=== PATIENT | female | born 1945 | race African-American/Black ===

== ENCOUNTER → 2016-12-25 | Outpatient (CLI) | payer OTHER ==
[2016-11-05 16:34] VITALS: BP 140/68
[~2016-12-25] MED LIST: AMLO10TA2 PO; ATOR40TA PO; CARV25TA PO; CHOL20004 PO; CLON0.1T12 PO; DIPH25CA58 PO; ENOX30DI3 SQ; ESCI5TAB8 PO; FAMO40TA4 PO; FERR-26 PO; FURO-68 PO; GLIP5TAB10 PO; HYDR-2869 PO; HYDR100T24 PO; INSU100I17 SQ; LOSA1TAB17 PO; METO100T11 PO; MONT10TA9 PO; MULT-208 PO; NITR0.4T SL
--- NOTE | 2016-12-25 16:13 | KCIC ---
PROCEDURE Bone density DEXA. HISTORY Postmenopausal female. COMPARISON None. FINDINGS Dual photon densitometry of the lumbar spine and left proximal femur is performed. Bone mineral density values are measured in grams per cm2. Lumbar spine, L1-L4, total bone mineral density 1.238, T-score 1.7, Z-score 3.4. Left total femur bone mineral density 0.853, T-score -0.7, Z-score 0.1. World Health Organization criteria for bone mineral density interpretation classify patient's as normal (T-score at or above -1.0), osteopenic (T-score between -1 and -2.5), or osteoporotic (T-score at or below -2.5). IMPRESSION Normal bone mineral density of the lumbar spine and the left femur. Electronically signed by: Alfredito Boykin MD (Dec 25, 2016 16:12:52)
== END | disposition home or self-care (01) ==
LOC: KCIC MAMMO 15:05
PROVIDERS: ATTEND Internal Medicine
DX: Z12.31 Encounter for screening mammogram for malignant neoplasm of breast (principal); Z78.0 Asymptomatic menopausal state
CPT/HCPCS: 77080; G0202; 77067

== ENCOUNTER → 2018-06-22 | Outpatient (CLI) | payer BC ==
[2016-11-05 16:34] VITALS: BP 140/68
[~2018-06-22] MED LIST changes: -CHOL20004 PO; +CHOL200074 PO; -ESCI5TAB8 PO; -FERR-26 PO; +FERR325T14 PO; +LEXAPRO5 MG PO; -LOSA1TAB17 PO; +LOSA1TAB22 PO; +METO-247 PO; -METO100T11 PO
--- NOTE | 2018-06-23 08:39 | KCIC ---
RENAL COMPLETE BILATERAL History: Acute kidney failure Comparison: October 31, 2016 Findings: Multiple sonographic images of the kidneys and urinary bladder are submitted. Right kidney measured 12.1 x 6.6 x 6.3 cm. Left kidney measured 11.6 x 5.4 x 4.3 cm. There is no hydronephrosis of either kidney. Urinary bladder is not visualized as patient voided prior to the exam. There are hypoechoic foci of the kidneys bilaterally. Largest focus superiorly of the right kidney measures 4.2 x 3.3 x 4.6 cm, some internal echoes present and not associated with internal vascularity on color Doppler imaging. There is also superior hypoechoic lesion of the left kidney about 1.4 x 1 x 1.6 cm, mild internal echoes present without internal vascularity on color Doppler imaging. There is some variable thinning of the renal cortices also relative increased echogenicity of the renal parenchyma. Cysts were not demonstrated on previous exam. Impression: 1. There is no hydronephrosis of either kidney. Relative increased echogenicity of the renal parenchyma could be due to medical renal disease. There are somewhat complex cysts of the bilateral kidneys. Urinary bladder is not seen as patient voided prior to exam. Electronically signed by: Anupam Kapoor MD (06/23/2018 8:36 AM) [id number]
== END | disposition home or self-care (01) ==
LOC: KCIC US 14:55
PROVIDERS: ATTEND Internal Medicine Nephrology
DX: N28.1 Cyst of kidney, acquired (principal); I13.0 Hypertensive heart and chronic kidney disease with heart failure and stage 1 through stage 4 chronic kidney disease, or unspecified chronic kidney disease; E11.22 Type 2 diabetes mellitus with diabetic chronic kidney disease; I50.33 Acute on chronic diastolic (congestive) heart failure; N18.4 Chronic kidney disease, stage 4 (severe); E78.5 Hyperlipidemia, unspecified; K21.9 Gastro-esophageal reflux disease without esophagitis; Z88.8 Allergy status to other drugs, medicaments and biological substances
CPT/HCPCS: 76770

== ENCOUNTER → 2018-06-24 | Outpatient (CLI) | payer BC ==
[2016-11-05 16:34] VITALS: BP 140/68
--- NOTE | 2018-06-24 16:54 | KCIC ---
Bilateral digital screening mammograms: Reason for examination: Routine screening. Comparison is made to previous studies dated 12/25/2016 and 06/09/2014. Interpretation is made with the benefit of CAD. The skin and nipples show no abnormalities. No abnormal lymph nodes are seen. The breast parenchyma is predominantly fatty. (Breast density: Category A.) There are no dominant masses, suspicious calcifications or architectural distortions. Vascular calcifications are again seen. Impression: No evidence of malignancy. Recommend routine screening. BI-RADS Category 1: Negative. "Our facility is accredited by the [employer] Mammography Program." This patient's information has been entered into a reminder system for the patient to be notified with the results of her examination and a target date for the next mammogram. Electronically signed by: Juanita Ott MD (06/24/2018 4:51 PM) [id number]
== END | disposition home or self-care (01) ==
LOC: KCIC MAMMO 15:09
PROVIDERS: ATTEND Internal Medicine
DX: Z12.31 Encounter for screening mammogram for malignant neoplasm of breast (principal); I13.0 Hypertensive heart and chronic kidney disease with heart failure and stage 1 through stage 4 chronic kidney disease, or unspecified chronic kidney disease; E11.22 Type 2 diabetes mellitus with diabetic chronic kidney disease; I50.33 Acute on chronic diastolic (congestive) heart failure; N18.4 Chronic kidney disease, stage 4 (severe); E78.5 Hyperlipidemia, unspecified; E87.6 Hypokalemia; K21.9 Gastro-esophageal reflux disease without esophagitis; E83.42 Hypomagnesemia; Z88.8 Allergy status to other drugs, medicaments and biological substances
CPT/HCPCS: 77067

== ENCOUNTER → 2019-04-04 | Outpatient (CLI) | payer OTHER ==
[2019-03-08 11:15] VITALS: BP 198/84
[~2019-04-04] MED LIST changes: -AMLO10TA2 PO; +AMLO10TA8 PO; +MAG HYDROX/ALUMINUM HYD/SIMETH 30 ML ORAL.SUSP PO ONE; +ZOLPIDEM 5 MG TABLET. PO ONE
--- NOTE | 2019-04-05 13:24 | SLEEP ---
DATE OF STUDY: 04/04/2019 SLEEP STUDY ATTENDING PHYSICIAN: Dre Ferro MD. The patient is a 74-year-old who weighs 175 pounds with a BMI of 30. The patient's Tad score was 16 suggesting moderate to severe subjective hypersomnia. The patient has a history of sleep apnea and has been on BiPAP at 20/12. The patient has lost weight and that was close to 40 pounds and as a result was referred back for another split night study. During the night study, the patient spent 416 minutes in bed and slept for 297 minutes with a low sleep efficiency of 71%. Sleep latency was 38 minutes with a REM latency of 335 minutes. Overall, sleep architecture showed increased stage 1 sleep, normal stage 2 sleep, normal slow wave and normal REM sleep. During the initial diagnostic portion of the study, the patient slept for 96 minutes. During that time, there were 9 obstructive apneas, 5 mixed apneas, no central apneas and 28 hypopneas. The patient's apnea-hypopnea index was 26 per hour with a supine index of 43 per hour. REM sleep was not seen during the diagnostic portion of the study. Nocturnal oximetry study revealed an average oxygen saturation 95% with the lowest of 89%. Only 0.2 minutes were spent in oxygen saturation less than 89%. EKG monitoring revealed no arrhythmias. No clinically significant PLMS seen. The patient met the criteria for CPAP initiation. It was started at 5 cm water and titrated up to 18 cm water. At the final pressure, the patient slept for 53 minutes. The patient had entire time in REM sleep. There was no supine sleep seen. The patient's AHI was reduced to 5 per hour due to few rebound central apneas. Oxygen saturation remained above 94%. The patient used a small size full face mask. IMPRESSION: 1. Moderate sleep apnea-hypopnea syndrome with worsening during supine sleep. Total AHI of 26 per hour and a supine AHI of 43 per hour. REM sleep was not seen during the diagnostic portion of the study. 2. No clinically significant nocturnal hypoxia. 3. No clinically significant periodic limb movements. RECOMMENDATIONS: 1. CPAP at 18 cm water completely eliminated the patient's sleep apnea and should be used on a nightly basis. 2. Follow up in 4-6 weeks to assess compliance with CPAP and to document clinical improvement. 3. Weight loss is advised. 4. Avoid [employer] depressants. 5. Caution regarding driving until symptoms of sleep apnea resolve with the use of CPAP. UNA STEWART MD DR: SACHA/leslie JOB#: [id number] / [id number] DER Ward MD [facility]
== END | disposition home or self-care (01) ==
LOC: SLPLAB 19:02
PROVIDERS: ATTEND Internal Medicine Critical Care Medicine
DX: G47.33 Obstructive sleep apnea (adult) (pediatric) (principal)
CPT/HCPCS: 95810

== ENCOUNTER 2020-07-31 11:27 | Inpatient (IN) | payer OTHER ==
[~2020-07-31] VITALS: Ht 162.6 cm; Wt 71.4 kg
[~2020-07-31 11:27] MED LIST changes: +ASPI-886 PO; +DILT240C33 PO; +EPOE20002 SUBCUT; +FLUT16SP NS; +IBUP-985 PO; +INSU100I13 SQ; +INSU100I27 SQ; +ISOS30TA4 PO; +ISOS60TA2 PO; +LORA10TA3 PO; -MAG HYDROX/ALUMINUM HYD/SIMETH 30 ML ORAL.SUSP PO ONE; +MONT10TA49 PO; -MONT10TA9 PO; -NITR0.4T SL; +NITR0.4T24 SL; +SENN-82 PO; -ZOLPIDEM 5 MG TABLET. PO ONE
[2020-07-31 12:18] LABS: BASO # 0.1 x10^3/uL (0.0-0.2); BASO % 1 % (0-3); EOS # 0.2 x10^3/uL (0.0-0.7); EOS % 3 % (0-3); HEMATOCRIT 31.6 % (36.0-47.0); HEMOGLOBIN 10.8 g/dL (12.0-15.5); LYMPH # 1.5 x10^3/uL (1.0-4.8); LYMPH % 25 % (24-48); MEAN CORPUSCULAR HEMOGLOBIN 31 pg (25-35); MEAN CORPUSCULAR HGB CONC 34 g/dL (31-37); MEAN CORPUSCULAR VOLUME 91 fL (79-100); MONO # 0.6 x10^3/uL (0.0-1.1); MONO % 10 % (0-9); NEUT # 3.7 x10^3/uL (1.8-7.7); NEUT % 61 % (31-73); PLATELET COUNT 185 x10^3/uL (140-400); RED BLOOD COUNT 3.46 x10^6/uL (3.50-5.40); RED CELL DISTRIBUTION WIDTH 14.6 % (11.5-14.5)
[2020-07-31 12:24] LABS: CALCIUM 9.2 mg/dL (8.5-10.1); CREATININE 4.7 mg/dL (0.6-1.0); GFR 10.9; POTASSIUM 3.7 mmol/L (3.5-5.1)
[2020-07-31 12:28] LABS: PROTHROMBIN TIME PATIENT 12.7 SEC (11.7-14.0)
[2020-07-31 12:28] LABS: BILIRUBIN,URINE NEGATIVE (NEG); CLARITY,URINE CLEAR; COLOR,URINE YELLOW; NITRITE,URINE NEGATIVE (NEG); PH,URINE 7.5 (<5.0-8.0); PROTEIN,URINE >=300 mg/dL (NEG-TRACE)
[2020-07-31 12:30] LABS: ALBUMIN 3.5 g/dL (3.4-5.0); ALBUMIN/GLOBULIN RATIO 1.1 (1.0-1.7); TOTAL BILIRUBIN 0.5 mg/dL (0.2-1.0); TOTAL PROTEIN 6.8 g/dL (6.4-8.2)
[2020-07-31] MEDS ORDERED: CONTRAST GIVEN. MC PRN (12:30)
[2020-07-31] MEDS ORDERED: IOHEXOL 350 MG/ML 100 ML VIAL. IV ONE (12:30)
--- NOTE | 2020-07-31 12:42 | PHYS DOC ---
Past Medical History Past Medical History: Hypertension, Renal Failure Past Surgical History: Other Additional Past Surgical Histo: LEFT ARM FISTULA Smoking Status: Never Smoker Alcohol Use: None Drug Use: None General Adult EDM: Chief Complaint: MULTIPLE COMPLAINTS HPI: HPI: Patient is a 75 year old female who presents to the emergency room from Dr. Cee's office with multiple complaints. Dr. Cee called and stated that she has been having neck swelling that has been very significant over the last week. She does have a fistula on the same side and there is some concern for a clot. He did an ultrasound which was normal. He was requesting a CT angios of the ne ck and chest to evaluate for clot. Patient states that she has been having pain and swelling in her neck. She also developed abdominal pain in her lower abdomen with nausea, vomiting, diarrhea overnight. She feels weak and is having a difficult time walking. She denies any URI symptoms. Review of Systems: Review of Systems: General: Denies fever, chills, sweats,. Reports fatigue Eyes: Denies drainage, blurred vision, eye redness HENT: Denies rhinorrhea, sore throat, earache Respiratory: Denies cough, shortness of breath, wheezing Cardiac: Denies edema, palpitations, chest pain GI: Reports abdominal pain, Nausea, vomiting MSK: Denies back pain. Reports neck pain Skin: Denies rash, jaundice Neuro: Denies headache, dizziness Psychiatric: Denies SI/HI Heart Score: Risk Factors: Risk Factors: DM, Current or recent (<one month) smoker, HTN, HLP, family history of CAD, obesity. Risk Scores: Score 0 - 3: 2.5% MACE over next 6 weeks - Discharge Home Score 4 - 6: 20.3% MACE over next 6 weeks - Admit for Clinical Observation Score 7 - 10: 72.7% MACE over next 6 weeks - Early Invasive Strategies Allergies: Allergies: Allergies Coded Allergies Type Severity Reaction Last Updated Verified hydralazine Allergy Intermediate 04/20/19 Yes lisinopril Allergy Intermediate 04/20/19 Yes metformin Allergy Intermediate 04/20/19 Yes sertraline Allergy Intermediate 04/20/19 Yes Physical Exam: PE: General: Awake, alert, NAD. Well Nourished, well hydrated. Cooperative HEENT: Atraumatic, EOMI, PERRL, airway patent Neck: Supple, trachea midline Respiratory: CTA bilaterally, normal effort, no wheezing/crackles CV: RRR, no murmur, cap refill <2, left fistula and upper arm with thrill GI: Soft, nondistended, mild lower abdominal tenderness, no masses MSK: No obvious deformities Skin: Warm, dry, intact Neuro: A&O x3, speech NL, sensory and motor grossly intact, no focal deficits Psych: Normal affect, normal mood, not suicidal or homicidal Current Patient Data: Vital Signs: Vital Signs Date Time Temp Pulse Resp B/P (MAP) Pulse Ox O2 Delivery O2 Flow Rate FiO2 07/31/20 11:54 98.3 64 18 210/85 (126) 96 Room Air 98.3 EKG: EKG: [] Radiology/Procedures: Radiology/Procedures: [] Course & Med Decision Making: Course & Med Decision Making Pertinent Labs and Imaging studies reviewed. (See chart for details) Patient 75-year-old female presents the emergency room multiple complaints. CT angios of the neck and chest were done to evaluate for clot and was negative. CT abdomen pelvis was also added due to new onset abdominal symptoms and was negative. At this time patient is having a difficult time walking and is unable to care for herself at home. She will be admitted to Dr. Cee for further evaluation. Rolo Disclaimer: Rolo Disclaimer: This electronic medical record was generated, in whole or in part, using a voice recognition dictation system. Departure Departure Impression: Primary Impression: ESRD (end stage renal disease) Additional Impressions: Weakness Neck swelling Disposition: ADMITTED INPATIENT Condition: IMPROVED Referrals: DRE CEE MD (PCP) Justicifation of Admission Dx: Justifications for Admission: Justification of Admission Dx: Yes KONG JOÉS MD Jul 31, 2020 12:42
[2020-07-31 12:43] LABS: BACTERIA,URINE FEW /HPF (0-FEW); RBC,URINE RARE /HPF (0-2)
--- NOTE | 2020-07-31 13:42 | RAD ---
EXAM: CT Angiogram of the Neck INDICATION: Right sided neck swelling. TECHNIQUE: CT images were obtained through the neck per standard CTA protocol. Multiplanar and 3D reformatted images were generated from the CT dataset on an independent workstation. All CT scans performed at this facility utilize dose optimization techniques as appropriate to the exam, including the following: Automated exposure control and adjustment of the mA and/or KV according to patient size (this includes techniques or standardized protocols for targeted exams where dose is indication/reason for exam). IV CONTRAST: Administered COMPARISON: None FINDINGS: AORTA: 3 vessel configuration of arch. No dissection or acute aortic injury. No hemodynamically significant great vessel origin stenosis. RIGHT CAROTID: Right common carotid artery is widely patent. There is a retropharyngeal course to the distal common carotid artery with similar course of the proximal right internal cervical carotid artery. Calcified plaque is present at the right carotid bulb. No flow-limiting stenosis is apparent. LEFT CAROTID: Left common carotid artery is tortuous but widely patent. Also takes a slightly retropharyngeal course, continued by the proximal left cervical internal carotid artery. There is dense, near circumferential plaque at the carotid bulb and proximal right internal carotid artery that results in at least 50-69 percent luminal stenosis. VERTEBRAL ARTERIES: Codominant No evidence of dissection or flow limiting stenosis. Subclavian arteries (SCAs) are visualized and patent. SOFT TISSUES: Soft tissues show enlargement of the bilateral thyroid lobes with a dominant inferior pole left thyroid lobe nodule measuring 3 cm, recommended for more detailed evaluation by thyroid ultrasound. Lung apices are clear. Patient has a maxillary dental prosthesis. Where applicable, evaluation of ICA stenosis was performed using NASCET criteria, where the site of greatest stenosis is compared to the diameter of the ICA distal to the carotid bulb. IMPRESSION: 1. Scattered atherosclerotic plaquing and cervical arterial tortuosity, potentially sequelae of long-standing hypertension. There is 50-69 percent stenosis of the left cervical internal carotid artery near its origin. Otherwise no hemodynamically significant. This stenosis is identified in the cervical great vessels. 2. Incidental thyromegaly with the dominant left thyroid lobe nodule. The enlarged thyroid may explain the patient's right-sided neck swelling. Correlate clinically. Recommend correlation with thyroid ultrasound. EXAM: CT Chest angiogram with IV contrast INDICATION: Reason: Neck swelling TECHNIQUE: Multi-detector row CT images were acquired from the thoracic inlet through the upper abdomen with the use of IV contrast. Images were acquired in the arterial phase and reviewed with 3-D VRT reformatted images. Sagittal and coronal images were acquired from the transaxial data. All CT scans performed at this facility utilize dose optimization techniques as appropriate to the exam, including the following: Automated exposure control and adjustment of the mA and/or KV according to patient size (this includes techniques or standardized protocols for targeted exams where dose is indication/reason for exam). IV CONTRAST: Administered COMPARISON: CT angiogram of the neck FINDINGS: CARDIOVASCULAR: Mild cardiomegaly. Coronary calcifications. No pericardial effusion. Normal caliber thoracic aorta with scattered calcifications but no aneurysm and no flow-limiting stenosis or evidence of dissection. Conventional arch anatomy. Visualized pulmonary arteries are unremarkable as well. There is some respiratory motion artifact that degrades detail. MEDIASTINUM & WILL: No adenopathy or masses. LUNGS: Scattered minimal atelectatic changes in the bilateral lower lobes. No pulmonary infiltrate, nodule, or other focal abnormality is appreciated. PLEURAL SPACE: No pleural effusions or pneumothorax. OSSEOUS & SOFT TISSUE: Unremarkable ABDOMEN: The visualized portions of the upper abdomen show a 6 mm round low-density lesion in the right hepatic lobe as well as post cholecystectomy surgical changes. Partially imaged nodule 1.9 cm in the vicinity of the superior pole left kidney is also evident.. IMPRESSION: 1. No evidence of a mediastinal mass causing SVC syndrome. 2. There is a probable multinodular thyroid goiter, recommended for ultrasound evaluation on an elective basis. It probably explains the patient's neck swelling. 3. There is cardiomegaly and atherosclerosis including coronary artery disease. Recommend clinical follow-up. EXAM: CT Abdomen and Pelvis with IV contrast INDICATION: Reason: abd pain omni 350 90ml (from cta neck/chest) / Spl. Instructions: / History: TECHNIQUE: Multi-detector row CT images were acquired from the lung bases through the abdomen and pelvis with the use of IV contrast. Sagittal and coronal images were acquired from the transaxial data. All CT scans performed at this facility utilize dose optimization techniques as appropriate to the exam, including the following: Automated exposure control and adjustment of the mA and/or KV according to patient size (this includes techniques or standardized protocols for targeted exams where dose is indication/reason for exam). IV CONTRAST: Administered ORAL CONTRAST: Not administered COMPARISON: CT angiogram chest of the same day, and abdomen and pelvis CT without IV contrast of 10/31/2016.. FINDINGS: LOWER CHEST: Cardiomegaly. Possible trace right pleural effusion. LIVER: 4 mm low-density lesion in the right hepatic lobe is statistically likely a cyst but not completely characterized on this single phase exam. BILIARY SYSTEM: Gallbladder is surgically absent. There is postcholecystectomy biliary distention with the common bile duct in the pancreatic head measuring 11 mm in diameter. PANCREAS: Unremarkable SPLEEN: Unremarkable ADRENALS: Unremarkable KIDNEYS & URETERS: Left kidney shows a superior pole 2 cm nodule measuring 50 HU that is not clearly cystic. It is enlarged slightly from 2016 where it previously measured 1.3 cm wide (and measured 12.5 HU density) and requires formal renal mass protocol imaging given increase in size and soft tissue density. Otherwise the left kidney and ureter are unremarkable. The right kidney shows interval increase in size of the previously subtle 3 cm slightly hyperdense lesion which now measures 6.7 cm in diameter and has Hounsfield units measuring 33, consistent with a hemorrhagic cyst or solid mass. Due to its increase in size and heterogeneous increased internal density, this requires additional imaging and is recommended for renal mass protocol abdominal MRI or CT. An initial renal ultrasound could be pursued in initial characterization. Additional smaller lesions in the right renal cortex are seen, too small to characterize. The right ureter is unremarkable. BLADDER: Decompressed. Mild diffuse wall thickening is nonspecific and could reflect cystitis in the appropriate clinical context. The bladder neck is funneled in the pelvic floor and this could reflect some amount of pelvic floor relaxation. REPRODUCTIVE ORGANS: Hysterectomy. Ovaries are unremarkable. GASTROINTESTINAL: Scattered colonic diverticuli. No findings suspicious for acute diverticulitis. The appendix is normal. MESENTERY/PERITONEUM/RETROPERITONEUM: Trace ascites. No free air. No discrete fluid collection. VASCULAR: Scattered arterial calcifications. No aneurysm. No findings suspicious for flow-limiting stenosis. No large vessel occlusion. LYMPH NODES: No adenopathy OSSEOUS & SOFT TISSUES: Unremarkable IMPRESSION: Although no specific cause for abdominal pain is identified, patient does have interval change in dominant lesions in both kidneys that are recommended for renal mass protocol imaging follow-up to exclude enlarging hemorrhagic cysts or solid renal neoplasms. No other acute findings in the abdomen or pelvis are identified on contrast enhanced CT. Electronically signed by: Martinez Barahona MD (07/31/2020 1:39 PM) [id number]
[2020-07-31 14:42] LABS: FREE T4 1.1 ng/dL (0.76-1.46); THYROID STIM HORMONE (TSH) 1.092 uIU/mL (0.358-3.74)
[2020-07-31] MEDS ORDERED: IV NORMAL SALINE 500ML BAG 500 ML IV ONE (17:15)
--- NOTE | 2020-07-31 17:30 | NUR ---
Pt here from ER and placed in bed. Rates pain at 0/10.
[2020-07-31] MEDS ORDERED: INSU100V13 SQ (18:01)
[2020-07-31] MEDS ORDERED: HYDR-2868 PO (18:01)
--- NOTE | 2020-07-31 18:02 | NUR ---
Pt's home meds unknown, pharmacy contacted, med list updated with current meds per pt's pharmacy.
[2020-07-31] MEDS ORDERED: ACETAMINOPHEN 325 MG TABLET. PO PRN (18:45)
[2020-07-31] MEDS ORDERED: ONDANSETRON PF 4 MG/2 ML VIAL. IVP PRN (18:45)
[2020-07-31 19:05] VITALS: BP 179/56
[2020-07-31] MEDS ORDERED: INSULIN GLARGINE SYRINGE. SQ SCH (21:00)
--- NOTE | 2020-07-31 21:02 | NUR ---
Pt. states she is not allergic to hydralazine. Medication was taken off allergy list.
[2020-07-31] MEDS: ATORVASTATIN CALCIUM 40 MG TABLET. PO SCH (21:39)
[2020-07-31] MEDS: hydrALAZINE 25 MG TABLET PO SCH (21:39)
[2020-07-31] MEDS: CARVEDILOL 12.5 MG TABLET. PO SCH (21:40)
[2020-07-31 22:45] VITALS: BP 160/43
[2020-07-31] MEDS: fentaNYL PF VIAL 100 MCG/2 ML VIAL IV PRN (23:22)
[2020-08-01 02:45] VITALS: BP 174/54
[2020-08-01 07:00] VITALS: BP 172/57
[2020-08-01 07:25] LABS: BASO % 0 % (0-3); EOS # 0.1 x10^3/uL (0.0-0.7); EOS % 1 % (0-3); HEMATOCRIT 34.9 % (36.0-47.0); HEMOGLOBIN 11.7 g/dL (12.0-15.5); LYMPH # 1.6 x10^3/uL (1.0-4.8); LYMPH % 18 % (24-48); MEAN CORPUSCULAR HEMOGLOBIN 31 pg (25-35); MEAN CORPUSCULAR HGB CONC 34 g/dL (31-37); MEAN CORPUSCULAR VOLUME 92 fL (79-100); MONO # 0.5 x10^3/uL (0.0-1.1); MONO % 6 % (0-9); NEUT # 6.8 x10^3/uL (1.8-7.7); NEUT % 75 % (31-73); PLATELET COUNT 224 x10^3/uL (140-400)
[2020-08-01] MEDS ORDERED: IV DEXTROSE 5% 250 ML IV ONE (07:29)
[2020-08-01] MEDS ORDERED: DEXTROSE 50% 25 GM / 50ML DISP.SYRIN. IV ONE ×2 (07:30→07:45)
[2020-08-01 07:37] LABS: ALBUMIN 3.5 g/dL (3.4-5.0); ALBUMIN/GLOBULIN RATIO 1.1 (1.0-1.7); CALCIUM 9.3 mg/dL (8.5-10.1); CREATININE 5.7 mg/dL (0.6-1.0); GFR 8.7; POTASSIUM 3.4 mmol/L (3.5-5.1); TOTAL BILIRUBIN 0.6 mg/dL (0.2-1.0); TOTAL PROTEIN 6.7 g/dL (6.4-8.2)
--- NOTE | 2020-08-01 09:05 | PDOC2 ---
GI CONSULT Date of Service: DATE: 08/01/20 TIME: 09:05 Reason For Consult: vomiting HPI: HPI: 75 y/o female evaluated in ER for a variety of complaints. Tells me 2 weeks of "neck pooping out like a coke bottle" (on right side), swollen right eye, and bilateral foot pain (says related to neuropathy). Not the best historian. GI-[facility], had some nausea w/o vomiting. Appetite not great. H/o reflux controlled w/ medication. No dysphagia or odynophagia. Stooled Thursday, felt constipated yesterday. Hard to say if deals w/ constipation on a regular basis - might take a stool softener or laxative sometimes? No hematochezia or melena. Not sure about weight loss. Reports EGD and colonoscopy in [place] in 2009 - recalls "diverticulitis." S/p cholecystectomy (doesn't remember if had stones). Denies liver, pancreas, and PUD history. Chronic anemia w/ iron studies c/w ACD in 2019 (and normal B12). Past notes mentions h/o hiatal hernia, gastritis, diverticulosis, hemorrhoids, and IBS-D. Med list includes ASA, epogen, and famotidine. PMH: PMH: HTN, HLD, CAMILLA, ESRD on HD, depression, OA, DM cholecystectomy, tonsillectomy, hysterectomy, LAV fistula Social History: ALCOHOL: none Drugs: None ROS: GEN: Denies fevers, chills, sweats HEENT: Denies blurred vision, sore throat CV: Denies chest pain RESP: Denies shortness of air, cough GI: Per HPI : Denies hematuria, dysuria ENDO: Denies weight changes NEURO: +neuropathy pain MSK: Denies weakness, joint pain/swelling SKIN: Denies jaundice, pruritus Vitals: Vitals: Vital Signs Date Time Temp Pulse Resp B/P (MAP) Pulse Ox O2 Delivery O2 Flow Rate FiO2 08/01/20 07:00 97.8 61 18 172/57 (95) 95 Room Air 97.8 08/01/20 02:45 2.0 Labs: Labs: Laboratory Tests Test 07/31/20 12:10 07/31/20 12:18 07/31/20 21:04 08/01/20 06:37 White Blood Count 6.0 x10^3/uL (4.0-11.0) 9.0 x10^3/uL (4.0-11.0) Red Blood Count 3.46 x10^6/uL (3.50-5.40) 3.80 x10^6/uL (3.50-5.40) Hemoglobin 10.8 g/dL (12.0-15.5) 11.7 g/dL (12.0-15.5) Hematocrit 31.6 % (36.0-47.0) 34.9 % (36.0-47.0) Mean Corpuscular Volume 91 fL (79-100) 92 fL (79-100) Mean Corpuscular Hemoglobin 31 pg (25-35) 31 pg (25-35) Mean Corpuscular Hemoglobin Concent 34 g/dL (31-37) 34 g/dL (31-37) Red Cell Distribution Width 14.6 % (11.5-14.5) 15.0 % (11.5-14.5) Platelet Count 185 x10^3/uL (140-400) 224 x10^3/uL (140-400) Neutrophils (%) (Auto) 61 % (31-73) 75 % (31-73) Lymphocytes (%) (Auto) 25 % (24-48) 18 % (24-48) Monocytes (%) (Auto) 10 % (0-9) 6 % (0-9) Eosinophils (%) (Auto) 3 % (0-3) 1 % (0-3) Basophils (%) (Auto) 1 % (0-3) 0 % (0-3) Neutrophils # (Auto) 3.7 x10^3/uL (1.8-7.7) 6.8 x10^3/uL (1.8-7.7) Lymphocytes # (Auto) 1.5 x10^3/uL (1.0-4.8) 1.6 x10^3/uL (1.0-4.8) Monocytes # (Auto) 0.6 x10^3/uL (0.0-1.1) 0.5 x10^3/uL (0.0-1.1) Eosinophils # (Auto) 0.2 x10^3/uL (0.0-0.7) 0.1 x10^3/uL (0.0-0.7) Basophils # (Auto) 0.1 x10^3/uL (0.0-0.2) 0.0 x10^3/uL (0.0-0.2) Prothrombin Time 12.7 SEC (11.7-14.0) Prothromb Time International Ratio 1.0 (0.8-1.1) Sodium Level 138 mmol/L (136-145) 143 mmol/L (136-145) Potassium Level 3.7 mmol/L (3.5-5.1) 3.4 mmol/L (3.5-5.1) Chloride Level 100 mmol/L (98-107) 102 mmol/L (98-107) Carbon Dioxide Level 34 mmol/L (21-32) 32 mmol/L (21-32) Anion Gap 4 (6-14) 9 (6-14) Blood Urea Nitrogen 33 mg/dL (7-20) 37 mg/dL (7-20) Creatinine 4.7 mg/dL (0.6-1.0) 5.7 mg/dL (0.6-1.0) Estimated GFR (Cockcroft-Gault) 10.9 8.7 BUN/Creatinine Ratio 7 (6-20) 6 (6-20) Glucose Level 187 mg/dL (70-99) 49 mg/dL (70-99) Calcium Level 9.2 mg/dL (8.5-10.1) 9.3 mg/dL (8.5-10.1) Total Bilirubin 0.5 mg/dL (0.2-1.0) 0.6 mg/dL (0.2-1.0) Aspartate Amino Transf (AST/SGOT) 17 U/L (15-37) 17 U/L (15-37) Alanine Aminotransferase (ALT/SGPT) 15 U/L (14-59) 12 U/L (14-59) Alkaline Phosphatase 108 U/L (46-116) 101 U/L (46-116) Total Protein 6.8 g/dL (6.4-8.2) 6.7 g/dL (6.4-8.2) Albumin 3.5 g/dL (3.4-5.0) 3.5 g/dL (3.4-5.0) Albumin/Globulin Ratio 1.1 (1.0-1.7) 1.1 (1.0-1.7) Lipase 64 U/L (73-393) Thyroid Stimulating Hormone (TSH) 1.092 uIU/mL (0.358-3.74) Free Thyroxine 1.10 ng/dL (0.76-1.46) Urine Collection Type Unknown Urine Color Yellow Urine Clarity Clear Urine pH 7.5 (<5.0-8.0) Urine Specific [place] 1.015 (1.000-1.030) Urine Protein >=300 mg/dL (NEG-TRACE) Urine Glucose (UA) Negative mg/dL (NEG) Urine Ketones (Stick) Negative mg/dL (NEG) Urine Blood Negative (NEG) Urine Nitrite Negative (NEG) Urine Bilirubin Negative (NEG) Urine Urobilinogen Dipstick 1.0 mg/dL (0.2 mg/dL) Urine Leukocyte Esterase Negative (NEG) Urine RBC Rare /HPF (0-2) Urine WBC 1-4 /HPF (0-4) Urine Squamous Epithelial Cells Many /LPF Urine Bacteria Few /HPF (0-FEW) Glucose (Fingerstick) 169 mg/dL (70-99) Test 08/01/20 07:14 08/01/20 07:28 08/01/20 08:19 Glucose (Fingerstick) 44 mg/dL (70-99) 58 mg/dL (70-99) 140 mg/dL (70-99) Allergies: Coded Allergies: lisinopril (Verified Allergy, Intermediate, 04/20/19) cough metformin (Verified Allergy, Intermediate, 04/20/19) sertraline (Verified Allergy, Intermediate, 04/20/19) Medications: Current Medications Medications (Trade) Dose Ordered Sig/Elfego Route PRN Reason Start Time Stop Time Status Last Admin Dose Admin Iohexol (Omnipaque 350 Mg/ml) 90 ml 1X ONCE IV 07/31/20 12:30 07/31/20 12:31 DC 07/31/20 12:48 Sodium Chloride 500 ml @ 150 mls/hr 1X ONCE IV 07/31/20 17:15 07/31/20 20:34 DC 07/31/20 18:23 Atorvastatin Calcium (Lipitor) 40 mg QHS PO 07/31/20 21:00 07/31/20 21:39 Hydralazine HCl (Apresoline) 25 mg TID PO 07/31/20 21:00 07/31/20 21:39 Carvedilol (Coreg) 25 mg BIDWMEALS PO 07/31/20 20:00 07/31/20 21:40 Insulin Glargine (Lantus Syringe) 25 unit QHS SQ 07/31/20 21:00 08/01/20 08:03 DC 07/31/20 21:47 Acetaminophen (Tylenol) 650 mg PRN Q6HRS PRN PO PAIN 07/31/20 18:45 07/31/20 21:39 Fentanyl Citrate (Fentanyl 2ml Vial) 25 mcg PRN Q3HRS PRN IV SEVERE PAIN 7-10 07/31/20 22:15 07/31/20 23:22 Dextrose (Dextrose 50%-Water Syringe) 12.5 gm 1X ONCE IV 08/01/20 07:45 08/01/20 07:47 DC 08/01/20 07:40 Imaging: Imaging: Neck CTA IMPRESSION: 1. Scattered atherosclerotic plaquing and cervical arterial tortuosity, potentially sequelae of long-standing hypertension. There is 50-69 percentste nosis of the left cervical internal carotid artery near its origin. Otherwise no hemodynamically significant. This stenosis is identified in the cervical great vessels. 2. Incidental thyromegaly with the dominant left thyroid lobe nodule. The enlarged thyroid may explain the patient's right-sided neck swelling. Correlate clinically. Recommend correlation with thyroid ultrasound. Chest CTA IMPRESSION: 1. No evidence of a mediastinal mass causing SVC syndrome. 2. There is a probable multinodular thyroid goiter, recommended for ultrasound evaluation on an elective basis. It probably explains the patient's neck swelling. 3. There is cardiomegaly and atherosclerosis including coronary artery disease. Recommend clinical follow-up. CT A/P IMPRESSION: Although no specific cause for abdominal pain is identified, patient does have interval change in dominant lesions in both kidneys that are recommended for renal mass protocol imaging follow-up to exclude enlarginghemorrhagic cysts or solid renal neoplasms. No other acute findings in theabdomen or pelvis are identified on contrast enhanced CT. PE: GEN: NAD HEENT: Atraumatic, PERRL, poor dentition LUNGS: CTAB HEART: RRR ABD: NABS, S/ND, mild LLQ discomfort EXTREMITY: No edema SKIN: No rashes, no jaundice NEURO/PSYCH: A & O 3, flat A/P: A/P: Neck and eye swelling, feet pain Nausea, decreased appetite, ?constipation, ?lower abd pain ACD, ESRD, DM Thyromegaly/thyroid nodule, renal mass GERD - on H2 edin (ordered 3x weekly here) CRC screen - last in 2009 in [place] ?IBS Diverticulosis S/p cholecystectomy -- GI issues vague, will return w/ Dr. Ramos. Agree with acid-space and storage clerk - might increase frequency or consider trial of PPI. Miralax, etc. if she wants. NATALIA REYES Aug 01, 2020 09:05
[2020-08-01] MEDS: CARVEDILOL 12.5 MG TABLET. PO SCH ×2 (10:02→17:00)
[2020-08-01] MEDS: ASPIRIN ENTERIC COATED 81 MG TABLET.DR. PO SCH (10:03)
[2020-08-01] MEDS: hydrALAZINE 25 MG TABLET PO SCH ×3 (10:03→20:26)
[2020-08-01] MEDS: CITALOPRAM 10 MG TABLET. PO SCH (10:04)
[2020-08-01] MEDS: ISOSORBIDE MONONITRATE ER 30 MG TAB.ER.24H PO SCH (10:05)
[2020-08-01] MEDS: amLODIPine BESYLATE 10 MG TABLET PO SCH (10:05)
[2020-08-01] MEDS ORDERED: IV NORMAL SALINE 1000ML BAG 1,000 ML IV PRN ×2 (10:26)
[2020-08-01] MEDS ORDERED: ALBUMIN HUMAN 25% 200 ML IV PRN (10:30)
[2020-08-01] MEDS ORDERED: POLYETHYLENE GLYCOL 3350 17 GM PACKET. PO PRN (10:30)
[2020-08-01] MEDS ORDERED: DIALYSIS PATIENT. MC PRN ×2 (10:30)
[2020-08-01] MEDS ORDERED: BISACODYL 5 MG TABLET.DR. PO PRN (10:30)
--- NOTE | 2020-08-01 10:38 | PDOC ---
Provider Note Date of Service: DATE: 08/01/20 TIME: 10:38 Provider Note H&P dictated #[id number] Justifications for Admission Other Justification DRE CEE MD Aug 01, 2020 10:38
[2020-08-01 10:57] VITALS: BP 184/59
--- NOTE | 2020-08-01 11:48 | NUR ---
SW following. Discussed with RN, pt from home alone, currently requiring 2L oxygen (SW to determine if pt uses at home). Pt does dialysis MWF at [facility] (ph: [phone]). Pt on a clear liquid diet, PT/OT ordered. SW will continue to follow.
--- NOTE | 2020-08-01 12:00 | NUR ---
Pt asked if she remembered where scoprs in [facility] were done. Pt states she does not remember but would not ask friends.
--- NOTE | 2020-08-01 12:02 | PDOC2 ---
CONSULT Date of Consult Date of Consult DATE: 08/01/20 TIME: 11:57 History of Present Illness Reason for Visit: The patient is a 75 year old female who was admitted through the ER with several complaints including right neck swelling and abdominal pain/diarrhea. She was admitted to Dr Ferro, and he states that she had a recent outpatient thyroid sonogram due to a right neck mass. The patient is a poor historian but does state that she has noticed a bothersome right neck mass. Past Medical History Cardiovascular: CHF, HTN, Hyperlipidemia Pulmonary: Other GI: GERD, Gastritis, Irritable bowel disease Heme/Onc: Anemia NOS Psych: Depression Rheumatologic: No pertinent hx Infectious disease: No pertinent hx Renal/: Chronic renal insuff Endocrine: Diabetes Past Surgical History Past Surgical History: Cholecystectomy, Tonsillectomy, Hysterectomy Family History Family History: Adopted Social History ALCOHOL: none Drugs: None Lives: with Family Domestic Violence: Neg Current Problem List Problem List Problems Medical Problems: (1) ESRD (end stage renal disease) Status: Acute (2) Neck swelling Status: Acute (3) Weakness Status: Acute Current Medications Current Medications Current Medications Iohexol (Omnipaque 350 Mg/ml) 90 ml 1X ONCE IV Last administered on 07/31/20at 12:48; Start 07/31/20 at 12:30; Stop 07/31/20 at 12:31; Status DC Info (CONTRAST GIVEN -- Rx MONITORING) 1 each PRN DAILY PRN MC SEE COMMENTS; Start 07/31/20 at 12:30; Stop 08/02/20 at 12:29 Sodium Chloride 500 ml @ 150 mls/hr 1X ONCE IV Last administered on 07/31/20at 18:23; Start 07/31/20 at 17:15; Stop 07/31/20 at 20:34; Status DC Amlodipine Besylate (Norvasc) 10 mg DAILY PO Last administered on 08/01/20at 10:05; Start 08/01/20 at 09:00 Aspirin (Ecotrin) 81 mg DAILYWBKFT PO Last administered on 08/01/20at 10:03; Start 08/01/20 at 08:00 Atorvastatin Calcium (Lipitor) 40 mg QHS PO Last administered on 07/31/20at 21:39; Start 07/31/20 at 21:00 Diltiazem HCl (Cardizem 24hr Cd) 240 mg DAILY PO Last administered on 08/01/20at 10:04; Start 08/01/20 at 09:00 Hydralazine HCl (Apresoline) 25 mg TID PO Last administered on 08/01/20at 10:03; Start 07/31/20 at 21:00 Carvedilol (Coreg) 25 mg BIDWMEALS PO Last administered on 08/01/20at 10:02; Start 07/31/20 at 20:00 Darbepoetin Tj (ARANESP for DIALYSIS PTS) 40 mcg WEEKLYHS SQ ; Start 08/06/20 at 21:00 Citalopram Hydrobromide (CeleXA) 10 mg DAILY PO Last administered on 08/01/20at 10:04; Start 08/01/20 at 09:00 Famotidine (Pepcid) 20 mg QMWF PO ; Start 08/01/20 at 16:00; Stop 08/01/20 at 11:13; Status DC Insulin Glargine (Lantus Syringe) 25 unit QHS SQ Last administered on 07/31/20at 21:47; Start 07/31/20 at 21:00; Stop 08/01/20 at 08:03; Status DC Isosorbide Mononitrate (Imdur) 60 mg DAILY PO Last administered on 08/01/20at 10:05; Start 08/01/20 at 09:00 Acetaminophen (Tylenol) 650 mg PRN Q6HRS PRN PO PAIN Last administered on 07/31/20at 21:39; Start 07/31/20 at 18:45 Ondansetron HCl (Zofran) 4 mg PRN Q6HRS PRN IVP NAUSEA/VOMITING; Start 07/31/20 at 18:45 Fentanyl Citrate (Fentanyl 2ml Vial) 25 mcg PRN Q3HRS PRN IV SEVERE PAIN 7-10 Last administered on 07/31/20at 23:22; Start 07/31/20 at 22:15 Dextrose 250 ml @ As Directed STK-MED ONCE IV ; Start 08/01/20 at 07:29; Stop 08/01/20 at 07:29; Status DC Dextrose (Dextrose 50%-Water Syringe) 25 gm STK-MED ONCE IV ; Start 08/01/20 at 07:30; Stop 08/01/20 at 07:30; Status DC Dextrose (Dextrose 50%-Water Syringe) 12.5 gm 1X ONCE IV Last administered on 08/01/20at 07:40; Start 08/01/20 at 07:45; Stop 08/01/20 at 07:47; Status DC Polyethylene Glycol (miraLAX PACKET) 17 gm PRN DAILY PRN PO CONSTIPATION-1ST CHOICE; Start 08/01/20 at 10:30 Bisacodyl (Dulcolax Tab) 5 mg PRN DAILY PRN PO CONSTIPATION-2ND CHOICE; Start 08/01/20 at 10:30 Sodium Chloride 1,000 ml @ 1,000 mls/hr Q1H PRN IV hypotension; Start 08/01/20 at 10:26; Stop 08/01/20 at 16:25 Albumin Human 200 ml @ 200 mls/hr 1X PRN PRN IV Hypotension; Start 08/01/20 at 10:30; Stop 08/01/20 at 16:29 Sodium Chloride 1,000 ml @ 400 mls/hr Q2H30M PRN IV PATENCY; Start 08/01/20 at 10:26; Stop 08/01/20 at 22:25 Info (PHARMACY MONITORING -- do not chart) 1 each PRN DAILY PRN MC SEE COMMENTS; Start 08/01/20 at 10:30 Info (PHARMACY MONITORING -- do not chart) 1 each PRN DAILY PRN MC SEE COMMENTS; Start 08/01/20 at 10:30 Heparin Sodium (Porcine) (Heparin Sodium) 5,000 unit Q12HR SQ ; Start 08/01/20 at 21:00 Pantoprazole Sodium (Protonix) 40 mg DAILYAC PO ; Start 08/01/20 at 12:00 Calcium Polycarbophil (Fibercon) 525 mg QODAY PO ; Start 08/01/20 at 12:00 Active Scripts Active Isosorbide Mononitrate Er (Isosorbide Mononitrate) 60 Mg Tab.er.24h 1 Tab PO D AILY Aspirin Ec (Aspirin) 81 Mg Tablet.dr 81 Mg PO DAILYWBKFT 30 Days Diltiazem 24Hr Cd (Diltiazem HCl) 240 Mg Cap.er.24h 240 Mg PO DAILY 30 Days Coreg (Carvedilol) 25 Mg Tablet 1 Tab PO BID Reported Levemir (Insulin Detemir) 100 Unit/1 Ml Vial 25 Unit SQ DAILY Hydralazine Hcl 25 Mg Tablet 1 Tab PO TID Epogen (Epoetin Tj) 2,000 Unit/1 Ml Vial 12,500 Unit SUBCUT Q2WKS Lexapro (Escitalopram Oxalate) 5 Mg Tablet 1 Tab PO DAILY Amlodipine Besylate 10 Mg Tablet 10 Mg PO DAILY Famotidine 40 Mg Tablet 40 Mg PO HS Lipitor (Atorvastatin Calcium) 40 Mg Tablet 1 Tab PO DAILY Allergies Allergies: Coded Allergies: lisinopril (Verified Allergy, Intermediate, 04/20/19) cough metformin (Verified Allergy, Intermediate, 04/20/19) sertraline (Verified Allergy, Intermediate, 04/20/19) ROS General: YES: Fatigue Eyes: No Blurry vision, No Decreased vision, No Double vision, No Dry eyes, No Excessive tearing, No Eye Pain, No Itchy Eyes, No Loss of vision, No Photophobia, No Scotomata, No Uses contacts, No Uses glasses, No Other HEENT: YES: Other (R neck mass) ALLERGY AND IMMUNOLOGY: No: Hives, Insect Bite Sensitivity, Itchy/Watery Eyes, Nasal Congestion, Post Nasal Drip, Seasonal Allergies, Other Hematological and Lymphatic: No: Bleeding Problems, Blood Clots, Blood Transfusions, Brusing, Night Sweats, Pallor, Swollen Lymph Nodes, Other Cardiovascular: No Chest Pain, No Palpitations, No Orthopnea, No Paroxysmal Noc. Dyspnea, No Edema, No Lt Headedness, No Other Gastrointestinal: Yes Nausea, Yes Abdominal Pain, Yes Diarrhea Genitourinary: No Dysuria, No Frequency, No Incontinence, No Hematuria, No Retention, No Discharge, No Urgency, No Pain, No Flank Pain, No Other, No , No , No , No , No , No , No Neurological: No Behavorial Changes, No Bowel/Bladder ControlChng, No Confusion, No Dizziness, No Gait Disturbance, No Headaches, No Impaired Coord/balance, No Memory Loss, No Numbness/Tingling, No Seizures, No Speech Problems, No Tremors, No Visual Changes, No Weakness, No Other Skin: No Dry Skin, No Eczema, No Hair Changes, No Lumps, No Mole Changes, No Mottling, No Nail Changes, No Pruritus, No Rash, No Skin Lesion Changes, No Other, No Acne Physical Exam General: Alert, Oriented X3 HEENT: Other (R thyroid enlarged, soft, not fixed, no clear adenopathy) Abdomen: Soft Extremities: No clubbing, No cyanosis Skin: No rashes Neuro: Normal speech Vitals VITALS Vital Signs Date Time Temp Pulse Resp B/P (MAP) Pulse Ox O2 Delivery O2 Flow Rate FiO2 08/01/20 10:57 97.7 66 17 184/59 (100) 96 Nasal Cannula 2.0 97.7 Labs Labs Laboratory Tests Test 07/31/20 12:10 07/31/20 12:18 07/31/20 21:04 08/01/20 06:37 White Blood Count 6.0 x10^3/uL (4.0-11.0) 9.0 x10^3/uL (4.0-11.0) Red Blood Count 3.46 x10^6/uL (3.50-5.40) 3.80 x10^6/uL (3.50-5.40) Hemoglobin 10.8 g/dL (12.0-15.5) 11.7 g/dL (12.0-15.5) Hematocrit 31.6 % (36.0-47.0) 34.9 % (36.0-47.0) Mean Corpuscular Volume 91 fL (79-100) 92 fL (79-100) Mean Corpuscular Hemoglobin 31 pg (25-35) 31 pg (25-35) Mean Corpuscular Hemoglobin Concent 34 g/dL (31-37) 34 g/dL (31-37) Red Cell Distribution Width 14.6 % (11.5-14.5) 15.0 % (11.5-14.5) Platelet Count 185 x10^3/uL (140-400) 224 x10^3/uL (140-400) Neutrophils (%) (Auto) 61 % (31-73) 75 % (31-73) Lymphocytes (%) (Auto) 25 % (24-48) 18 % (24-48) Monocytes (%) (Auto) 10 % (0-9) 6 % (0-9) Eosinophils (%) (Auto) 3 % (0-3) 1 % (0-3) Basophils (%) (Auto) 1 % (0-3) 0 % (0-3) Neutrophils # (Auto) 3.7 x10^3/uL (1.8-7.7) 6.8 x10^3/uL (1.8-7.7) Lymphocytes # (Auto) 1.5 x10^3/uL (1.0-4.8) 1.6 x10^3/uL (1.0-4.8) Monocytes # (Auto) 0.6 x10^3/uL (0.0-1.1) 0.5 x10^3/uL (0.0-1.1) Eosinophils # (Auto) 0.2 x10^3/uL (0.0-0.7) 0.1 x10^3/uL (0.0-0.7) Basophils # (Auto) 0.1 x10^3/uL (0.0-0.2) 0.0 x10^3/uL (0.0-0.2) Prothrombin Time 12.7 SEC (11.7-14.0) Prothromb Time International Ratio 1.0 (0.8-1.1) Sodium Level 138 mmol/L (136-145) 143 mmol/L (136-145) Potassium Level 3.7 mmol/L (3.5-5.1) 3.4 mmol/L (3.5-5.1) Chloride Level 100 mmol/L (98-107) 102 mmol/L (98-107) Carbon Dioxide Level 34 mmol/L (21-32) 32 mmol/L (21-32) Anion Gap 4 (6-14) 9 (6-14) Blood Urea Nitrogen 33 mg/dL (7-20) 37 mg/dL (7-20) Creatinine 4.7 mg/dL (0.6-1.0) 5.7 mg/dL (0.6-1.0) Estimated GFR (Cockcroft-Gault) 10.9 8.7 BUN/Creatinine Ratio 7 (6-20) 6 (6-20) Glucose Level 187 mg/dL (70-99) 49 mg/dL (70-99) Calcium Level 9.2 mg/dL (8.5-10.1) 9.3 mg/dL (8.5-10.1) Total Bilirubin 0.5 mg/dL (0.2-1.0) 0.6 mg/dL (0.2-1.0) Aspartate Amino Transf (AST/SGOT) 17 U/L (15-37) 17 U/L (15-37) Alanine Aminotransferase (ALT/SGPT) 15 U/L (14-59) 12 U/L (14-59) Alkaline Phosphatase 108 U/L (46-116) 101 U/L (46-116) Total Protein 6.8 g/dL (6.4-8.2) 6.7 g/dL (6.4-8.2) Albumin 3.5 g/dL (3.4-5.0) 3.5 g/dL (3.4-5.0) Albumin/Globulin Ratio 1.1 (1.0-1.7) 1.1 (1.0-1.7) Lipase 64 U/L (73-393) Thyroid Stimulating Hormone (TSH) 1.092 uIU/mL (0.358-3.74) Free Thyroxine 1.10 ng/dL (0.76-1.46) Urine Collection Type Unknown Urine Color Yellow Urine Clarity Clear Urine pH 7.5 (<5.0-8.0) Urine Specific [place] 1.015 (1.000-1.030) Urine Protein >=300 mg/dL (NEG-TRACE) Urine Glucose (UA) Negative mg/dL (NEG) Urine Ketones (Stick) Negative mg/dL (NEG) Urine Blood Negative (NEG) Urine Nitrite Negative (NEG) Urine Bilirubin Negative (NEG) Urine Urobilinogen Dipstick 1.0 mg/dL (0.2 mg/dL) Urine Leukocyte Esterase Negative (NEG) Urine RBC Rare /HPF (0-2) Urine WBC 1-4 /HPF (0-4) Urine Squamous Epithelial Cells Many /LPF Urine Bacteria Few /HPF (0-FEW) Glucose (Fingerstick) 169 mg/dL (70-99) Test 08/01/20 07:14 08/01/20 07:28 08/01/20 08:19 Glucose (Fingerstick) 44 mg/dL (70-99) 58 mg/dL (70-99) 140 mg/dL (70-99) Laboratory Tests Test 07/31/20 12:10 07/31/20 12:18 07/31/20 21:04 08/01/20 06:37 White Blood Count 6.0 x10^3/uL (4.0-11.0) 9.0 x10^3/uL (4.0-11.0) Red Blood Count 3.46 x10^6/uL (3.50-5.40) 3.80 x10^6/uL (3.50-5.40) Hemoglobin 10.8 g/dL (12.0-15.5) 11.7 g/dL (12.0-15.5) Hematocrit 31.6 % (36.0-47.0) 34.9 % (36.0-47.0) Mean Corpuscular Volume 91 fL (79-100) 92 fL (79-100) Mean Corpuscular Hemoglobin 31 pg (25-35) 31 pg (25-35) Mean Corpuscular Hemoglobin Concent 34 g/dL (31-37) 34 g/dL (31-37) Red Cell Distribution Width 14.6 % (11.5-14.5) 15.0 % (11.5-14.5) Platelet Count 185 x10^3/uL (140-400) 224 x10^3/uL (140-400) Neutrophils (%) (Auto) 61 % (31-73) 75 % (31-73) Lymphocytes (%) (Auto) 25 % (24-48) 18 % (24-48) Monocytes (%) (Auto) 10 % (0-9) 6 % (0-9) Eosinophils (%) (Auto) 3 % (0-3) 1 % (0-3) Basophils (%) (Auto) 1 % (0-3) 0 % (0-3) Neutrophils # (Auto) 3.7 x10^3/uL (1.8-7.7) 6.8 x10^3/uL (1.8-7.7) Lymphocytes # (Auto) 1.5 x10^3/uL (1.0-4.8) 1.6 x10^3/uL (1.0-4.8) Monocytes # (Auto) 0.6 x10^3/uL (0.0-1.1) 0.5 x10^3/uL (0.0-1.1) Eosinophils # (Auto) 0.2 x10^3/uL (0.0-0.7) 0.1 x10^3/uL (0.0-0.7) Basophils # (Auto) 0.1 x10^3/uL (0.0-0.2) 0.0 x10^3/uL (0.0-0.2) Prothrombin Time 12.7 SEC (11.7-14.0) Prothromb Time International Ratio 1.0 (0.8-1.1) Sodium Level 138 mmol/L (136-145) 143 mmol/L (136-145) Potassium Level 3.7 mmol/L (3.5-5.1) 3.4 mmol/L (3.5-5.1) Chloride Level 100 mmol/L (98-107) 102 mmol/L (98-107) Carbon Dioxide Level 34 mmol/L (21-32) 32 mmol/L (21-32) Anion Gap 4 (6-14) 9 (6-14) Blood Urea Nitrogen 33 mg/dL (7-20) 37 mg/dL (7-20) Creatinine 4.7 mg/dL (0.6-1.0) 5.7 mg/dL (0.6-1.0) Estimated GFR (Cockcroft-Gault) 10.9 8.7 BUN/Creatinine Ratio 7 (6-20) 6 (6-20) Glucose Level 187 mg/dL (70-99) 49 mg/dL (70-99) Calcium Level 9.2 mg/dL (8.5-10.1) 9.3 mg/dL (8.5-10.1) Total Bilirubin 0.5 mg/dL (0.2-1.0) 0.6 mg/dL (0.2-1.0) Aspartate Amino Transf (AST/SGOT) 17 U/L (15-37) 17 U/L (15-37) Alanine Aminotransferase (ALT/SGPT) 15 U/L (14-59) 12 U/L (14-59) Alkaline Phosphatase 108 U/L (46-116) 101 U/L (46-116) Total Protein 6.8 g/dL (6.4-8.2) 6.7 g/dL (6.4-8.2) Albumin 3.5 g/dL (3.4-5.0) 3.5 g/dL (3.4-5.0) Albumin/Globulin Ratio 1.1 (1.0-1.7) 1.1 (1.0-1.7) Lipase 64 U/L (73-393) Thyroid Stimulating Hormone (TSH) 1.092 uIU/mL (0.358-3.74) Free Thyroxine 1.10 ng/dL (0.76-1.46) Urine Collection Type Unknown Urine Color Yellow Urine Clarity Clear Urine pH 7.5 (<5.0-8.0) Urine Specific [place] 1.015 (1.000-1.030) Urine Protein >=300 mg/dL (NEG-TRACE) Urine Glucose (UA) Negative mg/dL (NEG) Urine Ketones (Stick) Negative mg/dL (NEG) Urine Blood Negative (NEG) Urine Nitrite Negative (NEG) Urine Bilirubin Negative (NEG) Urine Urobilinogen Dipstick 1.0 mg/dL (0.2 mg/dL) Urine Leukocyte Esterase Negative (NEG) Urine RBC Rare /HPF (0-2) Urine WBC 1-4 /HPF (0-4) Urine Squamous Epithelial Cells Many /LPF Urine Bacteria Few /HPF (0-FEW) Glucose (Fingerstick) 169 mg/dL (70-99) Test 08/01/20 07:14 08/01/20 07:28 08/01/20 08:19 Glucose (Fingerstick) 44 mg/dL (70-99) 58 mg/dL (70-99) 140 mg/dL (70-99) Images Images CT chest IMPRESSION: 1. Scattered atherosclerotic plaquing and cervical arterial tortuosity, potentially sequelae of long-standing hypertension. There is 50-69 percent stenosis of the left cervical internal carotid artery near its origin. Otherwise no hemodynamically significant. This stenosis is identified in the cervical great vessels. 2. Incidental thyromegaly with the dominant left thyroid lobe nodule. The enlarged thyroid may explain the patient's right-sided neck swelling. Correlate clinically. Recommend correlation with thyroid ultrasound. Assessment/Plan Assessment/Plan 75 year old female with renal failure, abdominal pain, diarrhea, R thyroid mass. We will try to obtain her outpatient sonogram, if a nodule is present typical evaluation includes a needle biopsy to characterize. If the patient is discharged she may FU with me as outpatient for further thyroid evaluation. Thanks for the consult!! JASON FRENCH MD Aug 01, 2020 12:02
[2020-08-01] MEDS: CALCIUM POLYCARBOPHIL 625 MG TABLET PO SCH (13:01)
[2020-08-01] MEDS: PANTOPRAZOLE 40 MG TABLET.DR. PO SCH (13:02)
--- NOTE | 2020-08-01 13:18 | PDOC2 ---
CONSULT Date of Consult Date of Consult DATE: 08/01/20 TIME: 13:04 Reason for Consult Reason for Consult: ESRD Source Source: Chart review, Patient History of Present Illness Reason for Visit: Pt is a 75 year old AA female who was admitted through the ER with several complaints including right neck swelling and abdominal pain/diarrhea. Per her PCP Dr. Ferro she had a recent outpatient thyroid sonogram due to a right neck mass. The patient is a poor historian but does state that she has noticed a right neck mass. Denies any N/V. No F/C or SOB. States she has some urine output, denies any symptoms of UTI Past Medical History Cardiovascular: CHF, HTN, Hyperlipidemia Pulmonary: Other GI: GERD, Gastritis, Irritable bowel disease Heme/Onc: Anemia NOS Psych: Depression Rheumatologic: No pertinent hx Infectious disease: No pertinent hx Renal/: Chronic renal insuff Endocrine: Diabetes Past Surgical History Past Surgical History: Cholecystectomy, Tonsillectomy, Hysterectomy Family History Family History: Adopted Social History ALCOHOL: none Drugs: None Lives: with Family Domestic Violence: Neg Current Problem List Problem List Problems Medical Problems: (1) ESRD (end stage renal disease) Status: Acute (2) Neck swelling Status: Acute (3) Weakness Status: Acute Current Medications Current Medications Current Medications Iohexol (Omnipaque 350 Mg/ml) 90 ml 1X ONCE IV Last administered on 07/31/20at 12:48; Start 07/31/20 at 12:30; Stop 07/31/20 at 12:31; Status DC Info (CONTRAST GIVEN -- Rx MONITORING) 1 each PRN DAILY PRN MC SEE COMMENTS; Start 07/31/20 at 12:30; Stop 08/02/20 at 12:29 Sodium Chloride 500 ml @ 150 mls/hr 1X ONCE IV Last administered on 07/31/20at 18:23; Start 07/31/20 at 17:15; Stop 07/31/20 at 20:34; Status DC Amlodipine Besylate (Norvasc) 10 mg DAILY PO Last administered on 08/01/20at 10:05; Start 08/01/20 at 09:00 Aspirin (Ecotrin) 81 mg DAILYWBKFT PO Last administered on 08/01/20at 10:03; Start 08/01/20 at 08:00 Atorvastatin Calcium (Lipitor) 40 mg QHS PO Last administered on 07/31/20at 21 :39; Start 07/31/20 at 21:00 Diltiazem HCl (Cardizem 24hr Cd) 240 mg DAILY PO Last administered on 08/01/20at 10:04; Start 08/01/20 at 09:00 Hydralazine HCl (Apresoline) 25 mg TID PO Last administered on 08/01/20at 10:03; Start 07/31/20 at 21:00 Carvedilol (Coreg) 25 mg BIDWMEALS PO Last administered on 08/01/20at 10:02; Start 07/31/20 at 20:00 Darbepoetin Tj (ARANESP for DIALYSIS PTS) 40 mcg WEEKLYHS SQ ; Start 08/06/20 at 21:00 Citalopram Hydrobromide (CeleXA) 10 mg DAILY PO Last administered on 08/01/20at 10:04; Start 08/01/20 at 09:00 Famotidine (Pepcid) 20 mg QMWF PO ; Start 08/01/20 at 16:00; Stop 08/01/20 at 11:13; Status DC Insulin Glargine (Lantus Syringe) 25 unit QHS SQ Last administered on 07/31/20at 21:47; Start 07/31/20 at 21:00; Stop 08/01/20 at 08:03; Status DC Isosorbide Mononitrate (Imdur) 60 mg DAILY PO Last administered on 08/01/20at 10:05; Start 08/01/20 at 09:00 Acetaminophen (Tylenol) 650 mg PRN Q6HRS PRN PO PAIN Last administered on 07/31/20at 21:39; Start 07/31/20 at 18:45 Ondansetron HCl (Zofran) 4 mg PRN Q6HRS PRN IVP NAUSEA/VOMITING; Start 07/31/20 at 18:45 Fentanyl Citrate (Fentanyl 2ml Vial) 25 mcg PRN Q3HRS PRN IV SEVERE PAIN 7-10 Last administered on 07/31/20at 23:22; Start 07/31/20 at 22:15 Dextrose 250 ml @ As Directed STK-MED ONCE IV ; Start 08/01/20 at 07:29; Stop 08/01/20 at 07:29; Status DC Dextrose (Dextrose 50%-Water Syringe) 25 gm STK-MED ONCE IV ; Start 08/01/20 at 07:30; Stop 08/01/20 at 07:30; Status DC Dextrose (Dextrose 50%-Water Syringe) 12.5 gm 1X ONCE IV Last administered on 08/01/20at 07:40; Start 08/01/20 at 07:45; Stop 08/01/20 at 07:47; Status DC Polyethylene Glycol (miraLAX PACKET) 17 gm PRN DAILY PRN PO CONSTIPATION-1ST CHOICE; Start 08/01/20 at 10:30 Bisacodyl (Dulcolax Tab) 5 mg PRN DAILY PRN PO CONSTIPATION-2ND CHOICE; Start 08/01/20 at 10:30 Sodium Chloride 1,000 ml @ 1,000 mls/hr Q1H PRN IV hypotension; Start 08/01/20 at 10:26; Stop 08/01/20 at 16:25 Albumin Human 200 ml @ 200 mls/hr 1X PRN PRN IV Hypotension; Start 08/01/20 at 10:30; Stop 08/01/20 at 16:29 Sodium Chloride 1,000 ml @ 400 mls/hr Q2H30M PRN IV PATENCY; Start 08/01/20 at 10:26; Stop 08/01/20 at 22:25 Info (PHARMACY MONITORING -- do not chart) 1 each PRN DAILY PRN MC SEE COMMENTS; Start 08/01/20 at 10:30 Info (PHARMACY MONITORING -- do not chart) 1 each PRN DAILY PRN MC SEE COMMENTS; Start 08/01/20 at 10:30 Heparin Sodium (Porcine) (Heparin Sodium) 5,000 unit Q12HR SQ ; Start 08/01/20 at 21:00 Pantoprazole Sodium (Protonix) 40 mg DAILYAC PO ; Start 08/01/20 at 12:00 Calcium Polycarbophil (Fibercon) 525 mg QODAY PO ; Start 08/01/20 at 12:00 Active Scripts Active Isosorbide Mononitrate Er (Isosorbide Mononitrate) 60 Mg Tab.er.24h 1 Tab PO DAILY Aspirin Ec (Aspirin) 81 Mg Tablet.dr 81 Mg PO DAILYWBKFT 30 Days Diltiazem 24Hr Cd (Diltiazem HCl) 240 Mg Cap.er.24h 240 Mg PO DAILY 30 Days Coreg (Carvedilol) 25 Mg Tablet 1 Tab PO BID Reported Levemir (Insulin Detemir) 100 Unit/1 Ml Vial 25 Unit SQ DAILY Hydralazine Hcl 25 Mg Tablet 1 Tab PO TID Epogen (Epoetin Tj) 2,000 Unit/1 Ml Vial 12,500 Unit SUBCUT Q2WKS Lexapro (Escitalopram Oxalate) 5 Mg Tablet 1 Tab PO DAILY Amlodipine Besylate 10 Mg Tablet 10 Mg PO DAILY Famotidine 40 Mg Tablet 40 Mg PO HS Lipitor (Atorvastatin Calcium) 40 Mg Tablet 1 Tab PO DAILY Allergies Allergies: Coded Allergies: lisinopril (Verified Allergy, Intermediate, 04/20/19) cough metformin (Verified Allergy, Intermediate, 04/20/19) sertraline (Verified Allergy, Intermediate, 04/20/19) ROS Review of System As per HPI, rest of the ROS is negative Physical Exam Physical Exam GEN: NAD HEEN: OM moist ,R thyroid enlarged, soft, not fixed, NECK: Supple CVS: RRR RESP: CTA, Non labored GI: Soft, NT : No [place] NEUR0- AxO, Grossly normal SKIN- No Rash Vital Signs Vital Signs Date Time Temp Pulse Resp B/P (MAP) Pulse Ox O2 Delivery O2 Flow Rate FiO2 08/01/20 10:57 97.7 66 17 184/59 (100) 96 Nasal Cannula 2.0 97.7 Assessment & Plan ESRD - On HD MWF under Dr. Land's care Dialysis today , discussed treatment plan with [facility]ger s/p Renal Bx in the past - Global Glomerulosclerosis Rt neck mass - GS consulted Abdominal pain/Diarrhea - per primary HTN - Renal doppler in 2016 .No evidence of a hemodynamically significant stenosis. Elevated resistive indices are nonspecific, can be a finding of medical renal disease. Cardiology managing, Anemia- no indication for ANA MARIA DM- per primary Labs Labs Laboratory Tests Test 07/31/20 12:10 07/31/20 12:18 07/31/20 21:04 08/01/20 06:37 White Blood Count 6.0 x10^3/uL (4.0-11.0) 9.0 x10^3/uL (4.0-11.0) Red Blood Count 3.46 x10^6/uL (3.50-5.40) 3.80 x10^6/uL (3.50-5.40) Hemoglobin 10.8 g/dL (12.0-15.5) 11.7 g/dL (12.0-15.5) Hematocrit 31.6 % (36.0-47.0) 34.9 % (36.0-47.0) Mean Corpuscular Volume 91 fL (79-100) 92 fL (79-100) Mean Corpuscular Hemoglobin 31 pg (25-35) 31 pg (25-35) Mean Corpuscular Hemoglobin Concent 34 g/dL (31-37) 34 g/dL (31-37) Red Cell Distribution Width 14.6 % (11.5-14.5) 15.0 % (11.5-14.5) Platelet Count 185 x10^3/uL (140-400) 224 x10^3/uL (140-400) Neutrophils (%) (Auto) 61 % (31-73) 75 % (31-73) Lymphocytes (%) (Auto) 25 % (24-48) 18 % (24-48) Monocytes (%) (Auto) 10 % (0-9) 6 % (0-9) Eosinophils (%) (Auto) 3 % (0-3) 1 % (0-3) Basophils (%) (Auto) 1 % (0-3) 0 % (0-3) Neutrophils # (Auto) 3.7 x10^3/uL (1.8-7.7) 6.8 x10^3/uL (1.8-7.7) Lymphocytes # (Auto) 1.5 x10^3/uL (1.0-4.8) 1.6 x10^3/uL (1.0-4.8) Monocytes # (Auto) 0.6 x10^3/uL (0.0-1.1) 0.5 x10^3/uL (0.0-1.1) Eosinophils # (Auto) 0.2 x10^3/uL (0.0-0.7) 0.1 x10^3/uL (0.0-0.7) Basophils # (Auto) 0.1 x10^3/uL (0.0-0.2) 0.0 x10^3/uL (0.0-0.2) Prothrombin Time 12.7 SEC (11.7-14.0) Prothromb Time International Ratio 1.0 (0.8-1.1) Sodium Level 138 mmol/L (136-145) 143 mmol/L (136-145) Potassium Level 3.7 mmol/L (3.5-5.1) 3.4 mmol/L (3.5-5.1) Chloride Level 100 mmol/L (98-107) 102 mmol/L (98-107) Carbon Dioxide Level 34 mmol/L (21-32) 32 mmol/L (21-32) Anion Gap 4 (6-14) 9 (6-14) Blood Urea Nitrogen 33 mg/dL (7-20) 37 mg/dL (7-20) Creatinine 4.7 mg/dL (0.6-1.0) 5.7 mg/dL (0.6-1.0) Estimated GFR (Cockcroft-Gault) 10.9 8.7 BUN/Creatinine Ratio 7 (6-20) 6 (6-20) Glucose Level 187 mg/dL (70-99) 49 mg/dL (70-99) Calcium Level 9.2 mg/dL (8.5-10.1) 9.3 mg/dL (8.5-10.1) Total Bilirubin 0.5 mg/dL (0.2-1.0) 0.6 mg/dL (0.2-1.0) Aspartate Amino Transf (AST/SGOT) 17 U/L (15-37) 17 U/L (15-37) Alanine Aminotransferase (ALT/SGPT) 15 U/L (14-59) 12 U/L (14-59) Alkaline Phosphatase 108 U/L (46-116) 101 U/L (46-116) Total Protein 6.8 g/dL (6.4-8.2) 6.7 g/dL (6.4-8.2) Albumin 3.5 g/dL (3.4-5.0) 3.5 g/dL (3.4-5.0) Albumin/Globulin Ratio 1.1 (1.0-1.7) 1.1 (1.0-1.7) Lipase 64 U/L (73-393) Thyroid Stimulating Hormone (TSH) 1.092 uIU/mL (0.358-3.74) Free Thyroxine 1.10 ng/dL (0.76-1.46) Urine Collection Type Unknown Urine Color Yellow Urine Clarity Clear Urine pH 7.5 (<5.0-8.0) Urine Specific Mcgregor 1.015 (1.000-1.030) Urine Protein >=300 mg/dL (NEG-TRACE) Urine Glucose (UA) Negative mg/dL (NEG) Urine Ketones (Stick) Negative mg/dL (NEG) Urine Blood Negative (NEG) Urine Nitrite Negative (NEG) Urine Bilirubin Negative (NEG) Urine Urobilinogen Dipstick 1.0 mg/dL (0.2 mg/dL) Urine Leukocyte Esterase Negative (NEG) Urine RBC Rare /HPF (0-2) Urine WBC 1-4 /HPF (0-4) Urine Squamous Epithelial Cells Many /LPF Urine Bacteria Few /HPF (0-FEW) Glucose (Fingerstick) 169 mg/dL (70-99) Test 08/01/20 07:14 08/01/20 07:28 08/01/20 08:19 Glucose (Fingerstick) 44 mg/dL (70-99) 58 mg/dL (70-99) 140 mg/dL (70-99) Laboratory Tests Test 07/31/20 21:04 08/01/20 06:37 08/01/20 07:14 08/01/20 07:28 Glucose (Fingerstick) 169 mg/dL (70-99) 44 mg/dL (70-99) 58 mg/dL (70-99) White Blood Count 9.0 x10^3/uL (4.0-11.0) Red Blood Count 3.80 x10^6/uL (3.50-5.40) Hemoglobin 11.7 g/dL (12.0-15.5) Hematocrit 34.9 % (36.0-47.0) Mean Corpuscular Volume 92 fL (79-100) Mean Corpuscular Hemoglobin 31 pg (25-35) Mean Corpuscular Hemoglobin Concent 34 g/dL (31-37) Red Cell Distribution Width 15.0 % (11.5-14.5) Platelet Count 224 x10^3/uL (140-400) Neutrophils (%) (Auto) 75 % (31-73) Lymphocytes (%) (Auto) 18 % (24-48) Monocytes (%) (Auto) 6 % (0-9) Eosinophils (%) (Auto) 1 % (0-3) Basophils (%) (Auto) 0 % (0-3) Neutrophils # (Auto) 6.8 x10^3/uL (1.8-7.7) Lymphocytes # (Auto) 1.6 x10^3/uL (1.0-4.8) Monocytes # (Auto) 0.5 x10^3/uL (0.0-1.1) Eosinophils # (Auto) 0.1 x10^3/uL (0.0-0.7) Basophils # (Auto) 0.0 x10^3/uL (0.0-0.2) Sodium Level 143 mmol/L (136-145) Potassium Level 3.4 mmol/L (3.5-5.1) Chloride Level 102 mmol/L (98-107) Carbon Dioxide Level 32 mmol/L (21-32) Anion Gap 9 (6-14) Blood Urea Nitrogen 37 mg/dL (7-20) Creatinine 5.7 mg/dL (0.6-1.0) Estimated GFR (Cockcroft-Gault) 8.7 BUN/Creatinine Ratio 6 (6-20) Glucose Level 49 mg/dL (70-99) Calcium Level 9.3 mg/dL (8.5-10.1) Total Bilirubin 0.6 mg/dL (0.2-1.0) Aspartate Amino Transf (AST/SGOT) 17 U/L (15-37) Alanine Aminotransferase (ALT/SGPT) 12 U/L (14-59) Alkaline Phosphatase 101 U/L (46-116) Total Protein 6.7 g/dL (6.4-8.2) Albumin 3.5 g/dL (3.4-5.0) Albumin/Globulin Ratio 1.1 (1.0-1.7) Test 08/01/20 08:19 Glucose (Fingerstick) 140 mg/dL (70-99) Review All relevant outside records, renal labs, imaging studies, telemetry/EKG's were reviewed. Images Images CT Angiogram of the Neck INDICATION: Right sided neck swelling. IV CONTRAST: Administered COMPARISON: None FINDINGS: AORTA: 3 vessel configuration of arch. No dissection or acute aortic injury. No hemodynamically significant great vessel origin stenosis. RIGHT CAROTID: Right common carotid artery is widely patent. There is a retropharyngeal course to the distal common carotid artery with similar course of the proximal right internal cervical carotid artery. Calcified plaque is present at the right carotid bulb. No flow-limiting stenosis is apparent. LEFT CAROTID: Left common carotid artery is tortuous but widely patent. Also takes a slightly retropharyngeal course, continued by the proximal left cervical internal carotid artery. There is dense, near circumferential plaque at the carotid bulb and proximal right internal carotid artery that results in at least 50-69 percent luminal stenosis. VERTEBRAL ARTERIES: Codominant No evidence of dissection or flow limiting stenosis. Subclavian arteries (SCAs) are visualized and patent. SOFT TISSUES: Soft tissues show enlargement of the bilateral thyroid lobes with a dominant inferior pole left thyroid lobe nodule measuring 3 cm, recommended for more detailed evaluation by thyroid ultrasound. Lung apices are clear. Patient has a maxillary dental prosthesis. Where applicable, evaluation of ICA stenosis was performed using NASCET criteria, where the site of greatest stenosis is compared to the diameter of the ICA distal to the carotid bulb. IMPRESSION: 1. Scattered atherosclerotic plaquing and cervical arterial tortuosity, potentially sequelae of long-standing hypertension. There is 50-69 percent stenosis of the left cervical internal carotid artery near its origin. Otherwise no hemodynamically significant. This stenosis is identified in the cervical great vessels. 2. Incidental thyromegaly with the dominant left thyroid lobe nodule. The enlarged thyroid may explain the patient's right-sided neck swelling. Correlate clinically. Recommend correlation with thyroid ultrasound. EXAM: CT Chest angiogram with IV contrast INDICATION: Reason: Neck swelling IV CONTRAST: Administered FINDINGS: CARDIOVASCULAR: Mild cardiomegaly. Coronary calcifications. No pericardial effusion. Normal caliber thoracic aorta with scattered calcifications but no aneurysm and no flow-limiting stenosis or evidence of dissection. Conventional arch anatomy. Visualized pulmonary arteries are unremarkable as well. There is some respiratory motion artifact that degrades detail. MEDIASTINUM & WILL: No adenopathy or masses. LUNGS: Scattered minimal atelectatic changes in the bilateral lower lobes. No pulmonary infiltrate, nodule, or other focal abnormality is appreciated. PLEURAL SPACE: No pleural effusions or pneumothorax. OSSEOUS & SOFT TISSUE: Unremarkable ABDOMEN: The visualized portions of the upper abdomen show a 6 mm round low-density lesion in the right hepatic lobe as well as post cholecystectomy surgical changes. Partially imaged nodule 1.9 cm in the vicinity of the superior pole left kidney is also evident.. IMPRESSION: 1. No evidence of a mediastinal mass causing SVC syndrome. 2. There is a probable multinodular thyroid goiter, recommended for ultrasound evaluation on an elective basis. It probably explains the patient's neck swelling. 3. There is cardiomegaly and atherosclerosis including coronary artery disease. Recommend clinical follow-up. EXAM: CT Abdomen and Pelvis with IV contrast INDICATION: Reason: abd pain IV CONTRAST: Administered ORAL CONTRAST: Not administered COMPARISON: CT angiogram chest of the same day, and abdomen and pelvis CT without IV contrast of 10/31/2016.. F LOWER CHEST: Cardiomegaly. Possible trace right pleural effusion. LIVER: 4 mm low-density lesion in the right hepatic lobe is statistically likely a cyst but not completely characterized on this single phase exam. BILIARY SYSTEM: Gallbladder is surgically absent. There is postcholecystectomy biliary distention with the common bile duct in the pancreatic head measuring 11 mm in diameter. PANCREAS: Unremarkable SPLEEN: Unremarkable ADRENALS: Unremarkable KIDNEYS & URETERS: Left kidney shows a superior pole 2 cm nodule measuring 50 HU that is not clearly cystic. It is enlarged slightly from 2016 where it previously measured 1.3 cm wide (and measured 12.5 HU density) and requires formal renal mass protocol imaging given increase in size and soft tissue density. Otherwise the left kidney and ureter are unremarkable. The right kidney shows interval increase in size of the previously subtle 3 cm slightly hyperdense lesion which now measures 6.7 cm in diameter and has Hounsfield units measuring 33, consistent with a hemorrhagic cyst or solid mass. Due to its increase in size and heterogeneous increased internal density, this requires additional imaging and is recommended for renal mass protocol abdominal MRI or CT. An initial renal ultrasound could be pursued in initial characterization. Additional smaller lesions in the right renal cortex are seen, too small to characterize. The right ureter is unremarkable. BLADDER: Decompressed. Mild diffuse wall thickening is nonspecific and could reflect cystitis in the appropriate clinical context. The bladder neck is funneled in the pelvic floor and this could reflect some amount of pelvic floor relaxation. REPRODUCTIVE ORGANS: Hysterectomy. Ovaries are unremarkable. GASTROINTESTINAL: Scattered colonic diverticuli. No findings suspicious for acute diverticulitis. The appendix is normal. MESENTERY/PERITONEUM/RETROPERITONEUM: Trace ascites. No free air. No discrete fluid collection. VASCULAR: Scattered arterial calcifications. No aneurysm. No findings suspicious for flow-limiting stenosis. No large vessel occlusion. LYMPH NODES: No adenopathy OSSEOUS & SOFT TISSUES: Unremarkable IMPRESSION: Although no specific cause for abdominal pain is identified, patient does have interval change in dominant lesions in both kidneys that are recommended for renal mass protocol imaging follow-up to exclude enlarging hemorrhagic cysts or solid renal neoplasms. No other acute findings in the abdomen or pelvis are identified on contrast enhanced CT. OBEY FISH MD Aug 01, 2020 13:18
--- NOTE | 2020-08-01 13:20 | HP ---
ADMIT DATE: HISTORY OF PRESENT ILLNESS: This is a 75-year-old female who has end-stage renal disease, on hemodialysis with multiple medical problems including diastolic heart failure, diverticulosis, hyperlipidemia, hypertension, gastroesophageal reflux disease, who was recently noted to have swelling of the right side of the neck and had a thyroid sonogram that showed bilateral thyroid nodules, some very large. Because of her being on dialysis, consent was about some vascular issues on the right side of the neck, so workup was in progress; however, her dialysis access was on the left side. Decision was made to order CT of the neck and chest with contrast after discussion with Dr. Land; however, while this workup was going on yesterday, the patient started having significant abdominal pain and nausea all day and was not able to eat. She has had some nausea the day before and yesterday she also had constipation. The patient states that she has been having more nausea recently and because of the abdominal pain and nausea, she came to the Emergency Room. In the Emergency Room, the patient was evaluated. IV fluids were given, but could not be given a lot because she was on dialysis. The patient was started on clear liquids. WBC count was 6, hemoglobin 10.8. Sodium 138, potassium 3.7, BUN 33, creatinine 4.7, lipase 64. TSH 1.092, free T4 1.10. Urinalysis was negative. WBC count was [address] scan of abdomen and pelvis and CT angiogram of the neck showed scattered atherosclerotic plaquing and cervical arterial tortuosity, 50-69% stenosis on the left cervical internal carotid artery, thyromegaly with a dominant left thyroid nodule; however, on the sonogram, she also had a large right side nodule, no masses noted in the mediastinum, has a multinodular thyroid goiter, cardiomegaly, atherosclerotic coronary artery disease. Abdominal CT did not show any acute findings. Because of the persistent abdominal pain, nausea and inability to eat and increased weakness, the patient was admitted for further evaluation and management. REVIEW OF SYSTEMS: On systems review at present time, the patient continues to have abdominal pain. Last night I had to give her IV fentanyl. She is less nauseous this morning. Denies any fever, chills, dysuria. Denies any dyspnea or neck pain, or dysphagia. Denies any heartburn. Other systems reviewed and are negative. PAST MEDICAL HISTORY: The patient has end-stage renal disease, on hemodialysis Thursday, Thursday and Thursday, has history of hypertension, hyperlipidemia, anemia, depression, diastolic congestive heart failure, complex renal cysts, CKD 5, diabetes mellitus type 2, hyperlipidemia, allergic rhinitis, IBS with diarrhea, depression, gastritis, diverticulosis, hiatal hernia, hemorrhoids, severe obstructive sleep apnea with CPAP and mild pulmonary hypertension. PAST SURGICAL HISTORY: Includes cholecystectomy, tonsillectomy and hysterectomy. FAMILY HISTORY: Reviewed and noncontributory. SOCIAL HISTORY: No history of smoking, alcoholism or drug abuse. ALLERGIES: THE PATIENT IS ALLERGIC TO LISINOPRIL, METFORMIN AND SERTRALINE. MEDICATIONS: Reviewed and reconciled. PHYSICAL EXAMINATION: VITAL SIGNS: Temperature 97.7, pulse 63 per minute, respirations 18 per minute, blood pressure 174/54 mmHg. GENERAL: The patient is an elderly -[place] female who is alert, oriented x 3 and weak and chronically ill and not in acute distress. EYES: Pupils reacting to light. Conjunctivae pale. Sclerae muddy. HENT: Unremarkable except for thyromegaly and right-sided soft tissue neck swelling, no tenderness, redness or drainage noted. LUNGS: Decreased breath sounds at bases. CARDIOVASCULAR: S1, S2 regular. ABDOMEN: Soft, nontender, no guarding, no rigidity. Bowel sounds present. EXTREMITIES: No edema. CENTRAL NERVOUS SYSTEM: Alert and oriented, moves all extremities, some generalized weakness. The patient is getting weaker. LABORATORY FINDINGS: As noted earlier. IMPRESSION: 1. Acute abdominal pain. 2. Persistent nausea. 3. End-stage renal disease, on hemodialysis. 4. Neck swelling, likely due to thyromegaly and thyroid nodules. 5. Hypertension with chronic kidney disease 3. 6. Diabetes mellitus type 2, on Levemir. 7. Hyperlipidemia. 8. Diastolic congestive heart failure. 9. Arthritis. 10. Complex renal cyst. 11. Depression. 12. Diverticulosis. 13. Hiatal hernia. 14. Hemorrhoids. 15. Severe obstructive sleep apnea with CPAP and mild pulmonary hypertension. PLAN: Restart CPAP. Start PT, OT. Consult Dr. Land for hemodialysis and end-stage renal disease, consult Dr. Ramos for GI evaluation and management. Consult Dr. Richardson for a thyroid mass and thyroid nodules. Keep her on clear liquid diet, hemodialysis this morning. Continue IV fentanyl and Zofran as needed. Start PT, OT. Prognosis of this patient is very poor due to her multiple medical problems. For details, please refer to the orders. Unable to give more IV fluids because of the end-stage renal disease. For details, please refer to the orders. DRE ECE MD DR: ADRIENNE/leslie JOB#: [id number] / [id number] LILIBETH
[2020-08-01] MEDS ORDERED: FAMOTIDINE 20 MG TABLET. PO SCH (16:00)
[2020-08-01 19:00] VITALS: BP 204/62
[2020-08-01 19:30] VITALS: BP 176/71
[2020-08-01] MEDS: ATORVASTATIN CALCIUM 40 MG TABLET. PO SCH (20:25)
[2020-08-01] MEDS: HEPARIN for SUB-Q USE 5,000 UNIT/ML VIAL. SQ SCH (20:31)
[2020-08-01] MEDS: fentaNYL PF VIAL 100 MCG/2 ML VIAL IV PRN (22:17)
[2020-08-01 23:00] VITALS: BP 188/57
[2020-08-02 03:00] VITALS: BP 183/51
[2020-08-02] MEDS ORDERED: LABETALOL 20 MG/4 ML DISP.SYRIN. IVP ONE (05:15)
[2020-08-02] MEDS: PANTOPRAZOLE 40 MG TABLET.DR. PO SCH (05:18)
[2020-08-02 07:00] VITALS: BP 158/47
[2020-08-02 07:06] LABS: BASO % 1 % (0-3); EOS # 0.2 x10^3/uL (0.0-0.7); EOS % 3 % (0-3); HEMATOCRIT 31.3 % (36.0-47.0); HEMOGLOBIN 10.5 g/dL (12.0-15.5); LYMPH # 1.4 x10^3/uL (1.0-4.8); LYMPH % 25 % (24-48); MEAN CORPUSCULAR HEMOGLOBIN 31 pg (25-35); MEAN CORPUSCULAR HGB CONC 34 g/dL (31-37); MEAN CORPUSCULAR VOLUME 91 fL (79-100); MONO # 0.5 x10^3/uL (0.0-1.1); MONO % 9 % (0-9); NEUT # 3.6 x10^3/uL (1.8-7.7); NEUT % 63 % (31-73); PLATELET COUNT 178 x10^3/uL (140-400); RED BLOOD COUNT 3.44 x10^6/uL (3.50-5.40); RED CELL DISTRIBUTION WIDTH 15.1 % (11.5-14.5); WHITE BLOOD COUNT 5.8 x10^3/uL (4.0-11.0)
[2020-08-02 07:36] LABS: CALCIUM 9.1 mg/dL (8.5-10.1); CREATININE 3.7 mg/dL (0.6-1.0); GFR 14.4; POTASSIUM 3.7 mmol/L (3.5-5.1)
[2020-08-02] MEDS: ASPIRIN ENTERIC COATED 81 MG TABLET.DR. PO SCH (08:30)
[2020-08-02] MEDS: amLODIPine BESYLATE 10 MG TABLET PO SCH (08:30)
[2020-08-02] MEDS: CARVEDILOL 12.5 MG TABLET. PO SCH ×2 (08:31→17:12)
[2020-08-02] MEDS: ISOSORBIDE MONONITRATE ER 30 MG TAB.ER.24H PO SCH (08:32)
[2020-08-02] MEDS: CITALOPRAM 10 MG TABLET. PO SCH (08:32)
[2020-08-02] MEDS: hydrALAZINE 25 MG TABLET PO SCH ×3 (08:32→21:12)
[2020-08-02] MEDS: HEPARIN for SUB-Q USE 5,000 UNIT/ML VIAL. SQ SCH ×2 (08:40→21:16)
--- NOTE | 2020-08-02 09:02 | PDOC ---
SURGICAL PROGRESS NOTE DATE: 08/02/20 TIME: 09:00 Subjective some improvement in pain taking clears Vital Signs Vital Signs Date Time Temp Pulse Resp B/P (MAP) Pulse Ox O2 Delivery O2 Flow Rate FiO2 08/02/20 08:32 66 158/47 08/02/20 07:00 98.4 18 95 Room Air 98.4 08/01/20 10:57 2.0 I&O Intake and Output 08/02/20 07:00 Intake Total 480 ml Balance 480 ml Intake Oral 480 ml # Voids 4 # Bowel Movements 1 General: Alert, Cooperative HEENT: Other (neck mass ) Abdomen: Soft Labs Laboratory Tests Test 07/31/20 12:10 07/31/20 12:18 07/31/20 21:04 08/01/20 06:37 White Blood Count 6.0 x10^3/uL (4.0-11.0) 9.0 x10^3/uL (4.0-11.0) Red Blood Count 3.46 x10^6/uL (3.50-5.40) 3.80 x10^6/uL (3.50-5.40) Hemoglobin 10.8 g/dL (12.0-15.5) 11.7 g/dL (12.0-15.5) Hematocrit 31.6 % (36.0-47.0) 34.9 % (36.0-47.0) Mean Corpuscular Volume 91 fL (79-100) 92 fL (79-100) Mean Corpuscular Hemoglobin 31 pg (25-35) 31 pg (25-35) Mean Corpuscular Hemoglobin Concent 34 g/dL (31-37) 34 g/dL (31-37) Red Cell Distribution Width 14.6 % (11.5-14.5) 15.0 % (11.5-14.5) Platelet Count 185 x10^3/uL (140-400) 224 x10^3/uL (140-400) Neutrophils (%) (Auto) 61 % (31-73) 75 % (31-73) Lymphocytes (%) (Auto) 25 % (24-48) 18 % (24-48) Monocytes (%) (Auto) 10 % (0-9) 6 % (0-9) Eosinophils (%) (Auto) 3 % (0-3) 1 % (0-3) Basophils (%) (Auto) 1 % (0-3) 0 % (0-3) Neutrophils # (Auto) 3.7 x10^3/uL (1.8-7.7) 6.8 x10^3/uL (1.8-7.7) Lymphocytes # (Auto) 1.5 x10^3/uL (1.0-4.8) 1.6 x10^3/uL (1.0-4.8) Monocytes # (Auto) 0.6 x10^3/uL (0.0-1.1) 0.5 x10^3/uL (0.0-1.1) Eosinophils # (Auto) 0.2 x10^3/uL (0.0-0.7) 0.1 x10^3/uL (0.0-0.7) Basophils # (Auto) 0.1 x10^3/uL (0.0-0.2) 0.0 x10^3/uL (0.0-0.2) Prothrombin Time 12.7 SEC (11.7-14.0) Prothromb Time International Ratio 1.0 (0.8-1.1) Sodium Level 138 mmol/L (136-145) 143 mmol/L (136-145) Potassium Level 3.7 mmol/L (3.5-5.1) 3.4 mmol/L (3.5-5.1) Chloride Level 100 mmol/L (98-107) 102 mmol/L (98-107) Carbon Dioxide Level 34 mmol/L (21-32) 32 mmol/L (21-32) Anion Gap 4 (6-14) 9 (6-14) Blood Urea Nitrogen 33 mg/dL (7-20) 37 mg/dL (7-20) Creatinine 4.7 mg/dL (0.6-1.0) 5.7 mg/dL (0.6-1.0) Estimated GFR (Cockcroft-Gault) 10.9 8.7 BUN/Creatinine Ratio 7 (6-20) 6 (6-20) Glucose Level 187 mg/dL (70-99) 49 mg/dL (70-99) Calcium Level 9.2 mg/dL (8.5-10.1) 9.3 mg/dL (8.5-10.1) Total Bilirubin 0.5 mg/dL (0.2-1.0) 0.6 mg/dL (0.2-1.0) Aspartate Amino Transf (AST/SGOT) 17 U/L (15-37) 17 U/L (15-37) Alanine Aminotransferase (ALT/SGPT) 15 U/L (14-59) 12 U/L (14-59) Alkaline Phosphatase 108 U/L (46-116) 101 U/L (46-116) Total Protein 6.8 g/dL (6.4-8.2) 6.7 g/dL (6.4-8.2) Albumin 3.5 g/dL (3.4-5.0) 3.5 g/dL (3.4-5.0) Albumin/Globulin Ratio 1.1 (1.0-1.7) 1.1 (1.0-1.7) Lipase 64 U/L (73-393) Thyroid Stimulating Hormone (TSH) 1.092 uIU/mL (0.358-3.74) Free Thyroxine 1.10 ng/dL (0.76-1.46) Urine Collection Type Unknown Urine Color Yellow Urine Clarity Clear Urine pH 7.5 (<5.0-8.0) Urine Specific [place] 1.015 (1.000-1.030) Urine Protein >=300 mg/dL (NEG-TRACE) Urine Glucose (UA) Negative mg/dL (NEG) Urine Ketones (Stick) Negative mg/dL (NEG) Urine Blood Negative (NEG) Urine Nitrite Negative (NEG) Urine Bilirubin Negative (NEG) Urine Urobilinogen Dipstick 1.0 mg/dL (0.2 mg/dL) Urine Leukocyte Esterase Negative (NEG) Urine RBC Rare /HPF (0-2) Urine WBC 1-4 /HPF (0-4) Urine Squamous Epithelial Cells Many /LPF Urine Bacteria Few /HPF (0-FEW) Glucose (Fingerstick) 169 mg/dL (70-99) Test 08/01/20 07:14 08/01/20 07:28 08/01/20 08:19 08/02/20 06:19 Glucose (Fingerstick) 44 mg/dL (70-99) 58 mg/dL (70-99) 140 mg/dL (70-99) White Blood Count 5.8 x10^3/uL (4.0-11.0) Red Blood Count 3.44 x10^6/uL (3.50-5.40) Hemoglobin 10.5 g/dL (12.0-15.5) Hematocrit 31.3 % (36.0-47.0) Mean Corpuscular Volume 91 fL (79-100) Mean Corpuscular Hemoglobin 31 pg (25-35) Mean Corpuscular Hemoglobin Concent 34 g/dL (31-37) Red Cell Distribution Width 15.1 % (11.5-14.5) Platelet Count 178 x10^3/uL (140-400) Neutrophils (%) (Auto) 63 % (31-73) Lymphocytes (%) (Auto) 25 % (24-48) Monocytes (%) (Auto) 9 % (0-9) Eosinophils (%) (Auto) 3 % (0-3) Basophils (%) (Auto) 1 % (0-3) Neutrophils # (Auto) 3.6 x10^3/uL (1.8-7.7) Lymphocytes # (Auto) 1.4 x10^3/uL (1.0-4.8) Monocytes # (Auto) 0.5 x10^3/uL (0.0-1.1) Eosinophils # (Auto) 0.2 x10^3/uL (0.0-0.7) Basophils # (Auto) 0.0 x10^3/uL (0.0-0.2) Sodium Level 139 mmol/L (136-145) Potassium Level 3.7 mmol/L (3.5-5.1) Chloride Level 101 mmol/L (98-107) Carbon Dioxide Level 31 mmol/L (21-32) Anion Gap 7 (6-14) Blood Urea Nitrogen 13 mg/dL (7-20) Creatinine 3.7 mg/dL (0.6-1.0) Estimated GFR (Cockcroft-Gault) 14.4 Glucose Level 98 mg/dL (70-99) Calcium Level 9.1 mg/dL (8.5-10.1) Laboratory Tests Test 08/02/20 06:19 White Blood Count 5.8 x10^3/uL (4.0-11.0) Red Blood Count 3.44 x10^6/uL (3.50-5.40) Hemoglobin 10.5 g/dL (12.0-15.5) Hematocrit 31.3 % (36.0-47.0) Mean Corpuscular Volume 91 fL (79-100) Mean Corpuscular Hemoglobin 31 pg (25-35) Mean Corpuscular Hemoglobin Concent 34 g/dL (31-37) Red Cell Distribution Width 15.1 % (11.5-14.5) Platelet Count 178 x10^3/uL (140-400) Neutrophils (%) (Auto) 63 % (31-73) Lymphocytes (%) (Auto) 25 % (24-48) Monocytes (%) (Auto) 9 % (0-9) Eosinophils (%) (Auto) 3 % (0-3) Basophils (%) (Auto) 1 % (0-3) Neutrophils # (Auto) 3.6 x10^3/uL (1.8-7.7) Lymphocytes # (Auto) 1.4 x10^3/uL (1.0-4.8) Monocytes # (Auto) 0.5 x10^3/uL (0.0-1.1) Eosinophils # (Auto) 0.2 x10^3/uL (0.0-0.7) Basophils # (Auto) 0.0 x10^3/uL (0.0-0.2) Sodium Level 139 mmol/L (136-145) Potassium Level 3.7 mmol/L (3.5-5.1) Chloride Level 101 mmol/L (98-107) Carbon Dioxide Level 31 mmol/L (21-32) Anion Gap 7 (6-14) Blood Urea Nitrogen 13 mg/dL (7-20) Creatinine 3.7 mg/dL (0.6-1.0) Estimated GFR (Cockcroft-Gault) 14.4 Glucose Level 98 mg/dL (70-99) Calcium Level 9.1 mg/dL (8.5-10.1) Problem List Problems Medical Problems: (1) ESRD (end stage renal disease) Status: Acute (2) Neck swelling Status: Acute (3) Weakness Status: Acute Assessment/Plan d/w nursing--attempt to obtain US report--if not, may need repeat sono--can FU as outpt if discharges Justicifation of Admission Dx: Justifications for Admission: Justification of Admission Dx: Yes EVA [employer] Aug 02, 2020 09:02
[2020-08-02] MEDS ORDERED: PANT40TA77 PO (09:56)
[2020-08-02] MEDS ORDERED: ONDA-84 PO (09:56)
--- NOTE | 2020-08-02 10:17 | PDOC ---
IM PROGRESS NOTES- Subjective Subjective No complaints of pain or dyspnea. Abdominal pain and nausea are improving. Patient had an episode of hypoglycemia this morning Objective Vitals/I&O Vital Signs Date Time Temp Pulse Resp B/P (MAP) Pulse Ox O2 Delivery O2 Flow Rate FiO2 08/02/20 08:32 66 158/47 08/02/20 07:00 98.4 18 95 Room Air 98.4 08/01/20 10:57 2.0 I & O 08/01/20 08/01/20 08/02/20 15:00 23:00 07:00 Intake Total 480 ml Balance 480 ml Physical Exam Physical Exam General appearance - alert, weak, and in no distress and oriented to person, place, and time Mental Status - alert, oriented to person, place, and time, affect appropriate to mood Head - normal Swelling right side of the neck Chest -decreased breath sounds at base Heart - S1 and S2 normal Abdomen - soft, nontender, obese, bowel sounds present Neurological - alert and oriented Extremities - no pedal edema Skin - warm and dry Labs Laboratory Tests Test 08/02/20 06:19 White Blood Count 5.8 x10^3/uL (4.0-11.0) Red Blood Count 3.44 x10^6/uL (3.50-5.40) L Hemoglobin 10.5 g/dL (12.0-15.5) L Hematocrit 31.3 % (36.0-47.0) L Mean Corpuscular Volume 91 fL (79-100) Mean Corpuscular Hemoglobin 31 pg (25-35) Mean Corpuscular Hemoglobin Concent 34 g/dL (31-37) Red Cell Distribution Width 15.1 % (11.5-14.5) H Platelet Count 178 x10^3/uL (140-400) Neutrophils (%) (Auto) 63 % (31-73) Lymphocytes (%) (Auto) 25 % (24-48) Monocytes (%) (Auto) 9 % (0-9) Eosinophils (%) (Auto) 3 % (0-3) Basophils (%) (Auto) 1 % (0-3) Neutrophils # (Auto) 3.6 x10^3/uL (1.8-7.7) Lymphocytes # (Auto) 1.4 x10^3/uL (1.0-4.8) Monocytes # (Auto) 0.5 x10^3/uL (0.0-1.1) Eosinophils # (Auto) 0.2 x10^3/uL (0.0-0.7) Basophils # (Auto) 0.0 x10^3/uL (0.0-0.2) Sodium Level 139 mmol/L (136-145) Potassium Level 3.7 mmol/L (3.5-5.1) Chloride Level 101 mmol/L (98-107) Carbon Dioxide Level 31 mmol/L (21-32) Anion Gap 7 (6-14) Blood Urea Nitrogen 13 mg/dL (7-20) # Creatinine 3.7 mg/dL (0.6-1.0) H Estimated GFR (Cockcroft-Gault) 14.4 Glucose Level 98 mg/dL (70-99) Calcium Level 9.1 mg/dL (8.5-10.1) Laboratory Tests 08/02/20 06:19 Laboratory Tests 08/02/20 06:19 Meds Current Medications Medications (Trade) Dose Ordered Sig/Elfego Route PRN Reason Start Time Stop Time Status Last Admin Dose Admin Heparin Sodium (Porcine) (Heparin Sodium) 5,000 unit Q12HR SQ 08/01/20 21:00 08/02/20 08:40 Pantoprazole Sodium (Protonix) 40 mg DAILYAC PO 08/01/20 12:00 08/02/20 05:18 Calcium Polycarbophil (Fibercon) 525 mg QODAY PO 08/01/20 12:00 08/01/20 13:01 Labetalol HCl (Normodyne Iv Push) 10 mg 1X ONCE IVP 08/02/20 05:15 08/02/20 05:16 DC 08/02/20 05:23 Assessment Assessment 1. Acute abdominal pain. 2. Persistent nausea. 3. End-stage renal disease, on hemodialysis. 4. Neck swelling, likely due to thyromegaly and thyroid nodules. 5. Hypertension with chronic kidney disease 3. 6. Diabetes mellitus type 2 7. Hyperlipidemia. 8. Diastolic congestive heart failure. 9. Arthritis. 10. Complex renal cyst. 11. Depression. 12. Diverticulosis. 13. Hiatal hernia. 14. Hemorrhoids. 15. Severe obstructive sleep apnea with CPAP and mild pulmonary hypertension. PLAN: Restart CPAP. Start PT, OT. Consult Dr. Land for hemodialysis and end-stage renal disease, consult Dr. Ramos for GI evaluation and management. Consult Dr. Richardson for a thyroid mass and thyroid nodules. Keep her on clear liquid diet, hemodialysis this morning. Continue IV fentanyl and Zofran as needed. Start PT, OT. Prognosis of this patient is very poor due to her multiple medical problems. For details, please refer to the orders. Unable to give more IV fluids because of the end-stage renal disease. For details, please refer to the orders. Acute abdominal pain-improving. Famotidine was stopped and patient was started on Protonix. Advance diet slowly Right-sided neck swelling-this is due to enlarged thyroid. Will need thyroid biopsy. Diabetes mellitus with hypoglycemia blood sugar was 44 and 58 this morning and then it went up to 140. Patient did not receive any insulin yesterday. She states that she takes Levemir 20 units subcu daily at home. End-stage renal disease-hemodialysis Thursday Physical deconditioning and osteoarthritis-PT/OT Plan Plan For more details regarding further plans, please refer to the orders. Justifications for Admission Other Justification DRE CEE MD Aug 02, 2020 10:17
[2020-08-02 11:00] VITALS: BP 143/50
--- NOTE | 2020-08-02 11:02 | PDOC ---
DATE OF SERVICE DATE: 08/02/20 TIME: 10:59 SUBJECTIVE ROS stable, No complaints OBJECTIVE Vital Signs Vital Signs Date Time Temp Pulse Resp B/P (MAP) Pulse Ox O2 Delivery O2 Flow Rate FiO2 08/02/20 08:32 66 158/47 08/02/20 07:00 98.4 18 95 Room Air 98.4 08/01/20 10:57 2.0 I & 0 Intake and Output 08/02/20 07:00 Intake Total 480 ml Balance 480 ml Intake Oral 480 ml # Voids 4 # Bowel Movements 1 PHYSICAL EXAM Physical Exam GEN: NAD HEEN: OM moist ,R thyroid enlarged, soft, not fixed, NECK: Supple CVS: RRR RESP: CTA, Non labored GI: Soft, NT : No [place] NEUR0- AxO, Grossly normal SKIN- No Rash DIAGNOSIS/ASSESSMENT Assessment & Plan ESRD - On HD MWF under Dr. Land's care No indication for HD today , if Dced- HD at her OP unit s/p Renal Bx in the past - Global Glomerulosclerosis Rt neck mass - GS consulted Abdominal pain/Diarrhea - per primary HTN - Renal doppler in 2015 .No evidence of a hemodynamically significant stenosis. Elevated resistive indices are nonspecific, can be a finding of medical renal disease. Cardiology managing, Anemia- no indication for ANA AMRIA DM- per primary DC per Primary COMMENT/RELEVANT DATA Meds Current Medications Medications (Trade) Dose Ordered Sig/Elfego Start Time Stop Time Status Last Admin Dose Admin Acetaminophen (Tylenol) 650 mg PRN Q6HRS PRN 07/31/20 18:45 07/31/20 21:39 650 MG Albumin Human 200 ml @ 200 mls/hr 1X PRN PRN 08/01/20 10:30 08/01/20 16:29 DC Amlodipine Besylate (Norvasc) 10 mg DAILY 08/01/20 09:00 08/02/20 08:30 10 MG Aspirin (Ecotrin) 81 mg [id number] 08/01/20 08:00 08/02/20 08:30 81 MG Atorvastatin Calcium (Lipitor) 40 mg QHS 07/31/20 21:00 08/01/20 20:25 40 MG Bisacodyl (Dulcolax Tab) 5 mg PRN DAILY PRN 08/01/20 10:30 Calcium Polycarbophil (Fibercon) 525 mg QODAY 08/01/20 12:00 08/01/20 13:01 525 MG Carvedilol (Coreg) 25 mg BIDWMEALS 07/31/20 20:00 08/02/20 08:31 25 MG Citalopram Hydrobromide (CeleXA) 10 mg DAILY 08/01/20 09:00 08/02/20 08:32 10 MG Darbepoetin Tj (ARANESP for DIALYSIS PTS) 40 mcg WEEKLYHS 08/06/20 21:00 Dextrose (Dextrose 50%-Water Syringe) 12.5 gm 1X ONCE 08/01/20 07:45 08/01/20 07:47 DC 08/01/20 07:40 12.5 GM Diltiazem HCl (Cardizem 24hr Cd) 240 mg DAILY 08/01/20 09:00 08/02/20 08:31 240 MG Famotidine (Pepcid) 20 mg QMWF 08/01/20 16:00 08/01/20 11:13 DC Fentanyl Citrate (Fentanyl 2ml Vial) 25 mcg PRN Q3HRS PRN 07/31/20 22:15 08/01/20 22:17 25 MCG Heparin Sodium (Porcine) (Heparin Sodium) 5,000 unit Q12HR 08/01/20 21:00 08/02/20 08:40 5,000 UNIT Hydralazine HCl (Apresoline) 25 mg TID 07/31/20 21:00 08/02/20 08:32 25 MG Info (CONTRAST GIVEN -- Rx MONITORING) 1 each PRN DAILY PRN 07/31/20 12:30 08/02/20 12:29 Info (PHARMACY MONITORING -- do not chart) 1 each PRN DAILY PRN 08/01/20 10:30 Insulin Glargine (Lantus Syringe) 25 unit QHS 07/31/20 21:00 08/01/20 08:03 DC 07/31/20 21:47 25 UNIT Iohexol (Omnipaque 350 Mg/ml) 90 ml 1X ONCE 07/31/20 12:30 07/31/20 12:31 DC 07/31/20 12:48 90 ML Isosorbide Mononitrate (Imdur) 60 mg DAILY 08/01/20 09:00 08/02/20 08:32 60 MG Labetalol HCl (Normodyne Iv Push) 10 mg 1X ONCE 08/02/20 05:15 08/02/20 05:16 DC 08/02/20 05:23 10 MG Ondansetron HCl (Zofran) 4 mg PRN Q6HRS PRN 07/31/20 18:45 Pantoprazole Sodium (Protonix) 40 mg DAILYAC 08/01/20 12:00 08/02/20 05:18 40 MG Polyethylene Glycol (miraLAX PACKET) 17 gm PRN DAILY PRN 08/01/20 10:30 Sodium Chloride 1,000 ml @ 400 mls/hr Q2H30M PRN 08/01/20 10:26 08/01/20 22:25 DC Lab Laboratory Tests Test 08/02/20 06:19 White Blood Count 5.8 x10^3/uL (4.0-11.0) Red Blood Count 3.44 x10^6/uL (3.50-5.40) Hemoglobin 10.5 g/dL (12.0-15.5) Hematocrit 31.3 % (36.0-47.0) Mean Corpuscular Volume 91 fL (79-100) Mean Corpuscular Hemoglobin 31 pg (25-35) Mean Corpuscular Hemoglobin Concent 34 g/dL (31-37) Red Cell Distribution Width 15.1 % (11.5-14.5) Platelet Count 178 x10^3/uL (140-400) Neutrophils (%) (Auto) 63 % (31-73) Lymphocytes (%) (Auto) 25 % (24-48) Monocytes (%) (Auto) 9 % (0-9) Eosinophils (%) (Auto) 3 % (0-3) Basophils (%) (Auto) 1 % (0-3) Neutrophils # (Auto) 3.6 x10^3/uL (1.8-7.7) Lymphocytes # (Auto) 1.4 x10^3/uL (1.0-4.8) Monocytes # (Auto) 0.5 x10^3/uL (0.0-1.1) Eosinophils # (Auto) 0.2 x10^3/uL (0.0-0.7) Basophils # (Auto) 0.0 x10^3/uL (0.0-0.2) Sodium Level 139 mmol/L (136-145) Potassium Level 3.7 mmol/L (3.5-5.1) Chloride Level 101 mmol/L (98-107) Carbon Dioxide Level 31 mmol/L (21-32) Anion Gap 7 (6-14) Blood Urea Nitrogen 13 mg/dL (7-20) Creatinine 3.7 mg/dL (0.6-1.0) Estimated GFR (Cockcroft-Gault) 14.4 Glucose Level 98 mg/dL (70-99) Calcium Level 9.1 mg/dL (8.5-10.1) Results All relevant outside records, renal labs, imaging studies, telemetry/EKG's were reviewed. Justicifation of Admission Dx: Justifications for Admission: Justification of Admission Dx: Yes OBEY FISH MD Aug 02, 2020 11:02
--- NOTE | 2020-08-02 11:11 | EKG ---
[facility] [address] [place] [address] Test Date: 2020-07-31 Test Time: 16:55:58 Pat Name: MIKE SALEH Department: Room: Gender: F Rn Outpatient Surgery: MIKE : 1945 Requested By: KONG JOSÉ Order Number: [id number] Reading MD: Measurements Intervals [place] Rate: 59 P: 36 DE: 210 QRS: 2 QRSD: 90 T: 0 QT: 462 QTc: 462 Interpretive Statements SINUS RHYTHM NORMAL ECG RI6.02 Compared to ECG 04/29/2019 14:24:23 Sinus arrhythmia no longer present First degree AV block no longer present T-wave abnormality no longer present
--- NOTE | 2020-08-02 11:20 | PDOC ---
Date of Service: DATE: 08/02/20 TIME: 11:16 Objective: Objective: D/w nurse - awaiting previous thyroid imaging, possible DC later - going to try GI soft diet, has tolerated, no stool. Vital Signs: Vital Signs Date Time Temp Pulse Resp B/P (MAP) Pulse Ox O2 Delivery O2 Flow Rate FiO2 08/02/20 08:32 66 158/47 08/02/20 07:00 98.4 18 95 Room Air 98.4 08/01/20 10:57 2.0 Labs: Laboratory Tests Test 08/02/20 06:19 White Blood Count 5.8 x10^3/uL Red Blood Count 3.44 x10^6/uL Hemoglobin 10.5 g/dL Hematocrit 31.3 % Mean Corpuscular Volume 91 fL Mean Corpuscular Hemoglobin 31 pg Mean Corpuscular Hemoglobin Concent 34 g/dL Red Cell Distribution Width 15.1 % Platelet Count 178 x10^3/uL Neutrophils (%) (Auto) 63 % Lymphocytes (%) (Auto) 25 % Monocytes (%) (Auto) 9 % Eosinophils (%) (Auto) 3 % Basophils (%) (Auto) 1 % Neutrophils # (Auto) 3.6 x10^3/uL Lymphocytes # (Auto) 1.4 x10^3/uL Monocytes # (Auto) 0.5 x10^3/uL Eosinophils # (Auto) 0.2 x10^3/uL Basophils # (Auto) 0.0 x10^3/uL Sodium Level 139 mmol/L Potassium Level 3.7 mmol/L Chloride Level 101 mmol/L Carbon Dioxide Level 31 mmol/L Anion Gap 7 Blood Urea Nitrogen 13 mg/dL Creatinine 3.7 mg/dL Estimated GFR (Cockcroft-Gault) 14.4 Glucose Level 98 mg/dL Calcium Level 9.1 mg/dL PE: GEN: sounds like in the shower - nurse says might be working w/ PT A/P: Abnormal thyroid imaging ACD GERD, ?constipation -- Plans as above. Would continue trial of PPI and fiber. Justicifation of Admission Dx: Justifications for Admission: Justification of Admission Dx: Yes NATALIA REYES Aug 02, 2020 11:20
[2020-08-02 15:00] VITALS: BP 147/39
[2020-08-02 19:20] VITALS: BP 169/62
[2020-08-02] MEDS: ATORVASTATIN CALCIUM 40 MG TABLET. PO SCH (21:11)
[2020-08-02 23:13] VITALS: BP 154/56
[2020-08-03 03:12] VITALS: BP 163/56
[2020-08-03] MEDS: PANTOPRAZOLE 40 MG TABLET.DR. PO SCH (06:21)
[2020-08-03] MEDS ORDERED: IV NORMAL SALINE 1000ML BAG 1,000 ML IV PRN ×2 (08:08)
[2020-08-03] MEDS ORDERED: DIALYSIS PATIENT. MC PRN (08:15)
[2020-08-03] MEDS: HEPARIN for SUB-Q USE 5,000 UNIT/ML VIAL. SQ SCH (09:00)
--- NOTE | 2020-08-03 09:33 | PDOC3 ---
IM DISCHARGE SUMMARY Date of Admission Date of Admission Date of Admission: Jul 31, 2020 at 16:00 Date of Discharge Date of Discharge August 03, 2020 Primary Diagnosis Primary Diagnosis 1. Acute abdominal pain. 2. Persistent nausea. 3. End-stage renal disease, on hemodialysis. 4. Neck swelling, likely due to thyromegaly and thyroid nodules. 5. Hypertension with chronic kidney disease 3. 6. Diabetes mellitus type 2 7. Hyperlipidemia. 8. Diastolic congestive heart failure. 9. Arthritis. 10. Complex renal cyst. 11. Depression. 12. Diverticulosis. 13. Hiatal hernia. 14. Hemorrhoids. 15. Severe obstructive sleep apnea with CPAP and mild pulmonary hypertension. Consults Consults Bernard Francis MD; Cedric Land MD; Bernard Fermin MD Brief hospital course Brief hospital course HISTORY OF PRESENT ILLNESS: This is a 75-year-old female who has end-stage renal disease, on hemodialysis with multiple medical problems including diastolic heart failure, diverticulosis, hyperlipidemia, hypertension, gastroesophageal reflux disease, who was recently noted to have swelling of the right side of the neck and had a thyroid sonogram that showed bilateral thyroid nodules, some very large. Because of her being on dialysis, consent was about some vascular issues on the right side of the neck, so workup was in progress; however, her dialysis access was on the left side. Decision was made to order CT of the neck and chest with contrast after discussion with Dr. Land; however, while this workup was going on yesterday, the patient started having significant abdominal pain and nausea all day and was not able to eat. She has had some nausea the day before and yesterday she also had constipation. The patient states that she has been having more nausea recently and because of the abdominal pain and nausea, she came to the Emergency Room. In the Emergency Room, the patient was evaluated. IV fluids were given, but could not be given a lot because she was on dialysis. The patient was started on clear liquids. WBC count was 6, hemoglobin 10.8. Sodium 138, potassium 3.7, BUN 33, creatinine 4.7, lipase 64. TSH 1.092, free T4 1.10. Urinalysis was negative. WBC count was [address] scan of abdomen and pelvis and CT angiogram of the neck showed scattered atherosclerotic plaquing and cervical arterial tortuosity, 50-69% stenosis on the left cervical internal carotid artery, thyromegaly with a dominant left thyroid nodule; however, on the sonogram, she also had a large right side nodule, no masses noted in the mediastinum, has a multinodular thyroid goiter, cardiomegaly, atherosclerotic coronary artery disease. Abdominal CT did not show any acute findings. Because of the persistent abdominal pain, nausea and inability to eat and increased weakness, the patient was admitted for further evaluation and management. For more details regarding the past history, family history, social history, surgical history and other details, please refer to History and Physical. Restart CPAP. Start PT, OT. Consult Dr. Land for hemodialysis and end-stage renal disease, consult Dr. Ramos for GI evaluation and management. Consult Dr. Richardson for a thyroid mass and thyroid nodules. Keep her on clear liquid diet, hemodialysis this morning. Continue IV fentanyl and Zofran as needed. Start PT, OT. Prognosis of this patient is very poor due to her multiple medical problems. For details, please refer to the orders. Unable to give more IV fluids because of the end-stage renal disease. For details, please refer to the orders. Acute abdominal pain-improving. Famotidine was stopped and patient was started on Protonix. Advance diet slowly Right-sided neck swelling-this is due to enlarged thyroid. Will need thyroid biopsy as outpatient in follow-up of the enlarged thyroid with the surgeon as outpatient.. Diabetes mellitus with hypoglycemia blood sugar was 44 and 58 this morning and then it went up to 140. Patient did not receive any insulin yesterday. She states that she takes Levemir 20 units subcu daily at home. Overall improving. Tolerating diet.. Discussed with the staff to check blood sugar as she is in dialysis unit. If she remains stable today discharge her later to home with home health services. See me in the office next . End-stage renal disease-hemodialysis Thursday Physical deconditioning and osteoarthritis-PT/OT Medications Medications reviewed and reconciled for discharge. Allergy Allergies Coded Allergies Type Severity Reaction Last Updated Verified lisinopril Allergy Intermediate 04/20/19 Yes metformin Allergy Intermediate 04/20/19 Yes sertraline Allergy Intermediate 04/20/19 Yes Follow up in 5 days. DISPOSITION: Home health services Comments Discharge Management - 35 minutes. For other details please refer to discharge instructions Justicifation of Admission Dx: Justifications for Admission: Justification of Admission Dx: Yes DRE CEE MD Aug 03, 2020 09:33
--- NOTE | 2020-08-03 09:37 | SNU/HH DC ---
DISCHARGE WITH HOME HEALTH DISCHARGE INFORMATION: Final Diagnosis: Problems Medical Problems: (1) ESRD (end stage renal disease) Status: Acute (2) Neck swelling Status: Acute (3) Weakness Status: Acute Condition on Discharge: Stable HOME HEALTH: Face to Face: I certify this patient is under my care and that I, or a nurse practitioner or physician's or assistant working with me, had a face to face encounter that meets the physician face to face encounter requirements with this patient on August 03, 2020. Medical Complications: HTN, Other (ESRD,Weakness) RN For Eval/Treatment: Yes Physical Therapy For: Evalulation/Treatment Occupational Therapy For: Evaluation/Treatment Pt Meets Homebound Status: Poor coordination w/ amb. POST DISCHARGE ORDERS: Activity Instructions for Disc: Activity as tolerated (Use walker as needed) Weight Bearing Status after Di: Full weight bearing DIET AFTER DISCHARGE: Renal (Cardiac and ADA) CHECKS AFTER DISCHARGE: Checks after discharge: Check blood press - daily, Check blood sugar, ac/hs, Check your Temp as needed, Weigh Yourself Daily FOLLOW-UP: PCP to follow Home Health: Yes Follow up with: Dr. Neo Ferro in 6 days on next Follow Up With: Dr. Francis and Dr. Land TREATMENT/EQUIPMENT ORDERS: Discharge Respiratory Equipmen: CPAP CERTIFICATION STATEMENT: Certification Statement: Certification Statement: Based on the above finding, I certify that this patient is confined to the home and needs intermittent custodial care, physical therapy and/or speech therapy, or continues to need occupational therapy.~ This patient is under my care, and I have initiated the establishment of the plan of care.~ This patient will be followed by myself or a community physician who will periodically review the plan of care. Home Meds Active Scripts Ondansetron Hcl (ONDANSETRON HCL) 4 Mg Tablet, 4 MG PO BID PRN for NAUSEA/VOMITING, #30 TAB Prov:DRE FERRO MD 08/02/20 Pantoprazole Sodium (PANTOPRAZOLE SODIUM ) 40 Mg Tablet.dr 40 MG PO DAILYAC for GERD for 30 Days, #30 TAB.SR Prov:DRE FERRO MD 08/02/20 Isosorbide Mononitrate (ISOSORBIDE MONONITRATE ER) 60 Mg Tab.er.24h, 1 TAB PO DAILY for htn, #30 TAB 5 Refills Prov:LENY RANGEL MD 05/06/19 Aspirin (ASPIRIN EC) 81 Mg Tablet.dr, 81 MG PO DAILYWBKFT for cad for 30 Days, #30 TAB.SR Prov:LENY RANGEL MD 05/03/19 Diltiazem HCl (Diltiazem 24Hr Cd) 240 Mg Cap.er.24h, 240 MG PO DAILY for htn for 30 Days, #30 CAP.SR Prov:LENY RANGEL MD 05/03/19 Carvedilol (COREG) 25 Mg Tablet, 1 TAB PO BID, #60 TAB 5 Refills Prov:ELFEGO SARABIA GRISTMILLER 10/31/16 Reported Medications Hydralazine Hcl (HYDRALAZINE HCL) 25 Mg Tablet, 1 TAB PO TID for bp, #90 TAB 5 Refills 07/31/20 Escitalopram Oxalate (LEXAPRO) 5 Mg Tablet, 1 TAB PO DAILY, #30 TAB 2 Refills 10/29/16 Amlodipine Besylate (AMLODIPINE BESYLATE) 10 Mg Tablet, 10 MG PO DAILY, TAB 10/29/16 Atorvastatin Calcium (LIPITOR) 40 Mg Tablet, 1 TAB PO DAILY, #30 TAB 5 Refills 10/29/16 Discontinued Reported Medications Insulin Detemir (LEVEMIR) 100 Unit/1 Ml Vial, 25 UNIT SQ DAILY for dm, VIAL 07/31/20 Epoetin Tj (EPOGEN) 2,000 Unit/1 Ml Vial, 80819 UNIT SUBCUT Q2WKS for anemia, EACH 04/28/19 Famotidine (FAMOTIDINE) 40 Mg Tablet, 40 MG PO HS, TAB 10/29/16 DRE FERRO MD Aug 03, 2020 09:37
--- NOTE | 2020-08-03 09:38 | PDOC ---
DATE OF SERVICE DATE: 08/03/20 TIME: 09:35 SUBJECTIVE ROS stable, No complaints OBJECTIVE Vital Signs Vital Signs Date Time Temp Pulse Resp B/P (MAP) Pulse Ox O2 Delivery O2 Flow Rate FiO2 08/03/20 03:12 98.6 73 18 163/56 (91) 92 Room Air 98.6 I & 0 Intake and Output 08/03/20 07:00 Intake Total 680 ml Balance 680 ml Intake Oral 680 ml # Voids 4 PHYSICAL EXAM Physical Exam GEN: NAD HEEN: OM moist ,R thyroid enlarged, soft, not fixed, NECK: Supple CVS: RRR RESP: CTA, Non labored GI: Soft, NT : No [place] NEUR0- AxO, Grossly normal SKIN- No Rash DIAGNOSIS/ASSESSMENT Assessment & Plan ESRD - On HD MWF under Dr. Land's care Seen on Dialysis, No complaints, tolerating well, discussed treatment plan with Denny s/p Renal Bx in the past - Global Glomerulosclerosis Rt neck mass - enlarged thyroid. Will need thyroid biopsy as outpatient in follow-up with the surgeon Abdominal pain/Diarrhea - resolved HTN - Renal doppler in 2015 .No evidence of a hemodynamically significant stenosis. Elevated resistive indices are nonspecific, can be a finding of medical renal disease. Cardiology managing, Anemia- no indication for ANA MARIA DM- per primary DC per Primary COMMENT/RELEVANT DATA Meds Current Medications Medications (Trade) Dose Ordered Sig/Elfego Start Time Stop Time Status Last Admin Dose Admin Acetaminophen (Tylenol) 650 mg PRN Q6HRS PRN 07/31/20 18:45 07/31/20 21:39 650 MG Albumin Human 200 ml @ 200 mls/hr 1X PRN PRN 08/01/20 10:30 08/01/20 16:29 DC Amlodipine Besylate (Norvasc) 10 mg DAILY 08/01/20 09:00 08/02/20 08:30 10 MG Aspirin (Ecotrin) 81 mg DAILYWBKFT 08/01/20 08:00 08/02/20 08:30 81 MG Atorvastatin Calcium (Lipitor) 40 mg QHS 07/31/20 21:00 08/02/20 21:11 40 MG Bisacodyl (Dulcolax Tab) 5 mg PRN DAILY PRN 08/01/20 10:30 Calcium Polycarbophil (Fibercon) 525 mg QODAY 08/01/20 12:00 08/01/20 13:01 525 MG Carvedilol (Coreg) 25 mg BIDWMEALS 07/31/20 20:00 08/02/20 17:12 25 MG Citalopram Hydrobromide (CeleXA) 10 mg DAILY 08/01/20 09:00 08/02/20 08:32 10 MG Darbepoetin Tj (ARANESP for DIALYSIS PTS) 40 mcg WEEKLYHS 08/06/20 21:00 Dextrose (Dextrose 50%-Water Syringe) 12.5 gm 1X ONCE 08/01/20 07:45 08/01/20 07:47 DC 08/01/20 07:40 12.5 GM Diltiazem HCl (Cardizem 24hr Cd) 240 mg DAILY 08/01/20 09:00 08/02/20 08:31 240 MG Famotidine (Pepcid) 20 mg QMWF 08/01/20 16:00 08/01/20 11:13 DC Fentanyl Citrate (Fentanyl 2ml Vial) 25 mcg PRN Q3HRS PRN 07/31/20 22:15 08/01/20 22:17 25 MCG Heparin Sodium (Porcine) (Heparin Sodium) 5,000 unit Q12HR 08/01/20 21:00 08/02/20 21:16 5,000 UNIT Hydralazine HCl (Apresoline) 25 mg TID 07/31/20 21:00 08/02/20 21:12 25 MG Info (CONTRAST GIVEN -- Rx MONITORING) 1 each PRN DAILY PRN 07/31/20 12:30 08/02/20 12:29 DC Info (PHARMACY MONITORING -- do not chart) 1 each PRN DAILY PRN 08/03/20 08:15 Insulin Glargine (Lantus Syringe) 25 unit QHS 07/31/20 21:00 08/01/20 08:03 DC 07/31/20 21:47 25 UNIT Iohexol (Omnipaque 350 Mg/ml) 90 ml 1X ONCE 07/31/20 12:30 07/31/20 12:31 DC 07/31/20 12:48 90 ML Isosorbide Mononitrate (Imdur) 60 mg DAILY 08/01/20 09:00 08/02/20 08:32 60 MG Labetalol HCl (Normodyne Iv Push) 10 mg 1X ONCE 08/02/20 05:15 08/02/20 05:16 DC 08/02/20 05:23 10 MG Ondansetron HCl (Zofran) 4 mg PRN Q6HRS PRN 07/31/20 18:45 Pantoprazole Sodium (Protonix) 40 mg DAILYAC 08/01/20 12:00 08/03/20 06:21 40 MG Polyethylene Glycol (miraLAX PACKET) 17 gm PRN DAILY PRN 08/01/20 10:30 Sodium Chloride 1,000 ml @ 400 mls/hr Q2H30M PRN 08/03/20 08:08 08/03/20 20:07 Results All relevant outside records, renal labs, imaging studies, telemetry/EKG's were reviewed. Justicifation of Admission Dx: Justifications for Admission: Justification of Admission Dx: Yes OBEY FISH MD Aug 03, 2020 09:38
--- NOTE | 2020-08-03 10:04 | PDOC ---
Date of Service: DATE: 08/03/20 TIME: 09:59 Subjective: Subjective: Feels okay except hasn't stooled yet. Objective: Objective: D/w nurse - no GI concerns, possible DC today. Vital Signs: Vital Signs Date Time Temp Pulse Resp B/P (MAP) Pulse Ox O2 Delivery O2 Flow Rate FiO2 08/03/20 03:12 98.6 73 18 163/56 (91) 92 Room Air 98.6 PE: GEN: dialyzing LUNGS: CTAB HEART: RRR ABD: S/ND/NT NEURO/PSYCH: A & O 3 A/P: Abnormal thyroid imaging ACD GERD, constipation -- Note DC orders. Try Dulcolax. Justicifation of Admission Dx: Justifications for Admission: Justification of Admission Dx: Yes NATALIA REYES Aug 03, 2020 10:04
[2020-08-03] MEDS ORDERED: BISACODYL 5 MG TABLET.DR. PO ONE (10:15)
[2020-08-03 11:27] VITALS: BP 168/53
[2020-08-03] MEDS: ISOSORBIDE MONONITRATE ER 30 MG TAB.ER.24H PO SCH (11:56)
[2020-08-03] MEDS: ASPIRIN ENTERIC COATED 81 MG TABLET.DR. PO SCH (11:57)
[2020-08-03] MEDS: CITALOPRAM 10 MG TABLET. PO SCH (11:57)
[2020-08-03] MEDS: hydrALAZINE 25 MG TABLET PO SCH ×2 (11:58→12:01)
[2020-08-03] MEDS: amLODIPine BESYLATE 10 MG TABLET PO SCH (11:58)
[2020-08-03] MEDS: CALCIUM POLYCARBOPHIL 625 MG TABLET PO SCH (11:58)
[2020-08-03] MEDS: CARVEDILOL 12.5 MG TABLET. PO SCH ×2 (11:58→17:00)
--- NOTE | 2020-08-03 13:17 | PDOC ---
SURGICAL PROGRESS NOTE DATE: 08/03/20 TIME: 13:17 Subjective off unit when rounded--Sono reviewed --will need outpt needle bx--can fu in office Vital Signs Vital Signs Date Time Temp Pulse Resp B/P (MAP) Pulse Ox O2 Delivery O2 Flow Rate FiO2 08/03/20 11:58 70 168/53 08/03/20 11:27 98.6 18 95 Room Air 98.6 I&O Intake and Output 08/03/20 06:59 Intake Total 680 ml Balance 680 ml Intake Oral 680 ml # Voids 4 Labs Laboratory Tests Test 08/02/20 06:19 White Blood Count 5.8 x10^3/uL (4.0-11.0) Red Blood Count 3.44 x10^6/uL (3.50-5.40) Hemoglobin 10.5 g/dL (12.0-15.5) Hematocrit 31.3 % (36.0-47.0) Mean Corpuscular Volume 91 fL (79-100) Mean Corpuscular Hemoglobin 31 pg (25-35) Mean Corpuscular Hemoglobin Concent 34 g/dL (31-37) Red Cell Distribution Width 15.1 % (11.5-14.5) Platelet Count 178 x10^3/uL (140-400) Neutrophils (%) (Auto) 63 % (31-73) Lymphocytes (%) (Auto) 25 % (24-48) Monocytes (%) (Auto) 9 % (0-9) Eosinophils (%) (Auto) 3 % (0-3) Basophils (%) (Auto) 1 % (0-3) Neutrophils # (Auto) 3.6 x10^3/uL (1.8-7.7) Lymphocytes # (Auto) 1.4 x10^3/uL (1.0-4.8) Monocytes # (Auto) 0.5 x10^3/uL (0.0-1.1) Eosinophils # (Auto) 0.2 x10^3/uL (0.0-0.7) Basophils # (Auto) 0.0 x10^3/uL (0.0-0.2) Sodium Level 139 mmol/L (136-145) Potassium Level 3.7 mmol/L (3.5-5.1) Chloride Level 101 mmol/L (98-107) Carbon Dioxide Level 31 mmol/L (21-32) Anion Gap 7 (6-14) Blood Urea Nitrogen 13 mg/dL (7-20) Creatinine 3.7 mg/dL (0.6-1.0) Estimated GFR (Cockcroft-Gault) 14.4 Glucose Level 98 mg/dL (70-99) Calcium Level 9.1 mg/dL (8.5-10.1) Problem List Problems Medical Problems: (1) ESRD (end stage renal disease) Status: Acute (2) Neck swelling Status: Acute (3) Weakness Status: Acute Justicifation of Admission Dx: Justifications for Admission: Justification of Admission Dx: Yes EVA GAN MOTOR VEHICLES SUPERVISOR Aug 03, 2020 13:17
[2020-08-03 13:28] LABS: CALCIUM 9.5 mg/dL (8.5-10.1); CREATININE 3.2 mg/dL (0.6-1.0); POTASSIUM 3.9 mmol/L (3.5-5.1)
[2020-08-03 15:09] VITALS: BP 151/70
[2020-08-06] MEDS ORDERED: DARBEPOETIN ALFA 40 MCG/0.4 ML DISP.SYRIN. SQ SCH (21:00)
== END 2020-08-03 17:02 | disposition home health service (06) | DRG 391 ==
LOC: ER 11:27 → 4 NORTH 16:00
PROVIDERS: ADMIT Internal Medicine; ATTEND Internal Medicine
PROC: 5A1D70Z Performance of Urinary Filtration, Intermittent, Less than 6 Hours Per Day (ICD-10-PCS; 2020-08-01)
PROC: 5A1D70Z Performance of Urinary Filtration, Intermittent, Less than 6 Hours Per Day (ICD-10-PCS; principal; 2020-08-03)
DX: K21.9 Gastro-esophageal reflux disease without esophagitis (principal); N18.6 End stage renal disease; I13.2 Hypertensive heart and chronic kidney disease with heart failure and with stage 5 chronic kidney disease, or end stage renal disease; I50.32 Chronic diastolic (congestive) heart failure; E04.2 Nontoxic multinodular goiter; E11.22 Type 2 diabetes mellitus with diabetic chronic kidney disease; E78.5 Hyperlipidemia, unspecified; F32.9 Major depressive disorder, single episode, unspecified; G47.33 Obstructive sleep apnea (adult) (pediatric); G62.9 Polyneuropathy, unspecified; I25.10 Atherosclerotic heart disease of native coronary artery without angina pectoris; I27.20 Pulmonary hypertension, unspecified; K44.9 Diaphragmatic hernia without obstruction or gangrene; K57.90 Diverticulosis of intestine, part unspecified, without perforation or abscess without bleeding; K58.9 Irritable bowel syndrome, unspecified; K64.9 Unspecified hemorrhoids; M19.90 Unspecified osteoarthritis, unspecified site; N28.1 Cyst of kidney, acquired; Z90.49 Acquired absence of other specified parts of digestive tract; Z90.710 Acquired absence of both cervix and uterus; Z99.2 Dependence on renal dialysis; K29.70 Gastritis, unspecified, without bleeding; Z88.8 Allergy status to other drugs, medicaments and biological substances; E11.649 Type 2 diabetes mellitus with hypoglycemia without coma; Z79.4 Long term (current) use of insulin
CPT/HCPCS: 36415; 71275; 74177; 80048; 80053; 81001; 82962; 83690; 84439; 84443; 85025; 85610; 93005; 96374; 99285; J1644; J1815; J3010; J3490; J7040; Q9967; 97110-GP; 97116-GP; 97535-GO; G0378

== ENCOUNTER → 2020-08-23 | Outpatient (CLI) | payer OTHER ==
[2020-08-03 15:09] VITALS: BP 151/70
[~2020-08-23] MED LIST changes: +AMLO-187 PO; -AMLO10TA8 PO; +HYDR-2868 PO; +INSU100V13 SQ; +ONDA-84 PO; +PANT40TA77 PO
--- NOTE | 2020-08-23 16:13 | RAD ---
EXAMINATION: Ultrasound-guided fine-needle aspiration thyroid nodules, 08/23/2020 12:40 PM CLINICAL INDICATION: Suspicious thyroid nodules COMPARISON: Thyroid ultrasound 07/24/2020 FINDINGS/TECHNIQUE: The purpose of the procedure, and risks and benefits were explained to the patient. Informed consent was obtained. A timeout was performed. Initial ultrasound images identified the suspicious mid right thyroid nodule and the suspicious mid and inferior left thyroid nodule. The skin overlying the patient's thyroid gland was marked, prepped, and draped in standard sterile fashion. Skin and subcutaneous soft tissue were anesthetized with 1% lidocaine. Next, using continuous ultrasound guidance, three 25-gauge fine-needle aspiration samples were obtained of each of the thyroid nodules, beginning first with the right thyroid nodule, next the mid left thyroid nodule, and last the inferior left thyroid nodule. These were given to the pathologist for analysis. The skin was cleansed and covered with a dressing. The patient tolerated the procedure well and left in stable condition. IMPRESSION: Technically successful, ultrasound-guided fine needle aspiration of bilateral suspicious thyroid nodules. Electronically signed by: Onelia Ashraf MD (08/23/2020 4:10 PM) [id number]
--- NOTE | 2020-08-28 13:09 | PATHOLOGY ---
Note [facility] Accession Number: [id number] TESTS RESULT FLAG UNITS REF RANGE LAB Clinician Provided Cytology Information No. of containers..01 Other (Miscellaneous) Source: RIGHT THYROID DIAGNOSIS: 02 RIGHT THYROID NEGATIVE FOR MALIGNANT CELLS. BETHESDA CATEGORY II. SPECIMEN CONSISTS OF BENIGN FOLLICULAR CELLS, HEMOSIDERIN-LADEN MACROPHAGES, COLLOID, AND BLOOD. THIS PATTERN IS CONSISTENT WITH A BENIGN FOLLICULAR NODULE. COLLOID IS PRESENT. SPECIMEN CONSISTS OF HEMOSIDERIN-LADEN MACROPHAGES AND BLOOD. THIS INTERPRETATION INCLUDES EVALUATION OF A CELL BLOCK. THYROID FOLLICULAR CELLS WITH FOCAL HURTHLE CELL CHANGES ADMIXED WITH NUMEROUS MACROPHAGES, COLLOID AND BLOOD. OF NOTE, THIS IS A SMALL PORTION OF A LARGER LESION AND MAY NOT BE BISQUE TILE BURNER. THE CASE IS CO-REVIEWED WITH DR. GLORIA ROMERO. PLEASE SEE ALSO THE ADDITIONAL THRYOID CYTOLOGY SPECIMENS FROM THE LEFT MID THYROID NODULE ([id number]) AND FROM THE LEFT INFERIOR THYROID NODULE ([id number]). CLINICAL AND RADIOGRAPHIC CORRELATION IS REQUIRED. Pathologist ICD10: 02 E04.1 Signed out by: 02 Kelsi Cueto MD, Pathologist NPI- [id number] Performed by: Gisel Schmitt, Psychology Tech ([facility]) Gross description: 01 30ML, RED, 1TP, 1CB /LCS 08/24/2020 1738 Local FLAG LEGEND: L-Low Normal,H-High Normal,LL-Alert Low,HH-Alert High <-Panic Low,>-Panic High,A-Abnormal,AA-Critical Abnormal Performed at: 01 [place] [facility] [address] [place] [address] Duy Barber MD, 02 [place] [facility] [address] [address] Kenton Bush MD, Specimen Comment: A courtesy copy of this report has been sent to [phone] Specimen Comment: [id number] Specimen Comment: Report sent to / DR CEE Performed at: 01 [facility] [address], [place], [place] [id number] MD Duy Barber MD Phone: [phone]
--- NOTE | 2020-08-28 13:09 | PATHOLOGY ---
Note [facility] Accession Number: [id number] TESTS RESULT FLAG UNITS REF RANGE LAB Clinician Provided Cytology Information No. of containers..01 Other (Miscellaneous) Source: LEFT INF THYROID DIAGNOSIS: LEFT INF THYROID INCONCLUSIVE. BETHESDA CATEGORY III. ATYPIA OF UNDETERMINED SIGNIFICANCE. BETHESDA CATEGORY III. FOLLICULAR LESION OF UNDETERMINED SIGNIFICANCE. SPECIMEN CONSISTS OF ABUNDANT FOLLICULAR CELLS WITH SCANT COLLOID. THE DIFFERENTIAL DIAGNOSIS INCLUDES CELLULAR ADENOMATOID NODULE AND FOLLICULAR NEOPLASM. THRYOID FOLLICULAR CELLS WITH HURTHLE CELL CHANGES ARE PRESENT AMONGST NUMEROUS MACROPHAGES, COLLOID AND BLOOD. THE FINDINGS REPRESENT A FOLLICULAR LESION OF UNDETERMINED SIGNIFICANCE. OF NOTE, THIS IS A SMALL PORTION OF A LARGER LESION AND MAY NOT BE BILLET GRINDER. THE CASE IS CO-REVIEWED WITH DR. GLORIA ROMERO. PLEASE SEE ALSO THE ADDITIONAL CYTOLOGY SPECIMENS FROM THE RIGHT MID THYROID NODULE ([id number]) AND LEFT MID THYROID NODULE ([id number]). CLINICAL AND RADIOGRAPHIC CORRELATION IS REQUIRED. Pathologist ICD10: 02 R89.6, R89.6 Signed out by: Kelsi Cueto MD, Pathologist NPI- [id number] Performed by: Gisel Schmitt, Bar Machine Operator ([facility]) Gross description: X, X, X /LCS 08/24/2020 1823 Local FLAG LEGEND: L-Low Normal,H-High Normal,LL-Alert Low,HH-Alert High <-Panic Low,>-Panic High,A-Abnormal,AA-Critical Abnormal Performed at: [place] [address] [place] [address] Duy Barber MD, [address] [place] [id number] [address] Kenton Bush MD, Specimen Comment: A courtesy copy of this report has been sent to [phone] Specimen Comment: [id number] Specimen Comment: Report sent to / DR CEE Performed at: 01 [facility] [address] [place] [address] [address], [place], [place] [id number] MD Duy Barber MD Phone: [phone]
--- NOTE | 2020-08-28 13:09 | PATHOLOGY ---
Note [facility] Accession Number: [id number] TESTS RESULT FLAG UNITS REF RANGE LAB Clinician Provided Cytology Information No. of containers..01 Other (Miscellaneous) Source: LEFT MID THYROID DIAGNOSIS: LEFT MID THYROID INCONCLUSIVE. BETHESDA CATEGORY III. ATYPIA OF UNDETERMINED SIGNIFICANCE. BETHESDA CATEGORY III. FOLLICULAR LESION OF UNDETERMINED SIGNIFICANCE. SPECIMEN CONSISTS OF ABUNDANT FOLLICULAR CELLS WITH SCANT COLLOID. THE DIFFERENTIAL DIAGNOSIS INCLUDES CELLULAR ADENOMATOID NODULE AND FOLLICULAR NEOPLASM. THIS INTERPRETATION INCLUDES EVALUATION OF A CELL BLOCK. THYROID FOLLICULAR CELLS WITH HURTHLE CELL CHANGES ARE PRESENT AMONGST NUMEROUS MACROPHAGES, COLLOID AND BLOOD. THE FINDINGS REPRESENT A FOLLICULAR LESION OF UNDETERMINED SIGNIFICANCE. OF NOTE, THIS IS A SMALL PORTION OF A LARGER LESION AND MAY NOT BE ENTIRELY DEPUTY SHERIFF GENERALIST. MOLECULAR TESTING IS BEING PERFORMED. THE CASE IS CO-REVIEWED WITH DR. GLORIA ROMERO. PLEASE SEE ALSO THE ADDITIONAL CYTOLOGY SPECIMENS FROM THE RIGHT MID THYROID NODULE ([id number]) AND LEFT INFERIOR THYROID NODULE ([id number]). CLINICAL AND RADIOGRAPHIC CORRELATION IS REQUIRED. Pathologist ICD10: 02 R89.6, R89.6 Signed out by: 02 Kelsi Cueto MD, Pathologist NPI- [id number] Performed by: Gisel Schmitt, Senior Boiler Operator ([facility]) Gross description: 30ML, RED, 1TP, 1CB /LCS 08/24/2020 1740 Local FLAG LEGEND: L-Low Normal,H-High Normal,LL-Alert Low,HH-Alert High <-Panic Low,>-Panic High,A-Abnormal,AA-Critical Abnormal Performed at: [address] [place] [address] [place] [address] Duy Barber MD, [address] [place] [place] [id number] [address] Kenton Bush MD, Specimen Comment: A courtesy copy of this report has been sent to [phone] Specimen Comment: [id number] Specimen Comment: Report sent to / DR CEE Performed at: [address], [place], [place] [id number] MD Duy Barber MD Phone: [phone]
== END ==
LOC: US 12:06
PROVIDERS: ATTEND Internal Medicine
DX: E04.2 Nontoxic multinodular goiter (principal); R89.6 Abnormal cytological findings in specimens from other organs, systems and tissues; Z88.8 Allergy status to other drugs, medicaments and biological substances; Z79.899 Other long term (current) drug therapy
CPT/HCPCS: 10005; 10006; 60300; 76942

== ENCOUNTER 2020-09-10 04:30 | Inpatient (IN) | payer OTHER ==
[~2020-09-10] VITALS: Ht 162.6 cm; Wt 75.8 kg
[2020-09-10] VITALS (16 sets, daily range): BP systolic 57–201; BP diastolic 42–96
--- NOTE | 2020-09-10 04:53 | PHYS DOC ---
Past Medical History Past Medical History: Hypertension, Renal Failure Past Surgical History: Other Additional Past Surgical Histo: LEFT ARM FISTULA Smoking Status: Never Smoker Alcohol Use: None Drug Use: None General Adult EDM: Chief Complaint: CPR/FULL ARREST HPI: HPI: Patient is a 75 year old female who arrives with EMS status post cardiac arrest. Patient called 911 for difficulty breathing by the time paramedics got there she was unresponsive on the floor. Patient was in asystole. Patient received 20 minutes of CPR and was intubated. Patient received 5 mg of epi in total. Patient then regained her pulse. History physical review of systems are limited due to altered mental status Review of Systems: Review of Systems: Review of systems is unobtainable due to altered mental status. Patient did have shortness of breath prior to ambulance call Heart Score: Risk Factors: Risk Factors: DM, Current or recent (<one month) smoker, HTN, HLP, family history of CAD, obesity. Risk Scores: Score 0 - 3: 2.5% MACE over next 6 weeks - Discharge Home Score 4 - 6: 20.3% MACE over next 6 weeks - Admit for Clinical Observation Score 7 - 10: 72.7% MACE over next 6 weeks - Early Invasive Strategies Current Medications: Current Medications Medications (Trade) Dose Ordered Sig/Elfego Start Time Stop Time Status Last Admin Dose Admin Calcium Gluconate (Calcium Gluconate) 1,000 mg 1X ONCE 09/10/20 04:45 09/10/20 04:46 UNV Allergies: Allergies: Allergies Coded Allergies Type Severity Reaction Last Updated Verified lisinopril Allergy Intermediate 04/20/19 Yes metformin Allergy Intermediate 04/20/19 Yes sertraline Allergy Intermediate 04/20/19 Yes Physical Exam: PE: Constitutional: Well developed, well nourished, unresponsive HENT: Normocephalic, atraumatic, endotracheal tube through the mouth Eyes: Pupils 6 mm and reactive Neck: Prominent goiter Cardiovascular: Occasionally irregular, peripheral pulses are slightly diminished. Lungs & Thorax: Decreased breath sounds bilaterally Abdomen: Nondistended soft Skin: Warm, dry, no erythema, no rash. [] Back: Unable to assess Extremities: Mild bilateral extremity edema Neurologic: Unresponsive, no spontaneous movement Psychologic: Unable to assess Current Patient Data: Labs: Laboratory Tests Test 09/10/20 04:36 09/10/20 04:56 White Blood Count 7.8 x10^3/uL Red Blood Count 3.07 x10^6/uL Hemoglobin 9.4 g/dL Hematocrit 29.4 % Mean Corpuscular Volume 96 fL Mean Corpuscular Hemoglobin 31 pg Mean Corpuscular Hemoglobin Concent 32 g/dL Red Cell Distribution Width 15.4 % Platelet Count 156 x10^3/uL Neutrophils (%) (Auto) 62 % Lymphocytes (%) (Auto) 33 % Monocytes (%) (Auto) 4 % Eosinophils (%) (Auto) 1 % Basophils (%) (Auto) 1 % Neutrophils # (Auto) 4.8 x10^3/uL Lymphocytes # (Auto) 2.6 x10^3/uL Monocytes # (Auto) 0.3 x10^3/uL Eosinophils # (Auto) 0.0 x10^3/uL Basophils # (Auto) 0.1 x10^3/uL Platelet Estimate Pending Sodium Level 141 mmol/L Potassium Level 5.1 mmol/L Chloride Level 102 mmol/L Carbon Dioxide Level 20 mmol/L Anion Gap 19 21 mmol/L Blood Urea Nitrogen 58 mg/dL Creatinine 6.8 mg/dL Estimated GFR (Cockcroft-Gault) 7.1 BUN/Creatinine Ratio 9 Glucose Level 374 mg/dL 366 mg/dL Calcium Level 7.9 mg/dL Magnesium Level Pending Total Bilirubin Pending Aspartate Amino Transf (AST/SGOT) Pending Alanine Aminotransferase (ALT/SGPT) Pending Alkaline Phosphatase Pending Total Protein Pending Albumin Pending Albumin/Globulin Ratio Pending Bedside Hemoglobin 10.2 g/dL Bedside Hematocrit 30 % Bedside Sodium 137 mmol/L Bedside Potassium 4.8 mmol/L Bedside Chloride 102 mmol/L Bedside Total CO2 21 mmol/L Bedside Blood Urea Nitrogen 59 mg/dL Bedside Creatinine 6.4 mg/dL Bedside Ionized Calcium (Xavier) 1.05 mmol/L Current Medications Medications (Trade) Dose Ordered Sig/Elfego Route PRN Reason Start Time Stop Time Status Last Admin Dose Admin Calcium Gluconate (Calcium Gluconate) 1,000 mg 1X ONCE IVP 09/10/20 05:00 09/10/20 05:01 DC Ceftriaxone Sodium (Rocephin) 1 gm 1X ONCE IVP 09/10/20 05:30 09/10/20 05:31 Azithromycin 250 ml @ 250 mls/hr 1X ONCE IV 09/10/20 05:30 09/10/20 06:29 Vital Signs: Vital Signs Date Time Temp Pulse Resp B/P (MAP) Pulse Ox O2 Delivery O2 Flow Rate FiO2 09/10/20 04:48 65 20 97/46 (63) 91 Ventilator 09/10/20 04:44 59 20 83/43 (56) 83 Ventilator 09/10/20 04:40 69 20 76/45 (55) 95 Ventilator 09/10/20 04:31 99.1 69 14 95 Bag Valve Mask 15.0 99.1 EKG: EKG: EKG interpreted by me junctional bradycardia with a rate of 58 normal axis, nonspecific ST changes [] Radiology/Procedures: Radiology/Procedures: CXR READ BY ME: VOLUME OVERLOAD. ETT AND NG IN GOOD PLACEMENT[] Course & Med Decision Making: Course & Med Decision Making Pertinent Labs and Imaging studies reviewed. (See chart for details) [] 75-year-old female with cardiac arrest prior to arrival. Patient had appr oximately 20 minutes of CPR before return of spontaneous circulation. Patient is a dialysis patient and I think that volume overload is a primary contributing factor to her situation. I discussed the case with from nephrology who will consult and I discussed with Dr. Cee who will be the admitting physician. Patient will be covered with broad-spectrum antibiotics in case this is infectious etiology. Patient will also be swab for COVID-19. The [facility] cooling protocol has been ordered. At the time of disposition we are waiting on a negative head CT before will be implemented. Consult has been placed with pulmonary as well. Initial blood gas showed a pH of 7.264 with a PCO2 of 36 with a PO2 of 171 this was with a tidal volume of 450 and a rate of 24 with FiO2 of 100%. Respiratory therapy was informed to back the FiO2 down to 60%. Critical care time was [35] minutes exclusive of procedures. Critical care time was [35] minutes which includes time at bedside, spent in di scussion of patient's care with specialist and/or family members, with interpretation of laboratory and/or radiological studies and is exclusive of procedures. Critical conditioN: Status post CPR, respiratory failure, respiratory arrest, end-stage renal disease, volume overload Critical intervention: Vent management, initiation of hypothermia protocol, admission to the ICU with multiple consults. Patient's lactic acid is over 10. I feel this is more likely due to cardiac arrest and CPR and not sepsis or septic shock. I feel like the patient would do very poorly and her clinical situation will get significant worse if she got 30 cc/kg. Rolo Disclaimer: Rolo Disclaimer: This electronic medical record was generated, in whole or in part, using a voice recognition dictation system. Departure Departure Impression: Primary Impression: Cardiac arrest Additional Impressions: Volume overload End stage renal disease Disposition: 09 ADMITTED INPT THIS HOSP Condition: CRITICAL Referrals: DRE CEE MD (PCP) JASON MANN MD Sep 10, 2020 04:53
[2020-09-10] MEDS ORDERED: CALCIUM GLUCONATE 1,000 MG/10 ML VIAL. IVP ONE (05:00)
[2020-09-10 05:01] LABS: CREATININE ISTAT 6.4 mg/dL (0.5-1.4); HEMOGLOBIN ISTAT 10.2 g/dL (12-15); ION CA ISTAT 1.05 mmol/L (1.13-1.32); POTASSIUM ISTAT 4.8 mmol/L (3.5-5.0)
[2020-09-10 05:01] LABS: BASO # 0.1 x10^3/uL (0.0-0.2); BASO % 1 % (0-3); EOS % 1 % (0-3); HEMATOCRIT 29.4 % (36.0-47.0); HEMOGLOBIN 9.4 g/dL (12.0-15.5); LYMPH # 2.6 x10^3/uL (1.0-4.8); LYMPH % 33 % (24-48); MEAN CORPUSCULAR HEMOGLOBIN 31 pg (25-35); MEAN CORPUSCULAR HGB CONC 32 g/dL (31-37); MEAN CORPUSCULAR VOLUME 96 fL (79-100); MONO # 0.3 x10^3/uL (0.0-1.1); MONO % 4 % (0-9); NEUT # 4.8 x10^3/uL (1.8-7.7); NEUT % 62 % (31-73); PLATELET COUNT 156 x10^3/uL (140-400); RED BLOOD COUNT 3.07 x10^6/uL (3.50-5.40); RED CELL DISTRIBUTION WIDTH 15.4 % (11.5-14.5); WHITE BLOOD COUNT 7.8 x10^3/uL (4.0-11.0)
[2020-09-10 05:13] LABS: CALCIUM 7.9 mg/dL (8.5-10.1); CREATININE 6.8 mg/dL (0.6-1.0); GFR 7.1; POTASSIUM 5.1 mmol/L (3.5-5.1)
[2020-09-10 05:18] LABS: PROTHROMBIN TIME PATIENT 16.8 SEC (11.7-14.0)
[2020-09-10 05:18] LABS: BASE EXCESS COOX -10 mmol/L (-3-3); HCO3 COOX 16 mmol/L (21-28); METHEMOGLOBIN 0.3 % (0.0-1.9); OXYHEMOGLOBIN 97.2 %; PCO2 COOX 37 mmHg (35-46); PO2 COOX 171 mmHg (65-108); SAT O2 COOX 98 % (92-99)
[2020-09-10 05:19] LABS: ALBUMIN 3.1 g/dL (3.4-5.0); ALBUMIN/GLOBULIN RATIO 1.3 (1.0-1.7); MAGNESIUM 2.3 mg/dL (1.8-2.4); TOTAL BILIRUBIN 0.4 mg/dL (0.2-1.0); TOTAL PROTEIN 5.4 g/dL (6.4-8.2)
[2020-09-10 05:19] LABS: CORRECTED PCO2 COOX 37 mmHg; CORRECTED PH COOX 7.26; CORRECTED PO2 COOX 173 mmHg
[2020-09-10] MEDS ORDERED: AZITHRMYCN 500MG IVPB FOR OMNI 250 ML IV ONE ×2 (05:30→09:00)
[2020-09-10] MEDS ORDERED: cefTRIAXone IV Push 1 GM VIAL. IVP ONE ×2 (05:30→09:00)
--- NOTE | 2020-09-10 05:39 | EKG ---
[facility] [address] [place] [address] Test Date: 2020-09-10 Test Time: 05:04:24 Pat Name: MIKE SALEH Department: Room: 112 1 Gender: F Content Checker: : 1945 Requested By: JASON MANN Order Number: [id number] Reading MD: Mark Thomas MD Measurements Intervals [place] Rate: 58 P: [place]: QRS: 56 QRSD: 92 T: 28 QT: 478 QTc: 473 Interpretive Statements PROBABLE JUNCTIONAL ESCAPE RHYTHM Electronically Signed On 09-10-2020 8:50:16 [employer] ESTATE LEASING MANAGER by Mark Thomas MD
--- NOTE | 2020-09-10 06:06 | RAD ---
Study: CR PORTABLE CHEST 1V Indication: Respiratory arrest. Comparison: 05/02/2019 Findings: Endotracheal tube tip is less than a centimeter above the saida. Enteric tube tip and sidehole are below the inferior field of view. The cardiomediastinal silhouette is prominent in size and the central vasculature congested. Hazy airspace opacities scattered throughout the right more so than left lungs with relative subpleural sparing. Rachelle-B lines. No large effusion or pneumothorax. Impression: 1. Endotracheal tube tip approaches the saida. Retraction by approximately [address] the tube tip at the level of the clavicles. 2. Enlargement of the cardiomediastinal silhouette and central vascular congestion. Hazy opacities throughout the right more so than left lungs and Rachelle B lines collectively making congestive heart failure/volume overload the most likely etiology for the appearance of the lungs. Recommend follow-up to confirm improvement. Electronically signed by: BOB CASE MD (09/10/2020 6:03 AM) [id number]
--- NOTE | 2020-09-10 06:10 | NUR ---
Patient in radiology for CT Head, per ED patient is to start on Hypothermia; paged Dr Ceron for orders. Dr Ceron returned page, notified of consult, post code diagnosis, past medical history, per rapid testing patient is Covid + and plan to start Hypothermia. Dr Thomas order per cardiac standpoint, Hypothermia not indicated; verify with PCP. Will notify Dr Ferro.
--- NOTE | 2020-09-10 07:05 | NUR ---
Dr Ferro on unit, notified of discussion with Dr Kapoor and per cardiac standpoint, Hypothermia is not indicated--Dr Ferro in agreement.
--- NOTE | 2020-09-10 07:12 | RAD ---
CT head without contrast PQRS statement: CT scans at this facility use dose reduction including either automated exposure control, iterative reconstructions, and /or weight based radiation dosing via mA and kV modification when appropriate to reduce radiation dose to as low as reasonably achievable. HISTORY: Cardiac arrest. FINDINGS: No intracranial hemorrhage, mass, hydrocephalus, extra-axial fluid collections or infarction. Orbits, mastoids and bones are unremarkable. IMPRESSION: No acute abnormality. Electronically signed by: Dov Pearson MD (09/10/2020 7:09 AM) [id number]
[2020-09-10] MEDS ORDERED: MORPHINE SULFATE 2 MG/ML VIAL. IV PRN (07:15)
[2020-09-10] MEDS ORDERED: MORPHINE SULFATE 4 MG/ML VIAL. IV PRN (07:15)
[2020-09-10] MEDS ORDERED: ACETAMINOPHEN 325 MG TABLET. PO PRN (07:30)
[2020-09-10] MEDS ORDERED: PANTOPRAZOLE 40 MG TABLET.DR. PO SCH (07:30)
[2020-09-10 07:32] LABS: % BANDS 4 % (0-9); % LYMPHS 43 % (24-48); % MONOS 2 % (0-10); % SEGS 51 % (35-66)
[2020-09-10 07:35] LABS: PLT ESTIMATE ADEQUATE (ADEQUATE)
[2020-09-10] MEDS: INSULIN LISPRO 300 UNITS/3 ML VIAL. SQ SCH ×3 (08:00→17:12)
--- NOTE | 2020-09-10 08:03 | HP ---
ADMIT DATE: 09/10/2020 HISTORY OF PRESENT ILLNESS: This is a 75-year-old female who has end-stage renal disease and on hemodialysis with multiple medical problems including diastolic heart failure, diverticulosis, recent admission for abdominal pain, nausea and vomiting and a recent workup for enlarged thyroid, especially on the right side with biopsies on the right side negative for malignancy and on the left side positive for atypical cells. Called 911 early this morning because of dyspnea. By the time the paramedics arrived, she was noted to be unresponsive on the floor, she was in asystole. She received 20 minutes of CPR and was intubated. She received about 5 mg of epinephrine in total. She regained her pulse. The patient was then brought to [facility] Emergency Room and admitted for further evaluation and management. Chest x-ray showed central vascular congestion and changes of congestive heart failure and volume overload. WBC count 7.8, hemoglobin 9.4, platelet count is 156,000. Rapid COVID test was positive in the Emergency Room. ABG showed a pH 7.26, pCO2 of 37, and pO2 of 173. Sodium 141, potassium 5.1, BUN 58, creatinine 6.8, glucose 374 and 366. Lactic acid 10.9, calcium 7.9, AST 601, ALT 621, alkaline phosphatase 121. Albumin 3.1. BNP 33,118. Troponin is 0.044. INR is 1.4. Because of the acute cardiac arrest, the patient was intubated and admitted to Intensive Care Unit. SYSTEMS REVIEW: Unable to do systems review as the patient is not responsive. PAST MEDICAL HISTORY: The patient has end-stage renal disease, on hemodialysis Thursday, Thursday and Thursday; has history of hypertension; hyperlipidemia; anemia; depression; diastolic congestive heart failure; complex renal cysts; CKD 5; diabetes mellitus type 2; thyromegaly with biopsies negative for malignancy; allergic rhinitis; IBS with diarrhea; gastritis; diverticulosis; hiatal hernia; hemorrhoids; severe obstructive sleep apnea with CPAP; and mild pulmonary hypertension. PAST SURGICAL HISTORY: Includes cholecystectomy, tonsillectomy, and hysterectomy. FAMILY HISTORY: Reviewed and noncontributory. SOCIAL HISTORY: No history of smoking, alcoholism, or drug abuse. ALLERGIES: THE PATIENT IS ALLERGIC TO LISINOPRIL, METFORMIN, AND SERTRALINE. MEDICATIONS: Reviewed. We will hold most of the medications at that time. PHYSICAL EXAMINATION: VITAL SIGNS: Temperature max 99.1, pulse 69 per minute, respirations 14 per minute. The patient is on mechanical ventilation. Blood pressure in the ICU was 141/56 mmHg, prior to that was 99/46; respirations 20 per minute; and O2 sat is 100%. GENERAL: The patient is not responsive, not in acute distress. EYES: Pupils sluggish. Moderate dilatation. HENT: Unable to do full exam as she is on mechanical ventilation. NECK: Supple. JVP normal. Thyroid more enlarged on the right side. LUNGS: Decreased breath sounds at bases. Occasional coarse breath sounds. CARDIOVASCULAR: S1, S2 regular. ABDOMEN: Soft, nontender, bowel sounds present. EXTREMITIES: Trace to 1+ edema. CENTRAL NERVOUS SYSTEM: Not responsive. LABORATORY FINDINGS: As noted earlier. IMPRESSION: 1. Acute cardiac arrest with status post CPR, ROSC. 2. Acute pulmonary edema. 3. End-stage renal disease, on hemodialysis. 4. Acute on chronic diastolic congestive heart failure. 5. COVID-19 infection. 6. Lactic acidosis, likely due to cardiac arrest. 7. Elevated liver function tests, possibly shock liver. 8. Diabetes mellitus, not controlled, hyperglycemia, may be due to a recent cardiac arrest and resuscitation. The patient used to take Levemir 20 units subcutaneous daily previously, which had to be adjusted last time due to hypoglycemia. 9. Hyperlipidemia. 10. Arthritis. 11. Complex renal cysts. 12. Depression. 13. Diverticulosis. 14. Hiatal hernia. 15. Gastritis 16. Hemorrhoids. 17. Severe obstructive sleep apnea with CPAP and mild hypertension. PLAN: Admit to ICU. We will keep in isolation due to COVID infection. Consult Dr. Thomas for Cardiology evaluation and management, Dr. Rivera for Pulmonary evaluation and management, Dr. Landen Garcia for Infectious Disease evaluation and management, and Dr. Ramos for GI evaluation and management. Consult Dr. Mann for nephrology evaluation and management. We will hold most of the medications. The patient is not a candidate for hypothermia protocol due to COVID-19 infection as well as other factors per Cardiology. Continue Critical Care in ICU. Prognosis of this patient is extremely poor due to her multiple medical problems. Critical care management 40 minutes. DRE CEE MD DR: ADRIENNE/leslie JOB#: [id number] / [id number]
[2020-09-10 08:40] LABS: BASE EXCESS ABG -3 mmol/L (-3-3); HCO3 ABG 21 mmol/L (21-28); PCO2 ABG 32 mmHg (35-46); PO2 ABG 205 mmHg (65-108); SAT O2 ABG 98 % (92-99)
[2020-09-10 08:44] LABS: FIO2 ABG 60
--- NOTE | 2020-09-10 08:54 | PDOC2 ---
CARDIOLOGY CONSULT NOTE DATE OF SERVICE: DATE: 09/10/20 TIME: 08:44 CHIEF COMPLAINT: Shortness of breath HPI: 75 y.o woman with pmhx as noted below who presents to the hospital with acute resp failure and asystole in the setting of hypoxia. She is covid positive. Cardiology asked to help with care after her cardiac arrest. Rest of history is based on chart reviewed. Patient is sedated and ventilated. PMHX: 1. HTN 2. DLP 3. ESRD 4. 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 No alcohol, tob or illicit drug use. FAMHX: NC CURRENT MEDS: No current CV meds. ALLERGIES: Allergies Coded Allergies Type Severity Reaction Last Updated Verified lisinopril Allergy Intermediate 04/20/19 Yes metformin Allergy Intermediate 04/20/19 Yes sertraline Allergy Intermediate 04/20/19 Yes ROS: Negative for 08/15 systems reviewed unless noted above in HPI PHYSICAL EXAM: Vital Signs/I&O: Vital Signs Date Time Temp Pulse Resp B/P (MAP) Pulse Ox O2 Delivery O2 Flow Rate FiO2 09/10/20 06:27 74 20 137/72 (93) 100 Ventilator 09/10/20 04:31 99.1 15.0 99.1 Physical Exam: Deferred due to covid precautions DIAGNOSTIC TESTING: Labs reviewed EKG reviewed prob junctional rhythm, currently on tele with SR. ASSESSMENT: 1. Asystolic cardioresp arrest in the setting of COVID PNA 2. ESRD 3. Known history of CMP, EF 45% 4. Shock liver 5. Metabolic derangements with lactic acidosis due to arrest PLAN: 1. Supportive care with treatment of COVID 2. No acute indication from CV perspective for hypothermia protocol, defer to pulmonary and primary. Furthermore, we do not yet know effect of hypothermia in covid patients. 3. Will consider repeat echo prior to discharge. (EKG and initial troponin WNL). Repeat troponin to ensure no significant NSTEMI. Thanks. Will follow along. Critically ill and poor prognosis. ODELL PELAYO MD Sep 10, 2020 08:54
[2020-09-10] MEDS: CHLORHEXIDINE 0.12% 15 ML MOUTHWASH. MM SCH ×2 (09:00→23:37)
[2020-09-10] MEDS ORDERED: NOREPINEPHRINE VIAL 8 MG in IV DEXTROSE 5% 250 ML IV PRN (10:30)
[2020-09-10] MEDS: HEPARIN for SUB-Q USE 5,000 UNIT/ML VIAL. SQ SCH ×2 (11:21→23:39)
--- NOTE | 2020-09-10 11:53 | PDOC2 ---
CONSULT Date of Consult Date of Consult DATE: 09/10/20 TIME: 11:48 Reason for Consult Reason for Consult: ESRD Referring Physician Referring Physician: JOHNATHAN Identification/Chief Complaint Chief Complaint Cardiac arrest Source Source: Chart review History of Present Illness Reason for Visit: Patient is 75-year-old -[place] female with known history of ESRD secondary to biopsy-proven global glomerulosclerosis. She reportedly undergoes hemodialysis on Thursday as per old records. She apparently was found down by a friend and was brought to the ER for further evaluation. Reportedly when EMS arrived she was noted to be in asystole and required 20 aida tushar of CPR. It appears that she was intubated in the field. Chest x-ray on arrival here shows central venous congestion and changes of CHF/volume overload. Blood pressures were low at arrival with occasional bradycardia. Hemodynamics have improved currently. She remains sedated intubated on the vent and there is no family to get a history from at this time. As would be expected post cardiac arrest, patient is noted to have an extremely elevated lactic acid which appears to be trending downwards now that her perfusion has improved. Patient reportedly has tested positive for COVID-19 Past Medical History Cardiovascular: CHF, HTN, Hyperlipidemia Pulmonary: Other GI: GERD, Gastritis, Irritable bowel disease Heme/Onc: Anemia NOS Psych: Depression Rheumatologic: No pertinent hx Infectious disease: No pertinent hx Renal/: Chronic renal insuff Endocrine: Diabetes Past Surgical History Past Surgical History: Cholecystectomy, Tonsillectomy, Hysterectomy Family History Family History: Adopted Social History ALCOHOL: none Drugs: None Lives: with Family Domestic Violence: Neg Current Problem List Problem List Problems Medical Problems: (1) Cardiac arrest Status: Acute (2) End stage renal disease Status: Acute (3) Volume overload Status: Acute Current Medications Current Medications Current Medications Calcium Gluconate (Calcium Gluconate) 1,000 mg 1X ONCE IVP Last administered on 09/10/20at 11:28; Start 09/10/20 at 05:00; Stop 09/10/20 at 05:01; Status DC Ceftriaxone Sodium (Rocephin) 1 gm 1X ONCE IVP ; Start 09/10/20 at 05:30; Stop 09/10/20 at 05:31; Status DC Azithromycin 250 ml @ 250 mls/hr 1X ONCE IV ; Start 09/10/20 at 05:30; Stop 09/10/20 at 06:29; Status DC Fentanyl Citrate 30 ml @ 0 mls/hr CONT PRN IV SEE PROTOCOL; Start 09/10/20 at 07:30 Chlorhexidine Gluconate (Peridex) 15 ml BID MM ; Start 09/10/20 at 09:00 Morphine Sulfate (Morphine Sulfate) 2 mg PRN Q1HR PRN IV SEE COMMENTS.; Start 09/10/20 at 07:15 Morphine Sulfate (Morphine Sulfate) 4 mg PRN Q1HR PRN IV SEE COMMENTS.; Start 09/10/20 at 07:15 Pantoprazole Sodium (Protonix) 40 mg DAILYAC PO ; Start 09/10/20 at 07:30 Heparin Sodium (Porcine) (Heparin Sodium) 5,000 unit Q12HR SQ Last administered on 09/10/20at 11:21; Start 09/10/20 at 09:00 Acetaminophen (Tylenol) 650 mg PRN Q6HRS PRN PO MILD PAIN / TEMP > 100.3'F; Start 09/10/20 at 07:30 Insulin Human Lispro (HumaLOG) 0-8 UNITS Q6HRS SQ ; Start 09/10/20 at 08:00 Ceftriaxone Sodium (Rocephin) 1 gm 1X ONCE IVP Last administered on 09/10/20at 09:00; Start 09/10/20 at 09:00; Stop 09/10/20 at 09:01; Status DC Azithromycin 250 ml @ 250 mls/hr 1X ONCE IV Last administered on 09/10/20at 09:39; Start 09/10/20 at 09:00; Stop 09/10/20 at 09:59; Status DC Norepinephrine Bitartrate 8 mg/ Dextrose 258 ml @ 16.062 mls/ hr CONT PRN IV PER PROTOCOL; Start 09/10/20 at 10:30 Remdesivir 200 mg/ Sodium Chloride 210 ml @ 210 mls/hr 1X ONCE IV ; Start 09/10/20 at 13:00; Stop 09/10/20 at 13:59 Remdesivir 100 mg/ Sodium Chloride 230 ml @ 460 mls/hr Q24H IV ; Start 09/11/20 at 13:00; Stop 09/14/20 at 13:29 Ceftriaxone Sodium (Rocephin) 1 gm Q24H IVP ; Start 09/10/20 at 11:45; Status UNV Doxycycline Hyclate 100 mg/ Dextrose 100 ml @ 50 mls/hr Q12HR IV ; Start 09/10/20 at 21:00; Status UNV Methylprednisolone Sodium Succinate (SOLU-Medrol 125MG VIAL) 125 mg Q8HRS IV ; Start 09/10/20 at 14:00; Status UNV Active Scripts Active Ondansetron Hcl 4 Mg Tablet 4 Mg PO BID PRN Pantoprazole Sodium (Pantoprazole Sodium) 40 Mg Tablet.dr 40 Mg PO DAILYAC 30 Days Isosorbide Mononitrate Er (Isosorbide Mononitrate) 60 Mg Tab.er.24h 1 Tab PO DAILY Aspirin Ec (Aspirin) 81 Mg Tablet.dr 81 Mg PO DAILYWBKFT 30 Days Diltiazem 24Hr Cd (Diltiazem HCl) 240 Mg Cap.er.24h 240 Mg PO DAILY 30 Days Coreg (Carvedilol) 25 Mg Tablet 1 Tab PO BID Reported Hydralazine Hcl 25 Mg Tablet 1 Tab PO TID Lexapro (Escitalopram Oxalate) 5 Mg Tablet 1 Tab PO DAILY Amlodipine Besylate 10 Mg Tablet 10 Mg PO DAILY Lipitor (Atorvastatin Calcium) 40 Mg Tablet 1 Tab PO DAILY Allergies Allergies: Coded Allergies: lisinopril (Verified Allergy, Intermediate, 04/20/19) cough metformin (Verified Allergy, Intermediate, 04/20/19) sertraline (Verified Allergy, Intermediate, 04/20/19) ROS Review of System Currently unable to obtain from the patient due to sedated intubated state Physical Exam Physical Exam General Appearance: Sedated intubated on the vent in no distress Eyes: Sclera anicteric conjunctiva Normal EN: No EN Drainage Mucous Memb. Moist, orally intubated Neck: NO JVD + JVP Supple + Thyromegaly CVS: S1 S2 + Murmur No Gallop No Rub NO Edema Resp: MIN BASAL Rales no Rhonchi no Acc. Muscle use GI: BS hypoactive NO Bruit Non Tender Non Distended, somewhat obese abdomen with a pannus : no CVA tenderness; no Suprapubic Tenderness SKIN: no Rashes Breast Exam deferred Mu.Sk: Adequate passive ROM no obvious muscle Atrophy Heme: Unable to palpate Obvious LAD no Splenomegaly NEURO: Unable to currently assess due to sedated intubated state Psych: Unable to currently assess due to sedated intubated state Vital Signs Vital Signs Date Time Temp Pulse Resp B/P (MAP) Pulse Ox O2 Delivery O2 Flow Rate FiO2 09/10/20 11:25 100 Ventilator 09/10/20 06:27 74 20 137/72 (93) 09/10/20 04:31 99.1 15.0 99.1 Assessment & Plan ESRD: Proceed with dialysis later today; Dialysis as below F 180 NR 3.0 Hrs 3 K 2.5 Ca 140 Na 40 HC03 Qb 350 + Qd 500+ Heparin 0 Units Uf 1-2 Kgs or to dry weight as tolerated May give 25-50 gms of 25% Albumin if needed to maintain Hemodynamic stability Treatment plan reviewed and discussed with pension consultant Wide anion gap metabolic acidosis with extremely elevated lactic acid (10.9) at presentation presumably from cardiac arrest. Lactate is trending downwards now with reperfusion. Blood pH is compensated while on the vent Pulmonary edema on chest x-ray: Ultrafiltrate as best tolerated by hemodynamics. Suspect due to circulatory arrest Anemia: We will start Epogen if hemoglobin trends below 10. Transfuse with next HD as needed. HTN: Current BP meds reviewed. See orders for changes. Watch phosphorus trend for now. Continue home regimen of binders Status post cardiac arrest: Await cardiology evaluation and management. COVID-19 positive Discussed Plan of Care and prognosis etc. at length with ICU nurse. This portends a poor prognosis Labs Labs Laboratory Tests Test 09/10/20 04:36 09/10/20 04:56 09/10/20 05:10 09/10/20 05:29 White Blood Count 7.8 x10^3/uL (4.0-11.0) Red Blood Count 3.07 x10^6/uL (3.50-5.40) Hemoglobin 9.4 g/dL (12.0-15.5) Hematocrit 29.4 % (36.0-47.0) Mean Corpuscular Volume 96 fL (79-100) Mean Corpuscular Hemoglobin 31 pg (25-35) Mean Corpuscular Hemoglobin Concent 32 g/dL (31-37) Red Cell Distribution Width 15.4 % (11.5-14.5) Platelet Count 156 x10^3/uL (140-400) Neutrophils (%) (Auto) 62 % (31-73) Lymphocytes (%) (Auto) 33 % (24-48) Monocytes (%) (Auto) 4 % (0-9) Eosinophils (%) (Auto) 1 % (0-3) Basophils (%) (Auto) 1 % (0-3) Neutrophils # (Auto) 4.8 x10^3/uL (1.8-7.7) Lymphocytes # (Auto) 2.6 x10^3/uL (1.0-4.8) Monocytes # (Auto) 0.3 x10^3/uL (0.0-1.1) Eosinophils # (Auto) 0.0 x10^3/uL (0.0-0.7) Basophils # (Auto) 0.1 x10^3/uL (0.0-0.2) Segmented Neutrophils % 51 % (35-66) Band Neutrophils % 4 % (0-9) Lymphocytes % 43 % (24-48) Monocytes % 2 % (0-10) Platelet Estimate Adequate (ADEQUATE) Prothrombin Time 16.8 SEC (11.7-14.0) Prothromb Time International Ratio 1.4 (0.8-1.1) Activated Partial Thromboplast Time 42 SEC (24-38) Sodium Level 141 mmol/L (136-145) Potassium Level 5.1 mmol/L (3.5-5.1) Chloride Level 102 mmol/L (98-107) Carbon Dioxide Level 20 mmol/L (21-32) Anion Gap 19 (6-14) 21 mmol/L (6-14) Blood Urea Nitrogen 58 mg/dL (7-20) Creatinine 6.8 mg/dL (0.6-1.0) Estimated GFR (Cockcroft-Gault) 7.1 BUN/Creatinine Ratio 9 (6-20) Glucose Level 374 mg/dL (70-99) 366 mg/dL (70-99) Lactic Acid Level 10.9 mmol/L (0.4-2.0) Calcium Level 7.9 mg/dL (8.5-10.1) Magnesium Level 2.3 mg/dL (1.8-2.4) Total Bilirubin 0.4 mg/dL (0.2-1.0) Aspartate Amino Transf (AST/SGOT) 601 U/L (15-37) Alanine Aminotransferase (ALT/SGPT) 621 U/L (14-59) Alkaline Phosphatase 121 U/L (46-116) Troponin I Quantitative 0.044 ng/mL (0.000-0.055) YV-Tid-J-Type Natriuretic Peptide 23401 pg/mL (0-449) Total Protein 5.4 g/dL (6.4-8.2) Albumin 3.1 g/dL (3.4-5.0) Albumin/Globulin Ratio 1.3 (1.0-1.7) Bedside Hemoglobin 10.2 g/dL (12-15) Bedside Hematocrit 30 % (36-40) Bedside Sodium 137 mmol/L (135-145) Bedside Potassium 4.8 mmol/L (3.5-5.0) Bedside Chloride 102 mmol/L (98-110) Bedside Total CO2 21 mmol/L (23-32) Bedside Blood Urea Nitrogen 59 mg/dL (8-26) Bedside Creatinine 6.4 mg/dL (0.5-1.4) Bedside Ionized Calcium (Xavier) 1.05 mmol/L (1.13-1.32) O2 Saturation 98 % (92-99) Arterial Blood pH 7.26 (7.35-7.45) Arterial Blood pH (Temp corrected) 7.26 Arterial Blood pCO2 at Patient Temp 37 mmHg (35-46) Arterial Blood pCO2 (Temp correct) 37 mmHg Arterial Blood pO2 at Patient Temp 171 mmHg (65-108) Arterial Blood pO2 (Temp corrected) 173 mmHg Arterial Blood HCO3 16 mmol/L (21-28) Arterial Blood Base Excess -10 mmol/L (-3-3) Oxyhemoglobin 97.2 % Methemoglobin 0.3 % (0.0-1.9) Carbon Monoxide, Quantitative 0.3 % (0.0-1.9) FiO2 100 SARS-CoV-2 Antigen (Rapid) Positive (NEGATIVE) Test 09/10/20 07:15 09/10/20 07:45 Lactic Acid Level 4.9 mmol/L (0.4-2.0) O2 Saturation 98 % (92-99) Arterial Blood pH 7.44 (7.35-7.45) Arterial Blood pCO2 at Patient Temp 32 mmHg (35-46) Arterial Blood pO2 at Patient Temp 205 mmHg (65-108) Arterial Blood HCO3 21 mmol/L (21-28) Arterial Blood Base Excess -3 mmol/L (-3-3) FiO2 60 Laboratory Tests Test 09/10/20 04:36 09/10/20 04:56 09/10/20 05:10 09/10/20 05:29 White Blood Count 7.8 x10^3/uL (4.0-11.0) Red Blood Count 3.07 x10^6/uL (3.50-5.40) Hemoglobin 9.4 g/dL (12.0-15.5) Hematocrit 29.4 % (36.0-47.0) Mean Corpuscular Volume 96 fL (79-100) Mean Corpuscular Hemoglobin 31 pg (25-35) Mean Corpuscular Hemoglobin Concent 32 g/dL (31-37) Red Cell Distribution Width 15.4 % (11.5-14.5) Platelet Count 156 x10^3/uL (140-400) Neutrophils (%) (Auto) 62 % (31-73) Lymphocytes (%) (Auto) 33 % (24-48) Monocytes (%) (Auto) 4 % (0-9) Eosinophils (%) (Auto) 1 % (0-3) Basophils (%) (Auto) 1 % (0-3) Neutrophils # (Auto) 4.8 x10^3/uL (1.8-7.7) Lymphocytes # (Auto) 2.6 x10^3/uL (1.0-4.8) Monocytes # (Auto) 0.3 x10^3/uL (0.0-1.1) Eosinophils # (Auto) 0.0 x10^3/uL (0.0-0.7) Basophils # (Auto) 0.1 x10^3/uL (0.0-0.2) Segmented Neutrophils % 51 % (35-66) Band Neutrophils % 4 % (0-9) Lymphocytes % 43 % (24-48) Monocytes % 2 % (0-10) Platelet Estimate Adequate (ADEQUATE) Prothrombin Time 16.8 SEC (11.7-14.0) Prothromb Time International Ratio 1.4 (0.8-1.1) Activated Partial Thromboplast Time 42 SEC (24-38) Sodium Level 141 mmol/L (136-145) Potassium Level 5.1 mmol/L (3.5-5.1) Chloride Level 102 mmol/L (98-107) Carbon Dioxide Level 20 mmol/L (21-32) Anion Gap 19 (6-14) 21 mmol/L (6-14) Blood Urea Nitrogen 58 mg/dL (7-20) Creatinine 6.8 mg/dL (0.6-1.0) Estimated GFR (Cockcroft-Gault) 7.1 BUN/Creatinine Ratio 9 (6-20) Glucose Level 374 mg/dL (70-99) 366 mg/dL (70-99) Lactic Acid Level 10.9 mmol/L (0.4-2.0) Calcium Level 7.9 mg/dL (8.5-10.1) Magnesium Level 2.3 mg/dL (1.8-2.4) Total Bilirubin 0.4 mg/dL (0.2-1.0) Aspartate Amino Transf (AST/SGOT) 601 U/L (15-37) Alanine Aminotransferase (ALT/SGPT) 621 U/L (14-59) Alkaline Phosphatase 121 U/L (46-116) Troponin I Quantitative 0.044 ng/mL (0.000-0.055) WL-Mnb-A-Type Natriuretic Peptide 21024 pg/mL (0-449) Total Protein 5.4 g/dL (6.4-8.2) Albumin 3.1 g/dL (3.4-5.0) Albumin/Globulin Ratio 1.3 (1.0-1.7) Bedside Hemoglobin 10.2 g/dL (12-15) Bedside Hematocrit 30 % (36-40) Bedside Sodium 137 mmol/L (135-145) Bedside Potassium 4.8 mmol/L (3.5-5.0) Bedside Chloride 102 mmol/L (98-110) Bedside Total CO2 21 mmol/L (23-32) Bedside Blood Urea Nitrogen 59 mg/dL (8-26) Bedside Creatinine 6.4 mg/dL (0.5-1.4) Bedside Ionized Calcium (Xavier) 1.05 mmol/L (1.13-1.32) O2 Saturation 98 % (92-99) Arterial Blood pH 7.26 (7.35-7.45) Arterial Blood pH (Temp corrected) 7.26 Arterial Blood pCO2 at Patient Temp 37 mmHg (35-46) Arterial Blood pCO2 (Temp correct) 37 mmHg Arterial Blood pO2 at Patient Temp 171 mmHg (65-108) Arterial Blood pO2 (Temp corrected) 173 mmHg Arterial Blood HCO3 16 mmol/L (21-28) Arterial Blood Base Excess -10 mmol/L (-3-3) Oxyhemoglobin 97.2 % Methemoglobin 0.3 % (0.0-1.9) Carbon Monoxide, Quantitative 0.3 % (0.0-1.9) FiO2 100 SARS-CoV-2 Antigen (Rapid) Positive (NEGATIVE) Test 09/10/20 07:15 09/10/20 07:45 Lactic Acid Level 4.9 mmol/L (0.4-2.0) O2 Saturation 98 % (92-99) Arterial Blood pH 7.44 (7.35-7.45) Arterial Blood pCO2 at Patient Temp 32 mmHg (35-46) Arterial Blood pO2 at Patient Temp 205 mmHg (65-108) Arterial Blood HCO3 21 mmol/L (21-28) Arterial Blood Base Excess -3 mmol/L (-3-3) FiO2 60 Review All relevant outside records, renal labs, imaging studies, telemetry/EKG's were reviewed. Images Images Chest x-ray from ER Impression: 1. Endotracheal tube tip approaches the saida. Retraction by approximately [address] the tube tip at the level of the clavicles. 2. Enlargement of the cardiomediastinal silhouette and central vascular congestion. Hazy opacities throughout the right more so than left lungs and Rachelle B lines collectively making congestive heart failure/volume overload the most likely etiology for the appearance of the lungs. Recommend follow-up to confirm improvement. GLADYS DAVIS MD Sep 10, 2020 11:53
--- NOTE | 2020-09-10 11:57 | NUR ---
SS following for discharge planning. SS reviewed pt chart and discussed with pt RN. Pt is from home and is currently on the vent at 60%. COVID19 positive. Pt has outpatient dialysis at [facility], ; fax [phone], Thursday, Thursday, and Thursday. Pt getting plasma. Pt on IV Remdesivir, IV Rocephin, and IV Doxycycline. SS will continue to follow for discharge planning.
--- NOTE | 2020-09-10 12:15 | PDOC ---
Infectious Disease Note Vital Sign Vital Signs Vital Signs Date Time Temp Pulse Resp B/P (MAP) Pulse Ox O2 Delivery O2 Flow Rate FiO2 09/10/20 11:25 100 Ventilator 09/10/20 06:27 74 20 137/72 (93) 09/10/20 04:31 99.1 15.0 99.1 Labs Lab Laboratory Tests Test 09/10/20 04:36 09/10/20 04:56 09/10/20 05:10 09/10/20 05:29 White Blood Count 7.8 x10^3/uL (4.0-11.0) Red Blood Count 3.07 x10^6/uL (3.50-5.40) Hemoglobin 9.4 g/dL (12.0-15.5) Hematocrit 29.4 % (36.0-47.0) Mean Corpuscular Volume 96 fL (79-100) Mean Corpuscular Hemoglobin 31 pg (25-35) Mean Corpuscular Hemoglobin Concent 32 g/dL (31-37) Red Cell Distribution Width 15.4 % (11.5-14.5) Platelet Count 156 x10^3/uL (140-400) Neutrophils (%) (Auto) 62 % (31-73) Lymphocytes (%) (Auto) 33 % (24-48) Monocytes (%) (Auto) 4 % (0-9) Eosinophils (%) (Auto) 1 % (0-3) Basophils (%) (Auto) 1 % (0-3) Neutrophils # (Auto) 4.8 x10^3/uL (1.8-7.7) Lymphocytes # (Auto) 2.6 x10^3/uL (1.0-4.8) Monocytes # (Auto) 0.3 x10^3/uL (0.0-1.1) Eosinophils # (Auto) 0.0 x10^3/uL (0.0-0.7) Basophils # (Auto) 0.1 x10^3/uL (0.0-0.2) Segmented Neutrophils % 51 % (35-66) Band Neutrophils % 4 % (0-9) Lymphocytes % 43 % (24-48) Monocytes % 2 % (0-10) Platelet Estimate Adequate (ADEQUATE) Prothrombin Time 16.8 SEC (11.7-14.0) Prothromb Time International Ratio 1.4 (0.8-1.1) Activated Partial Thromboplast Time 42 SEC (24-38) Sodium Level 141 mmol/L (136-145) Potassium Level 5.1 mmol/L (3.5-5.1) Chloride Level 102 mmol/L (98-107) Carbon Dioxide Level 20 mmol/L (21-32) Anion Gap 19 (6-14) 21 mmol/L (6-14) Blood Urea Nitrogen 58 mg/dL (7-20) Creatinine 6.8 mg/dL (0.6-1.0) Estimated GFR (Cockcroft-Gault) 7.1 BUN/Creatinine Ratio 9 (6-20) Glucose Level 374 mg/dL (70-99) 366 mg/dL (70-99) Lactic Acid Level 10.9 mmol/L (0.4-2.0) Calcium Level 7.9 mg/dL (8.5-10.1) Magnesium Level 2.3 mg/dL (1.8-2.4) Total Bilirubin 0.4 mg/dL (0.2-1.0) Aspartate Amino Transf (AST/SGOT) 601 U/L (15-37) Alanine Aminotransferase (ALT/SGPT) 621 U/L (14-59) Alkaline Phosphatase 121 U/L (46-116) Troponin I Quantitative 0.044 ng/mL (0.000-0.055) FW-Syp-[id number]-Type Natriuretic Peptide 69037 pg/mL (0-449) Total Protein 5.4 g/dL (6.4-8.2) Albumin 3.1 g/dL (3.4-5.0) Albumin/Globulin Ratio 1.3 (1.0-1.7) Bedside Hemoglobin 10.2 g/dL (12-15) Bedside Hematocrit 30 % (36-40) Bedside Sodium 137 mmol/L (135-145) Bedside Potassium 4.8 mmol/L (3.5-5.0) Bedside Chloride 102 mmol/L (98-110) Bedside Total CO2 21 mmol/L (23-32) Bedside Blood Urea Nitrogen 59 mg/dL (8-26) Bedside Creatinine 6.4 mg/dL (0.5-1.4) Bedside Ionized Calcium (Xavier) 1.05 mmol/L (1.13-1.32) O2 Saturation 98 % (92-99) Arterial Blood pH 7.26 (7.35-7.45) Arterial Blood pH (Temp corrected) 7.26 Arterial Blood pCO2 at Patient Temp 37 mmHg (35-46) Arterial Blood pCO2 (Temp correct) 37 mmHg Arterial Blood pO2 at Patient Temp 171 mmHg (65-108) Arterial Blood pO2 (Temp corrected) 173 mmHg Arterial Blood HCO3 16 mmol/L (21-28) Arterial Blood Base Excess -10 mmol/L (-3-3) Oxyhemoglobin 97.2 % Methemoglobin 0.3 % (0.0-1.9) Carbon Monoxide, Quantitative 0.3 % (0.0-1.9) FiO2 100 SARS-CoV-2 Antigen (Rapid) Positive (NEGATIVE) Test 09/10/20 07:15 09/10/20 07:45 Lactic Acid Level 4.9 mmol/L (0.4-2.0) O2 Saturation 98 % (92-99) Arterial Blood pH 7.44 (7.35-7.45) Arterial Blood pCO2 at Patient Temp 32 mmHg (35-46) Arterial Blood pO2 at Patient Temp 205 mmHg (65-108) Arterial Blood HCO3 21 mmol/L (21-28) Arterial Blood Base Excess -3 mmol/L (-3-3) FiO2 60 Objective Assessment pt seen,consult dictated Plan Plan of Care / ANNA DAVIS MD Sep 10, 2020 12:15
--- NOTE | 2020-09-10 12:18 | CONS ---
DATE OF CONSULTATION: 09/10/2020 ATTENDING PHYSICIAN: Dr. Ferro. REASON FOR CONSULTATION: The patient is seen in pulmonary consultation at the request of Dr. Ferro for acute respiratory failure requiring mechanical ventilation, [id number] cardiopulmonary arrest. HISTORY OF PRESENT ILLNESS: The patient is a 75-year-old with multiple comorbidities, end-stage renal disease on hemodialysis, chronic heart failure, type 2 diabetes, hypothyroidism, diverticulosis, and sleep apnea called EMS because of dyspnea. Upon presentation EMS found her unresponsive and asystole. They followed ACLS protocol for asystole. She had 20 minutes of CPR and was given 5 rounds of epinephrine. The patient regained her blood pressure. She was transferred to the Emergency Room, intubated. She is currently in the intensive care unit. She is hypotensive. She has been given some IV fluids. She was started on Levophed by this sample steamer. Her current settings, rate of 24, tidal volume of 450, 60% FiO2 and 5 of PEEP. She had an arterial blood gas, pH of 7.43, PaCO2 of 31, PaO2 of 205. She had a rapid tested for COVID-19, which was positive. She had an INR, which was 1.4. Electrolytes were noted. BUN and creatinine were elevated. Lactic acid level initially elevated, came down to 4.9. Her BNP was markedly elevated. Her initial arterial blood gas revealed a pH of 7.26. White count was not elevated. Hemoglobin and hematocrit were noted. Chest x-ray revealed bilateral pulmonary infiltrates, possibly compatible with CHF or COVID-19 viral pneumonia. PAST MEDICAL HISTORY: End-stage renal disease, on hemodialysis; hypertension; hyperlipidemia; depression; chronic diastolic heart failure; gastritis; diverticulosis; obstructive sleep apnea; secondary pulmonary hypertension. PAST SURGICAL HISTORY: Status post cholecystectomy, tonsillectomy, and hysterectomy. REVIEW OF SYSTEMS: Unobtainable secondary to the patent's condition. SOCIAL HISTORY: No history of tobacco or alcoholism. ALLERGIES: LISTED TO LISINOPRIL, METFORMIN AND SERTRALINE. PHYSICAL EXAMINATION: GENERAL: The patient was in the intensive care unit. She was hypotensive, was undergoing IV fluids and Levophed. VITAL SIGNS: Temperature is 99.1. HEENT: Eyes, the sclerae were nonicteric. NECK: Jugular venous distention was not elevated. CHEST: Full expansion. LUNGS: Adequate flow with no wheezes. CARDIOVASCULAR: Regular rate and rhythm with S1, S2, no S3 ABDOMEN: Soft, nontender. EXTREMITIES: No clubbing, cyanosis, no edema. NEUROLOGICAL: The patient was sedated. LABORATORY DATA: As indicated above. Chest x-ray as indicated above. IMPRESSION: 1. Acute hypoxemic respiratory failure secondary to [id number] cardiopulmonary arrest. 2. Tip-jy-zkykwnwd cardiopulmonary arrest. 3. Positive rapid test for COVID. 4. COVID-19 viral pneumonia. 5. Possible COVID-19 viral sepsis. 6. Abnormal x-ray compatible with congestive heart failure, bacterial pneumonia, and COVID-19 viral pneumonia. 7. End-stage renal disease, on hemodialysis. 8. Type 2 diabetes. 9. Diverticulosis. 10. Obstructive sleep apnea. 11. History of cardiomyopathy, ejection fraction of 45%. 12. Shock liver. 13. Lactic acidosis secondary to cardiopulmonary arrest. PLAN: 1. We will continue current support with assist control ventilation, adjust minute ventilation to normalize pH. 2. Bolus with IV fluids. 3. Empiric antibiotics to cover both gram-positive and gram-negative organisms. 4. Consult Cardiology, already performed. 5. Initiate steroids. 6. Convalescent plasma for COVID. 7. Initiate remdesivir. I do appreciate the privilege in sharing in the patient's care. Total cumulative critical care time from 10:45 a.m. to 11:42 a.m. BRIGETTE SNOW MD DR: RIANA/leslie JOB#: [id number] / [id number]
[2020-09-10] MEDS: cefTRIAXone IV Push 1 GM VIAL. IVP SCH (12:37)
[2020-09-10] MEDS: DOXYCYCLINE HYCLATE 100 MG in IV DEXTROSE 5% 100ML 100 ML IV SCH ×2 (12:42→23:35)
[2020-09-10] MEDS ORDERED: REMDESIVIR LOAD in IV NORMAL SALINE 250ML TV IV ONE (13:00)
--- NOTE | 2020-09-10 13:39 | PDOC2 ---
GI CONSULT Date of Service: DATE: 09/10/20 TIME: 13:24 Reason For Consult: elevated LFTs HPI: HPI: 75 y/o female who we saw in 07/2020 for nausea and decreased appetite. Now intubated in ICU after code (asystole at home), found to be COVID-19 +. From past encounter: H/o reflux w/o dysphagia controlled w/ medication - we tried PPI in place of H2 edin last time. EGD and colonoscopy in [place] in 2009. Gave h/o diverticulitis. S/p cholecystectomy. No pancreas, liver, or PUD history. H/o ACD. Other records have mentioned hiatal hernia, gastritis, diverticulosis, hemorrhoids, and IBS-D. She also indicated some constipation last time. PMH: PMH: HTN, HLD, CAMILLA, ESRD on HD, depression, OA, DM, thyroid nodules, renal cysts cholecystectomy, tonsillectomy, hysterectomy, LAV fistula, thyroid biopsy ("atypical cells"), renal biopsy (global glomerulosclerosis) FH: Family History: No pertinent hx Social History: ALCOHOL: none Drugs: None ROS: unable to obtain Vitals: Vitals: Vital Signs Date Time Temp Pulse Resp B/P (MAP) Pulse Ox O2 Delivery O2 Flow Rate FiO2 09/10/20 11:25 100 Ventilator 09/10/20 06:27 74 20 137/72 (93) 09/10/20 04:31 99.1 15.0 99.1 Labs: Labs: Laboratory Tests Test 09/10/20 04:36 09/10/20 04:56 09/10/20 05:10 09/10/20 05:29 White Blood Count 7.8 x10^3/uL (4.0-11.0) Red Blood Count 3.07 x10^6/uL (3.50-5.40) Hemoglobin 9.4 g/dL (12.0-15.5) Hematocrit 29.4 % (36.0-47.0) Mean Corpuscular Volume 96 fL (79-100) Mean Corpuscular Hemoglobin 31 pg (25-35) Mean Corpuscular Hemoglobin Concent 32 g/dL (31-37) Red Cell Distribution Width 15.4 % (11.5-14.5) Platelet Count 156 x10^3/uL (140-400) Neutrophils (%) (Auto) 62 % (31-73) Lymphocytes (%) (Auto) 33 % (24-48) Monocytes (%) (Auto) 4 % (0-9) Eosinophils (%) (Auto) 1 % (0-3) Basophils (%) (Auto) 1 % (0-3) Neutrophils # (Auto) 4.8 x10^3/uL (1.8-7.7) Lymphocytes # (Auto) 2.6 x10^3/uL (1.0-4.8) Monocytes # (Auto) 0.3 x10^3/uL (0.0-1.1) Eosinophils # (Auto) 0.0 x10^3/uL (0.0-0.7) Basophils # (Auto) 0.1 x10^3/uL (0.0-0.2) Segmented Neutrophils % 51 % (35-66) Band Neutrophils % 4 % (0-9) Lymphocytes % 43 % (24-48) Monocytes % 2 % (0-10) Platelet Estimate Adequate (ADEQUATE) Prothrombin Time 16.8 SEC (11.7-14.0) Prothromb Time International Ratio 1.4 (0.8-1.1) Activated Partial Thromboplast Time 42 SEC (24-38) Sodium Level 141 mmol/L (136-145) Potassium Level 5.1 mmol/L (3.5-5.1) Chloride Level 102 mmol/L (98-107) Carbon Dioxide Level 20 mmol/L (21-32) Anion Gap 19 (6-14) 21 mmol/L (6-14) Blood Urea Nitrogen 58 mg/dL (7-20) Creatinine 6.8 mg/dL (0.6-1.0) Estimated GFR (Cockcroft-Gault) 7.1 BUN/Creatinine Ratio 9 (6-20) Glucose Level 374 mg/dL (70-99) 366 mg/dL (70-99) Lactic Acid Level 10.9 mmol/L (0.4-2.0) Calcium Level 7.9 mg/dL (8.5-10.1) Magnesium Level 2.3 mg/dL (1.8-2.4) Total Bilirubin 0.4 mg/dL (0.2-1.0) Aspartate Amino Transf (AST/SGOT) 601 U/L (15-37) Alanine Aminotransferase (ALT/SGPT) 621 U/L (14-59) Alkaline Phosphatase 121 U/L (46-116) Troponin I Quantitative 0.044 ng/mL (0.000-0.055) XW-Mxx-[id number]-Type Natriuretic Peptide 75817 pg/mL (0-449) Total Protein 5.4 g/dL (6.4-8.2) Albumin 3.1 g/dL (3.4-5.0) Albumin/Globulin Ratio 1.3 (1.0-1.7) Bedside Hemoglobin 10.2 g/dL (12-15) Bedside Hematocrit 30 % (36-40) Bedside Sodium 137 mmol/L (135-145) Bedside Potassium 4.8 mmol/L (3.5-5.0) Bedside Chloride 102 mmol/L (98-110) Bedside Total CO2 21 mmol/L (23-32) Bedside Blood Urea Nitrogen 59 mg/dL (8-26) Bedside Creatinine 6.4 mg/dL (0.5-1.4) Bedside Ionized Calcium (Xavier) 1.05 mmol/L (1.13-1.32) O2 Saturation 98 % (92-99) Arterial Blood pH 7.26 (7.35-7.45) Arterial Blood pH (Temp corrected) 7.26 Arterial Blood pCO2 at Patient Temp 37 mmHg (35-46) Arterial Blood pCO2 (Temp correct) 37 mmHg Arterial Blood pO2 at Patient Temp 171 mmHg (65-108) Arterial Blood pO2 (Temp corrected) 173 mmHg Arterial Blood HCO3 16 mmol/L (21-28) Arterial Blood Base Excess -10 mmol/L (-3-3) Oxyhemoglobin 97.2 % Methemoglobin 0.3 % (0.0-1.9) Carbon Monoxide, Quantitative 0.3 % (0.0-1.9) FiO2 100 SARS-CoV-2 Antigen (Rapid) Positive (NEGATIVE) Test 09/10/20 07:15 09/10/20 07:45 09/10/20 12:25 Lactic Acid Level 4.9 mmol/L (0.4-2.0) O2 Saturation 98 % (92-99) Arterial Blood pH 7.44 (7.35-7.45) Arterial Blood pCO2 at Patient Temp 32 mmHg (35-46) Arterial Blood pO2 at Patient Temp 205 mmHg (65-108) Arterial Blood HCO3 21 mmol/L (21-28) Arterial Blood Base Excess -3 mmol/L (-3-3) FiO2 60 Glucose (Fingerstick) 170 mg/dL (70-99) Allergies: Coded Allergies: lisinopril (Verified Allergy, Intermediate, 04/20/19) cough metformin (Verified Allergy, Intermediate, 04/20/19) sertraline (Verified Allergy, Intermediate, 04/20/19) Medications: Current Medications Medications (Trade) Dose Ordered Sig/Elfego Route PRN Reason Start Time Stop Time Status Last Admin Dose Admin Calcium Gluconate (Calcium Gluconate) 1,000 mg 1X ONCE IVP 09/10/20 05:00 09/10/20 05:01 DC 09/10/20 11:28 Heparin Sodium (Porcine) (Heparin Sodium) 5,000 unit Q12HR SQ 09/10/20 09:00 09/10/20 11:21 Ceftriaxone Sodium (Rocephin) 1 gm 1X ONCE IVP 09/10/20 09:00 09/10/20 09:01 DC 09/10/20 09:00 Azithromycin 250 ml @ 250 mls/hr 1X ONCE IV 09/10/20 09:00 09/10/20 09:59 DC 09/10/20 09:39 Remdesivir 200 mg/ Sodium Chloride 210 ml @ 210 mls/hr 1X ONCE IV 09/10/20 13:00 09/10/20 13:59 09/10/20 12:41 Doxycycline Hyclate 100 mg/ Dextrose 100 ml @ 50 mls/hr Q12HR IV 09/10/20 13:00 09/10/20 12:42 Imaging: Imaging: CXR Impression: 1. Endotracheal tube tip approaches the saida. Retraction by approximately [address] the tube tip at the level of the clavicles. 2. Enlargement of the cardiomediastinal silhouette and central vascular congestion. Hazy opacities throughout the right more so than left lungs and Rachelle B lines collectively making congestive heart failure/volume overload the most likely etiology for the appearance of the lungs. Recommend follow-up to confirm improvement. Head CT IMPRESSION: No acute abnormality. PE: GEN: intubated in COVID isolation - visual exam done LUNGS: vent HEART: RRR, ABD: non-distended NEURO/PSYCH: sedated A/P: A/P: S/p arrest, resp failure, COVID-19 infection ACD Lactic acidosis, elevated LFTs GERD CRC screen - reportedly normal in the past Diverticulosis H/o IBS Sp cholecystectomy ESRD on HD -- Elevated LFTs likely related to arrest. Follow these, continue support. Probab ly difficult to get liver imaging w/ COVID+ status. Change PPI to IV. NATALIA REYES Sep 10, 2020 13:39
--- NOTE | 2020-09-10 13:53 | CONS ---
DATE OF CONSULTATION: 09/10/2020 REQUESTING PHYSICIAN: Coltno Ferro MD REASON FOR CONSULTATION: Sepsis or possible infection. Also, COVID positive. HISTORY OF PRESENT ILLNESS: This is a 75-year-old -[place] female who actually herself call 911 for shortness of breath. The patient at that time, I did recommend that the patient was unresponsive. The patient was coded for a long time, intubated and currently she is intubated on a ventilator with multiple vasopressor support. The patient was in asystole when she was found. The patient here, she had a fever up to 99.1. Her white count has been normal. Lactic acid up to 10.9 and rapid COVID is positive. Chest x-ray showed pulmonary vascular congestion. CT head was unremarkable. The patient is receiving Rocephin and azithromycin. PAST MEDICAL HISTORY: Positive for end-stage renal disease on hemodialysis, hypertension, hyperlipidemia, congestive heart failure, diabetes mellitus, thyromegaly, hiatal hernia, obstructive sleep apnea, renal cyst. PAST SURGICAL HISTORY: The patient has had cholecystectomy, tonsillectomy, and hysterectomy. SOCIAL HISTORY: Negative for smoking, alcohol or illicit drug use. ALLERGIES: LISTED ALLERGIC TO LISINOPRIL, METFORMIN AND SERTRALINE. CURRENT MEDICATIONS: Reviewed. REVIEW OF SYSTEMS: As per HPI, all other systems reviewed are negative. PHYSICAL EXAMINATION: GENERAL: Unresponsive female on a ventilator, not in distress. Orally intubated. HEENT: Both pupils are mid dilated and fixed. NECK: Supple, no JVP, no lymphadenopathy. LUNGS: Decreased breath sounds. HEART: S1, S2 regular. No gallop or murmur. ABDOMEN: Soft, nontender, no organomegaly. EXTREMITIES: No edema, cyanosis. SKIN: Unremarkable. NEUROLOGIC: The patient is not responsive even to the painful stimuli. LABORATORY DATA: White count is 7.8, hemoglobin 9.4, platelets are 156,000. BUN and creatinine is 58 and 6.8. Her ALT, AST 601 and 621. Lactic acid 10.9. COVID positive and CT and chest x-ray as I mentioned. IMPRESSION: 1. COVID-19 positive. 2. Bilateral pulmonary infiltrate. 3. Status post cardiorespiratory arrest. 4. End-stage renal disease, on hemodialysis. 5. Congestive heart failure. 6. Lactic acidosis. 7. Diabetes. 8. Hyperlipidemia. RECOMMENDATIONS: Continue Rocephin and azithromycin. Supportive care and overall prognosis is poor. We will follow the cultures. Thank you very much, Dr. Ferro, for giving me the opportunity to participate in this patient's care. ANNA DAVIS MD DR: RACHEL/leslie JOB#: [id number] / [id number]
[2020-09-10] MEDS ORDERED: IV NORMAL SALINE 1000ML BAG 1,000 ML IV PRN ×2 (14:10)
[2020-09-10] MEDS ORDERED: ALBUMIN HUMAN 25% 200 ML IV PRN (14:15)
[2020-09-10] MEDS ORDERED: DIALYSIS PATIENT. MC PRN ×2 (14:15)
[2020-09-10] MEDS: methylPREDNISolone SOD SUCC PF 125 MG/2 ML VIAL. IV SCH ×2 (16:37→23:37)
[2020-09-10] MEDS: PANTOPRAZOLE IV PUSH 40 MG VIAL. IVP SCH (16:38)
[2020-09-11] VITALS (19 sets, daily range): BP systolic 0–207; BP diastolic 38–100
[2020-09-11 04:50] LABS: BASO % 0 % (0-3); EOS % 0 % (0-3); HEMATOCRIT 33.1 % (36.0-47.0); LYMPH # 0.5 x10^3/uL (1.0-4.8); LYMPH % 6 % (24-48); MEAN CORPUSCULAR HEMOGLOBIN 31 pg (25-35); MEAN CORPUSCULAR HGB CONC 33 g/dL (31-37); MEAN CORPUSCULAR VOLUME 93 fL (79-100); MONO # 0.3 x10^3/uL (0.0-1.1); MONO % 3 % (0-9); NEUT # 8.3 x10^3/uL (1.8-7.7); NEUT % 91 % (31-73); PLATELET COUNT 120 x10^3/uL (140-400); RED BLOOD COUNT 3.58 x10^6/uL (3.50-5.40); RED CELL DISTRIBUTION WIDTH 15.5 % (11.5-14.5); WHITE BLOOD COUNT 9.2 x10^3/uL (4.0-11.0)
[2020-09-11] MEDS: INSULIN LISPRO 300 UNITS/3 ML VIAL. SQ SCH ×3 (06:00→12:00)
--- NOTE | 2020-09-11 06:54 | RAD ---
Study: CR CHEST AP ONLY Indication: Verify ET tube placement. Comparison: 09/10/2020 Findings: Unchanged ET tube positioning which is again seen to be essentially at the saida and directed towards but not extending into the right mainstem bronchus. Enteric tube tip and sidehole are within the stomach. Enlarged cardiomediastinal silhouette. Atherosclerotic calcifications. Less confluent airspace opacities on the right but with persistent hazy attenuation at the lower third of the right lung. Previously seen infiltrate at the upper left hilum is less well visualized. Poorly the left lower lung is not well evaluated on this exam due to patient rotation and obscuration by the heart. Impression: 1. The endotracheal tube tip is again seen to be near the saida and directed towards the right mainstem bronchus. 2. Less confluent airspace opacities on the right and a less noticeable infiltrate at the upper left hilum though airspace disease persists on both sides. Possible development of bilateral pleural effusions but this could be artifactual from summation. Recommend attention on follow-up. Electronically signed by: BOB CASE MD (09/11/2020 6:51 AM) [id number]
[2020-09-11] MEDS: methylPREDNISolone SOD SUCC PF 125 MG/2 ML VIAL. IV SCH ×2 (07:38→13:22)
--- NOTE | 2020-09-11 07:46 | PDOC ---
Infectious Disease Note Subjective Subjective Patient is unresponsive ROS ROS No nausea vomiting diarrhea Vital Sign Vital Signs Vital Signs Date Time Temp Pulse Resp B/P (MAP) Pulse Ox O2 Delivery O2 Flow Rate FiO2 09/11/20 04:10 100 Ventilator 09/11/20 01:00 76 18 199/95 (129) 60.0 09/11/20 00:00 97.5 97.5 Physical Exam PHYSICAL EXAM GENERAL: Unresponsive female on a ventilator, not in distress. Orally intubated. HEENT: Both pupils are mid dilated and fixed. NECK: Supple, no JVP, no lymphadenopathy. LUNGS: Decreased breath sounds. HEART: S1, S2 regular. No gallop or murmur. ABDOMEN: Soft, nontender, no organomegaly. EXTREMITIES: No edema, cyanosis. SKIN: Unremarkable. NEUROLOGIC: The patient is not responsive even to the painful stimuli. Labs Lab Laboratory Tests Test 09/10/20 12:25 09/10/20 17:11 09/11/20 00:24 09/11/20 04:15 Glucose (Fingerstick) 170 mg/dL (70-99) 146 mg/dL (70-99) 196 mg/dL (70-99) White Blood Count 9.2 x10^3/uL (4.0-11.0) Red Blood Count 3.58 x10^6/uL (3.50-5.40) Hemoglobin 11.0 g/dL (12.0-15.5) Hematocrit 33.1 % (36.0-47.0) Mean Corpuscular Volume 93 fL (79-100) Mean Corpuscular Hemoglobin 31 pg (25-35) Mean Corpuscular Hemoglobin Concent 33 g/dL (31-37) Red Cell Distribution Width 15.5 % (11.5-14.5) Platelet Count 120 x10^3/uL (140-400) Neutrophils (%) (Auto) 91 % (31-73) Lymphocytes (%) (Auto) 6 % (24-48) Monocytes (%) (Auto) 3 % (0-9) Eosinophils (%) (Auto) 0 % (0-3) Basophils (%) (Auto) 0 % (0-3) Neutrophils # (Auto) 8.3 x10^3/uL (1.8-7.7) Lymphocytes # (Auto) 0.5 x10^3/uL (1.0-4.8) Monocytes # (Auto) 0.3 x10^3/uL (0.0-1.1) Eosinophils # (Auto) 0.0 x10^3/uL (0.0-0.7) Basophils # (Auto) 0.0 x10^3/uL (0.0-0.2) Test 09/11/20 07:32 Glucose (Fingerstick) 235 mg/dL (70-99) Micro Microbiology 09/10/20 Blood Culture - Preliminary, Resulted NO GROWTH AFTER 1 DAY Objective Assessment IMPRESSION: 1. COVID-19 positive. 2. Bilateral pulmonary infiltrate. 3. Status post cardiorespiratory arrest. 4. End-stage renal disease, on hemodialysis. 5. Congestive heart failure. 6. Lactic acidosis. 7. Diabetes. 8. Hyperlipidemia. 9 respiratory failure Plan Plan of Care Continue supportive care Continue Rocephin and doxy Continue steroids Prognosis poor ANNA DAVIS MD Sep 11, 2020 07:46
--- NOTE | 2020-09-11 08:19 | PDOC ---
PULMONARY PROGRESS NOTES DATE: 09/11/20 TIME: 08:19 Subjective Pt. remain son vent support 60% and PEEP 5 unresponsive, no cough, no gag no other concerns from nursing Vitals Vital Signs Date Time Temp Pulse Resp B/P (MAP) Pulse Ox O2 Delivery O2 Flow Rate FiO2 09/11/20 07:45 97.5 85 18 191/85 97.5 09/11/20 06:00 100 Ventilator 60.0 Comments Pt. seen during COVID pandemic, visual exam preformed RRR vent no accessory muscle use no obvious rash Labs Laboratory Tests Test 09/10/20 04:36 09/10/20 04:56 09/10/20 05:10 09/10/20 05:29 White Blood Count 7.8 x10^3/uL (4.0-11.0) Red Blood Count 3.07 x10^6/uL (3.50-5.40) Hemoglobin 9.4 g/dL (12.0-15.5) Hematocrit 29.4 % (36.0-47.0) Mean Corpuscular Volume 96 fL (79-100) Mean Corpuscular Hemoglobin 31 pg (25-35) Mean Corpuscular Hemoglobin Concent 32 g/dL (31-37) Red Cell Distribution Width 15.4 % (11.5-14.5) Platelet Count 156 x10^3/uL (140-400) Neutrophils (%) (Auto) 62 % (31-73) Lymphocytes (%) (Auto) 33 % (24-48) Monocytes (%) (Auto) 4 % (0-9) Eosinophils (%) (Auto) 1 % (0-3) Basophils (%) (Auto) 1 % (0-3) Neutrophils # (Auto) 4.8 x10^3/uL (1.8-7.7) Lymphocytes # (Auto) 2.6 x10^3/uL (1.0-4.8) Monocytes # (Auto) 0.3 x10^3/uL (0.0-1.1) Eosinophils # (Auto) 0.0 x10^3/uL (0.0-0.7) Basophils # (Auto) 0.1 x10^3/uL (0.0-0.2) Segmented Neutrophils % 51 % (35-66) Band Neutrophils % 4 % (0-9) Lymphocytes % 43 % (24-48) Monocytes % 2 % (0-10) Platelet Estimate Adequate (ADEQUATE) Prothrombin Time 16.8 SEC (11.7-14.0) Prothromb Time International Ratio 1.4 (0.8-1.1) Activated Partial Thromboplast Time 42 SEC (24-38) Sodium Level 141 mmol/L (136-145) Potassium Level 5.1 mmol/L (3.5-5.1) Chloride Level 102 mmol/L (98-107) Carbon Dioxide Level 20 mmol/L (21-32) Anion Gap 19 (6-14) 21 mmol/L (6-14) Blood Urea Nitrogen 58 mg/dL (7-20) Creatinine 6.8 mg/dL (0.6-1.0) Estimated GFR (Cockcroft-Gault) 7.1 BUN/Creatinine Ratio 9 (6-20) Glucose Level 374 mg/dL (70-99) 366 mg/dL (70-99) Lactic Acid Level 10.9 mmol/L (0.4-2.0) Calcium Level 7.9 mg/dL (8.5-10.1) Magnesium Level 2.3 mg/dL (1.8-2.4) Total Bilirubin 0.4 mg/dL (0.2-1.0) Aspartate Amino Transf (AST/SGOT) 601 U/L (15-37) Alanine Aminotransferase (ALT/SGPT) 621 U/L (14-59) Alkaline Phosphatase 121 U/L (46-116) Troponin I Quantitative 0.044 ng/mL (0.000-0.055) DM-Nfn-Y-Type Natriuretic Peptide 96804 pg/mL (0-449) Total Protein 5.4 g/dL (6.4-8.2) Albumin 3.1 g/dL (3.4-5.0) Albumin/Globulin Ratio 1.3 (1.0-1.7) Bedside Hemoglobin 10.2 g/dL (12-15) Bedside Hematocrit 30 % (36-40) Bedside Sodium 137 mmol/L (135-145) Bedside Potassium 4.8 mmol/L (3.5-5.0) Bedside Chloride 102 mmol/L (98-110) Bedside Total CO2 21 mmol/L (23-32) Bedside Blood Urea Nitrogen 59 mg/dL (8-26) Bedside Creatinine 6.4 mg/dL (0.5-1.4) Bedside Ionized Calcium (Xavier) 1.05 mmol/L (1.13-1.32) O2 Saturation 98 % (92-99) Arterial Blood pH 7.26 (7.35-7.45) Arterial Blood pH (Temp corrected) 7.26 Arterial Blood pCO2 at Patient Temp 37 mmHg (35-46) Arterial Blood pCO2 (Temp correct) 37 mmHg Arterial Blood pO2 at Patient Temp 171 mmHg (65-108) Arterial Blood pO2 (Temp corrected) 173 mmHg Arterial Blood HCO3 16 mmol/L (21-28) Arterial Blood Base Excess -10 mmol/L (-3-3) Oxyhemoglobin 97.2 % Methemoglobin 0.3 % (0.0-1.9) Carbon Monoxide, Quantitative 0.3 % (0.0-1.9) FiO2 100 SARS-CoV-2 Antigen (Rapid) Positive (NEGATIVE) Test 09/10/20 07:15 09/10/20 07:45 09/10/20 12:25 09/10/20 17:11 Lactic Acid Level 4.9 mmol/L (0.4-2.0) O2 Saturation 98 % (92-99) Arterial Blood pH 7.44 (7.35-7.45) Arterial Blood pCO2 at Patient Temp 32 mmHg (35-46) Arterial Blood pO2 at Patient Temp 205 mmHg (65-108) Arterial Blood HCO3 21 mmol/L (21-28) Arterial Blood Base Excess -3 mmol/L (-3-3) FiO2 60 Glucose (Fingerstick) 170 mg/dL (70-99) 146 mg/dL (70-99) Test 09/11/20 00:24 09/11/20 04:15 09/11/20 07:32 Glucose (Fingerstick) 196 mg/dL (70-99) 235 mg/dL (70-99) White Blood Count 9.2 x10^3/uL (4.0-11.0) Red Blood Count 3.58 x10^6/uL (3.50-5.40) Hemoglobin 11.0 g/dL (12.0-15.5) Hematocrit 33.1 % (36.0-47.0) Mean Corpuscular Volume 93 fL (79-100) Mean Corpuscular Hemoglobin 31 pg (25-35) Mean Corpuscular Hemoglobin Concent 33 g/dL (31-37) Red Cell Distribution Width 15.5 % (11.5-14.5) Platelet Count 120 x10^3/uL (140-400) Neutrophils (%) (Auto) 91 % (31-73) Lymphocytes (%) (Auto) 6 % (24-48) Monocytes (%) (Auto) 3 % (0-9) Eosinophils (%) (Auto) 0 % (0-3) Basophils (%) (Auto) 0 % (0-3) Neutrophils # (Auto) 8.3 x10^3/uL (1.8-7.7) Lymphocytes # (Auto) 0.5 x10^3/uL (1.0-4.8) Monocytes # (Auto) 0.3 x10^3/uL (0.0-1.1) Eosinophils # (Auto) 0.0 x10^3/uL (0.0-0.7) Basophils # (Auto) 0.0 x10^3/uL (0.0-0.2) Laboratory Tests Test 09/10/20 12:25 09/10/20 17:11 09/11/20 00:24 09/11/20 04:15 Glucose (Fingerstick) 170 mg/dL (70-99) 146 mg/dL (70-99) 196 mg/dL (70-99) White Blood Count 9.2 x10^3/uL (4.0-11.0) Red Blood Count 3.58 x10^6/uL (3.50-5.40) Hemoglobin 11.0 g/dL (12.0-15.5) Hematocrit 33.1 % (36.0-47.0) Mean Corpuscular Volume 93 fL (79-100) Mean Corpuscular Hemoglobin 31 pg (25-35) Mean Corpuscular Hemoglobin Concent 33 g/dL (31-37) Red Cell Distribution Width 15.5 % (11.5-14.5) Platelet Count 120 x10^3/uL (140-400) Neutrophils (%) (Auto) 91 % (31-73) Lymphocytes (%) (Auto) 6 % (24-48) Monocytes (%) (Auto) 3 % (0-9) Eosinophils (%) (Auto) 0 % (0-3) Basophils (%) (Auto) 0 % (0-3) Neutrophils # (Auto) 8.3 x10^3/uL (1.8-7.7) Lymphocytes # (Auto) 0.5 x10^3/uL (1.0-4.8) Monocytes # (Auto) 0.3 x10^3/uL (0.0-1.1) Eosinophils # (Auto) 0.0 x10^3/uL (0.0-0.7) Basophils # (Auto) 0.0 x10^3/uL (0.0-0.2) Test 09/11/20 07:32 Glucose (Fingerstick) 235 mg/dL (70-99) Medications Active Scripts Medications Dose Route/Sig Max Daily Dose Days Date Category Ondansetron Hcl 4 Mg Tablet 4 Mg PO BID PRN 08/02/20 Rx Pantoprazole Sodium (Pantoprazole Sodium) 40 Mg Tablet.dr 40 Mg PO DAILYAC 30 08/02/20 Rx Hydralazine Hcl 25 Mg Tablet 1 Tab PO TID 07/31/20 Reported Isosorbide Mononitrate Er (Isosorbide Mononitrate) 60 Mg Tab.er.24h 1 Tab PO DAILY 05/06/19 Rx Aspirin Ec (Aspirin) 81 Mg Tablet.dr 81 Mg PO DAILYWBKFT 05/03/19 Rx Diltiazem 24Hr Cd (Diltiazem HCl) 240 Mg Cap.er.24h 240 Mg PO DAILY 05/03/19 Rx Coreg (Carvedilol) 25 Mg Tablet 1 Tab PO BID 10/31/16 Rx Lexapro (Escitalopram Oxalate) 5 Mg Tablet 1 Tab PO DAILY 10/29/16 Reported Amlodipine Besylate 10 Mg Tablet 10 Mg PO DAILY 10/29/16 Reported Lipitor (Atorvastatin Calcium) 40 Mg Tablet 1 Tab PO DAILY 10/29/16 Reported Comments Impression: 1. The endotracheal tube tip is again seen to be near the saida and directed towards the right mainstem bronchus. 2. Less confluent airspace opacities on the right and a less noticeable infiltrate at the upper left hilum though airspace disease persists on both sides. Possible development of bilateral pleural effusions but this could be artifactual from summation. Recommend attention on follow-up. Impression . IMPRESSION: 1. Acute hypoxemic respiratory failure secondary to [id number] cardiopulmonary arrest. 2. Rvj-zt-[id number] cardiopulmonary arrest. 3. Positive rapid test for COVID. 4. COVID-19 viral pneumonia. 5. Possible COVID-19 viral sepsis. 6. Abnormal x-ray compatible with congestive heart failure, bacterial pneumonia, and COVID-19 viral pneumonia. 7. End-stage renal disease, on hemodialysis. 8. Type 2 diabetes. 9. Diverticulosis. 10. Obstructive sleep apnea. 11. History of cardiomyopathy, ejection fraction of 45%. 12. Shock liver. 13. Lactic acidosis secondary to cardiopulmonary arrest. Plan . Continue current vent support fi02 60% and peep of 5 Follow CXR and ABG Consult neurology for formal evaluation, lack of reflexes on exam Follow ID rec for ABX: doxy/Rocephin Cont. IV steroids with taper Follow cardiology recs-- known EF 45% S/P plasma and finish full course of remdesivir Follow nephrology recs for HD - M-W- DVT/GI PPX : protonix/heparin D/W RN and RT Pt. is DNR Critical Care Time 0730-0800AM BRIGETTE SNOW MD Sep 11, 2020 08:19
[2020-09-11 08:24] LABS: BASE EXCESS ABG 0 mmol/L (-3-3); HCO3 ABG 21 mmol/L (21-28); PCO2 ABG 25 mmHg (35-46); PO2 ABG 166 mmHg (65-108); SAT O2 ABG 98 % (92-99)
--- NOTE | 2020-09-11 08:50 | PDOC ---
IM PROGRESS NOTES- Subjective Subjective Not responsive. Unable to do systems review. Objective Vitals/I&O Vital Signs Date Time Temp Pulse Resp B/P (MAP) Pulse Ox O2 Delivery O2 Flow Rate FiO2 09/11/20 08:15 100 Ventilator 09/11/20 08:03 97.6 84 18 203/75 97.6 09/11/20 06:00 60.0 I & O 09/10/20 09/10/20 09/11/20 15:00 23:00 07:00 Intake Total 460 ml 600 ml Output Total 70 ml 350 ml Balance 460 ml 530 ml -350 ml Physical Exam Physical Exam GENERAL: The patient is not responsive, not in acute distress. EYES: Dilated and fixed HENT: Unable to do full exam as she is on mechanical ventilation. NECK: Thyroid more enlarged on the right side. LUNGS: Decreased breath sounds at bases. Occasional coarse breath sounds. CARDIOVASCULAR: S1, S2 regular. ABDOMEN: Soft, non tender, bowel sounds present. EXTREMITIES: Trace to 1+ edema. CENTRAL NERVOUS SYSTEM: Not responsive. Labs Laboratory Tests Test 09/10/20 12:25 09/10/20 17:11 09/11/20 00:24 09/11/20 04:15 Glucose (Fingerstick) 170 mg/dL (70-99) H 146 mg/dL (70-99) H 196 mg/dL (70-99) H White Blood Count 9.2 x10^3/uL (4.0-11.0) Red Blood Count 3.58 x10^6/uL (3.50-5.40) Hemoglobin 11.0 g/dL (12.0-15.5) L Hematocrit 33.1 % (36.0-47.0) L Mean Corpuscular Volume 93 fL (79-100) Mean Corpuscular Hemoglobin 31 pg (25-35) Mean Corpuscular Hemoglobin Concent 33 g/dL (31-37) Red Cell Distribution Width 15.5 % (11.5-14.5) H Platelet Count 120 x10^3/uL (140-400) L Neutrophils (%) (Auto) 91 % (31-73) H Lymphocytes (%) (Auto) 6 % (24-48) L Monocytes (%) (Auto) 3 % (0-9) Eosinophils (%) (Auto) 0 % (0-3) Basophils (%) (Auto) 0 % (0-3) Neutrophils # (Auto) 8.3 x10^3/uL (1.8-7.7) H Lymphocytes # (Auto) 0.5 x10^3/uL (1.0-4.8) L Monocytes # (Auto) 0.3 x10^3/uL (0.0-1.1) Eosinophils # (Auto) 0.0 x10^3/uL (0.0-0.7) Basophils # (Auto) 0.0 x10^3/uL (0.0-0.2) Test 09/11/20 07:32 Glucose (Fingerstick) 235 mg/dL (70-99) H Laboratory Tests 09/11/20 04:15 Meds Current Medications Medications (Trade) Dose Ordered Sig/Elfego Route PRN Reason Start Time Stop Time Status Last Admin Dose Admin Chlorhexidine Gluconate (Peridex) 15 ml BID MM 09/10/20 09:00 09/10/20 23:37 Heparin Sodium (Porcine) (Heparin Sodium) 5,000 unit Q12HR SQ 09/10/20 09:00 09/10/20 23:39 Ceftriaxone Sodium (Rocephin) 1 gm 1X ONCE IVP 09/10/20 09:00 09/10/20 09:01 DC 09/10/20 09:00 Azithromycin 250 ml @ 250 mls/hr 1X ONCE IV 09/10/20 09:00 09/10/20 09:59 DC 09/10/20 09:39 Remdesivir 200 mg/ Sodium Chloride 210 ml @ 210 mls/hr 1X ONCE IV 09/10/20 13:00 09/10/20 13:59 DC 09/10/20 12:41 Doxycycline Hyclate 100 mg/ Dextrose 100 ml @ 50 mls/hr Q12HR IV 09/10/20 13:00 09/10/20 23:35 Methylprednisolone Sodium Succinate (SOLU-Medrol 125MG VIAL) 125 mg Q8HRS IV 09/10/20 13:00 09/11/20 07:38 Pantoprazole Sodium (PROTONIX VIAL for IV PUSH) 40 mg DAILYAC IVP 09/10/20 14:00 09/10/20 16:38 Assessment Assessment 1. Acute cardiac arrest with status post CPR, ROSC. 2. Acute pulmonary edema. 3. End-stage renal disease, on hemodialysis. 4. Acute on chronic diastolic congestive heart failure. 5. COVID-19 infection. 6. Lactic acidosis, likely due to cardiac arrest. 7. Elevated liver function tests, possibly shock liver. 8. Diabetes mellitus, not controlled, hyperglycemia, may be due to a recent cardiac arrest and resuscitation. The patient used to take Levemir 20 units subcutaneous daily previously, which had to be adjusted last time due to hypoglycemia. 9. Hyperlipidemia. 10. Arthritis. 11. Complex renal cysts. 12. Depression. 13. Diverticulosis. 14. Hiatal hernia. 15. Gastritis 16. Hemorrhoids. 17. Severe obstructive sleep apnea with CPAP and mild hypertension. PLAN: Admit to ICU. We will keep in isolation due to COVID infection. Consult Dr. Thomas for Cardiology evaluation and management, Dr. Rivera for Pulmonary evaluation and management, Dr. Landen Garcia for Infectious Disease evaluation and management, and Dr. Ramos for GI evaluation and management. Consult Dr. Padilla for nephrology evaluation and management. We will hold most of the medications. The patient is not a candidate for hypothermia protocol due to COVID-19 infection as well as other factors per Cardiology. Continue Critical Care in ICU. Prognosis of this patient is extremely poor due to her multiple medical problems. COVID-19 pneumonia Was given convalescent plasma yesterday. She has been started on IV Solu- Medrol, remdesivir, Rocephin and doxycycline. Lactic acid level is improving. As per her advanced directives will make her DNR. Accelerated hypertension Diabetes mellitus-he has hyperglycemia but is improving. Elevated LFTs-likely shock liver Advanced directive reviewed. Will get neurology consultation to assess for anoxic encephalopathy. Also talked to the patient's friend Juliet Delgado. Condition, treatment and options extensively discussed with her. Prognosis of this patient is extremely poor. She is agreeable to make her a DNR now and I also concur with that because of patient's severe anoxic encephalopathy clinically. Plan Plan For more details regarding further plans, please refer to the orders. Justifications for Admission Other Justification DRE CEE MD Sep 11, 2020 08:50
[2020-09-11 09:00] LABS: FIO2 ABG 60
[2020-09-11] MEDS: CHLORHEXIDINE 0.12% 15 ML MOUTHWASH. MM SCH (09:00)
--- NOTE | 2020-09-11 09:29 | PDOC ---
DATE OF SERVICE: DOS: DATE: 09/11/20 TIME: 09:14 SUBJECTIVE ROS F/up for ESRD on HD Pt remains ? sedated and intubated on the VENT OBJECTIVE Vital Signs Vital Signs Date Time Temp Pulse Resp B/P (MAP) Pulse Ox O2 Delivery O2 Flow Rate FiO2 09/11/20 08:15 100 Ventilator 09/11/20 08:03 97.6 84 18 203/75 97.6 09/11/20 06:00 60.0 I & 0 Intake and Output 09/11/20 07:00 Intake Total 1060 ml Output Total 420 ml Balance 640 ml Intake IV Total 1060 ml Output Urine Total 420 ml # Bowel Movements 1 PHYSICAL EXAM Physical Exam Remains intubated on the VENT Exam is limited due to COVID-19 precautions. I have reviewed PE as performed by other providers and corroborated that with CABLE OPERATOR RN reports min to no Neurological response despite being off of sedation; arron no GAG DIAGNOSIS/ASSESSMENT Assessment & Plan ESRD : Current FLuid and E-lyte status does not necessitate emergent need for Dialysis. Will re-evaluate for Dialysis in am and continue on MWF schedule. Wide anion gap metabolic acidosis no labs today so will check same and lactate for resolution Pulmonary edema on chest x-ray: better after yesterday's Ultrafiltration. Anemia: We will start Epogen if hemoglobin trends below 10. Transfuse with next HD as needed. HTN: Current BP meds reviewed. Resume Home BP Meds if OK with Neurology (anticipate consult to determine ? ANoxia encephalopahty) Suspect Anoxic Encephalopathy: I SUspect she has a very low likelihood for meaningful recovery Watch phosphorus trend for now. Continue home regimen of binders Status post cardiac arrest: Await cardiology evaluation and management. COVID-19 positive Discussed Plan of Care and prognosis etc. at length with ICU nurse. This portends a poor prognosis COMMENT/RELEVANT DATA Meds Current Medications Medications (Trade) Dose Ordered Sig/Elfego Start Time Stop Time Status Last Admin Dose Admin Acetaminophen (Tylenol) 650 mg PRN Q6HRS PRN 09/10/20 07:30 Albumin Human 200 ml @ 200 mls/hr 1X PRN PRN 09/10/20 14:15 09/10/20 20:14 DC Azithromycin 250 ml @ 250 mls/hr 1X ONCE 09/10/20 09:00 09/10/20 09:59 DC 09/10/20 09:39 Calcium Gluconate (Calcium Gluconate) 1,000 mg 1X ONCE 09/10/20 05:00 09/10/20 05:01 DC 09/10/20 11:28 Ceftriaxone Sodium (Rocephin) 1 gm Q24H 09/10/20 13:00 Chlorhexidine Gluconate (Peridex) 15 ml BID 09/10/20 09:00 09/10/20 23:37 Doxycycline Hyclate 100 mg/ Dextrose 100 ml @ 50 mls/hr Q12HR 09/10/20 13:00 09/10/20 23:35 Fentanyl Citrate 30 ml @ 0 mls/hr CONT PRN 09/10/20 07:30 Heparin Sodium (Porcine) (Heparin Sodium) 5,000 unit Q12HR 09/10/20 09:00 09/10/20 23:39 Info (PHARMACY MONITORING -- do not chart) 1 each PRN DAILY PRN 09/10/20 14:15 09/10/20 14:19 DC Insulin Human Lispro (HumaLOG) 0-8 UNITS Q6HRS 09/10/20 08:00 Methylprednisolone Sodium Succinate (SOLU-Medrol 125MG VIAL) 125 mg Q8HRS 09/10/20 13:00 09/11/20 07:38 Morphine Sulfate (Morphine Sulfate) 4 mg PRN Q1HR PRN 09/10/20 07:15 Norepinephrine Bitartrate 8 mg/ Dextrose 258 ml @ 16.062 mls/ hr CONT PRN 09/10/20 10:30 Pantoprazole Sodium (PROTONIX VIAL for IV PUSH) 40 mg DAILYAC 09/10/20 14:00 09/10/20 16:38 Pantoprazole Sodium (Protonix) 40 mg DAILYAC 09/10/20 07:30 09/10/20 13:41 DC Remdesivir 100 mg/ Sodium Chloride 230 ml @ 460 mls/hr Q24H 09/11/20 13:00 09/14/20 13:29 Remdesivir 200 mg/ Sodium Chloride 210 ml @ 210 mls/hr 1X ONCE 09/10/20 13:00 09/10/20 13:59 DC 09/10/20 12:41 Sodium Chloride 1,000 ml @ 400 mls/hr Q2H30M PRN 09/10/20 14:10 09/11/20 02:09 DC Lab Laboratory Tests Test 09/10/20 12:25 09/10/20 17:11 09/11/20 00:24 09/11/20 04:15 Glucose (Fingerstick) 170 mg/dL (70-99) 146 mg/dL (70-99) 196 mg/dL (70-99) White Blood Count 9.2 x10^3/uL (4.0-11.0) Red Blood Count 3.58 x10^6/uL (3.50-5.40) Hemoglobin 11.0 g/dL (12.0-15.5) Hematocrit 33.1 % (36.0-47.0) Mean Corpuscular Volume 93 fL (79-100) Mean Corpuscular Hemoglobin 31 pg (25-35) Mean Corpuscular Hemoglobin Concent 33 g/dL (31-37) Red Cell Distribution Width 15.5 % (11.5-14.5) Platelet Count 120 x10^3/uL (140-400) Neutrophils (%) (Auto) 91 % (31-73) Lymphocytes (%) (Auto) 6 % (24-48) Monocytes (%) (Auto) 3 % (0-9) Eosinophils (%) (Auto) 0 % (0-3) Basophils (%) (Auto) 0 % (0-3) Neutrophils # (Auto) 8.3 x10^3/uL (1.8-7.7) Lymphocytes # (Auto) 0.5 x10^3/uL (1.0-4.8) Monocytes # (Auto) 0.3 x10^3/uL (0.0-1.1) Eosinophils # (Auto) 0.0 x10^3/uL (0.0-0.7) Basophils # (Auto) 0.0 x10^3/uL (0.0-0.2) Test 09/11/20 07:32 09/11/20 08:15 Glucose (Fingerstick) 235 mg/dL (70-99) O2 Saturation 98 % (92-99) Arterial Blood pH 7.55 (7.35-7.45) Arterial Blood pCO2 at Patient Temp 25 mmHg (35-46) Arterial Blood pO2 at Patient Temp 166 mmHg (65-108) Arterial Blood HCO3 21 mmol/L (21-28) Arterial Blood Base Excess 0 mmol/L (-3-3) FiO2 60 Results All relevant outside records, renal labs, imaging studies, telemetry/EKG's were reviewed. Other Impression: 1. The endotracheal tube tip is again seen to be near the saida and directed towards the right mainstem bronchus. 2. Less confluent airspace opacities on the right and a less noticeable infiltrate at the upper left hilum though airspace disease persists on both sides. Possible development of bilateral pleural effusions but this could be artifactual from summation. Recommend attention on follow-up. Justicifation of Admission Dx: Justifications for Admission: Justification of Admission Dx: Yes GLADYS DAVIS MD Sep 11, 2020 09:28
[2020-09-11] MEDS ORDERED: MAGNESIUM SULFATE 2GM 50 ML IV PRN (09:30)
[2020-09-11] MEDS: PANTOPRAZOLE IV PUSH 40 MG VIAL. IVP SCH (09:37)
[2020-09-11] MEDS: DOXYCYCLINE HYCLATE 100 MG in IV DEXTROSE 5% 100ML 100 ML IV SCH (09:38)
[2020-09-11] MEDS: HEPARIN for SUB-Q USE 5,000 UNIT/ML VIAL. SQ SCH (09:47)
[2020-09-11 10:27] LABS: ALBUMIN 3.2 g/dL (3.4-5.0); ALBUMIN/GLOBULIN RATIO 1.3 (1.0-1.7); CALCIUM 8.7 mg/dL (8.5-10.1); GFR 13.1; POTASSIUM 3.4 mmol/L (3.5-5.1); TOTAL BILIRUBIN 0.7 mg/dL (0.2-1.0); TOTAL PROTEIN 5.6 g/dL (6.4-8.2)
[2020-09-11] MEDS ORDERED: LABETALOL 20 MG/4 ML DISP.SYRIN. IVP PRN (10:30)
--- NOTE | 2020-09-11 10:39 | PDOC ---
RAUL MCCLENDON AUTOMATION TECHNOLOGIST 09/11/20 1039: CARDIO Progress Notes Date and Time Date of Service 09/11/2020 Time of Evaluation 0910 Subjective Subjective: Other (unresponsive) Vitals Vitals Vital Signs Date Time Temp Pulse Resp B/P (MAP) Pulse Ox O2 Delivery O2 Flow Rate FiO2 09/11/20 08:15 100 Ventilator 09/11/20 08:03 97.6 84 18 203/75 97.6 09/11/20 06:00 60.0 Weight Weight [ ] Input and Output Intake and Output Intake and Output 09/11/20 07:00 Intake Total 1060 ml Output Total 420 ml Balance 640 ml Intake IV Total 1060 ml Output Urine Total 420 ml # Bowel Movements 1 Laboratory Labs Laboratory Tests Test 09/10/20 12:25 09/10/20 17:11 09/11/20 00:24 09/11/20 04:15 Glucose (Fingerstick) 170 mg/dL (70-99) 146 mg/dL (70-99) 196 mg/dL (70-99) White Blood Count 9.2 x10^3/uL (4.0-11.0) Red Blood Count 3.58 x10^6/uL (3.50-5.40) Hemoglobin 11.0 g/dL (12.0-15.5) Hematocrit 33.1 % (36.0-47.0) Mean Corpuscular Volume 93 fL (79-100) Mean Corpuscular Hemoglobin 31 pg (25-35) Mean Corpuscular Hemoglobin Concent 33 g/dL (31-37) Red Cell Distribution Width 15.5 % (11.5-14.5) Platelet Count 120 x10^3/uL (140-400) Neutrophils (%) (Auto) 91 % (31-73) Lymphocytes (%) (Auto) 6 % (24-48) Monocytes (%) (Auto) 3 % (0-9) Eosinophils (%) (Auto) 0 % (0-3) Basophils (%) (Auto) 0 % (0-3) Neutrophils # (Auto) 8.3 x10^3/uL (1.8-7.7) Lymphocytes # (Auto) 0.5 x10^3/uL (1.0-4.8) Monocytes # (Auto) 0.3 x10^3/uL (0.0-1.1) Eosinophils # (Auto) 0.0 x10^3/uL (0.0-0.7) Basophils # (Auto) 0.0 x10^3/uL (0.0-0.2) Test 09/11/20 07:32 09/11/20 08:15 09/11/20 09:55 Glucose (Fingerstick) 235 mg/dL (70-99) O2 Saturation 98 % (92-99) Arterial Blood pH 7.55 (7.35-7.45) Arterial Blood pCO2 at Patient Temp 25 mmHg (35-46) Arterial Blood pO2 at Patient Temp 166 mmHg (65-108) Arterial Blood HCO3 21 mmol/L (21-28) Arterial Blood Base Excess 0 mmol/L (-3-3) FiO2 60 Sodium Level 146 mmol/L (136-145) Potassium Level 3.4 mmol/L (3.5-5.1) Chloride Level 105 mmol/L (98-107) Carbon Dioxide Level 24 mmol/L (21-32) Anion Gap 17 (6-14) Blood Urea Nitrogen 38 mg/dL (7-20) Creatinine 4.0 mg/dL (0.6-1.0) Estimated GFR (Cockcroft-Gault) 13.1 BUN/Creatinine Ratio 10 (6-20) Glucose Level 264 mg/dL (70-99) Calcium Level 8.7 mg/dL (8.5-10.1) Magnesium Level 2.0 mg/dL (1.8-2.4) Total Bilirubin 0.7 mg/dL (0.2-1.0) Aspartate Amino Transf (AST/SGOT) 436 U/L (15-37) Alanine Aminotransferase (ALT/SGPT) 514 U/L (14-59) Alkaline Phosphatase 125 U/L (46-116) Total Protein 5.6 g/dL (6.4-8.2) Albumin 3.2 g/dL (3.4-5.0) Albumin/Globulin Ratio 1.3 (1.0-1.7) Microbiology Micro Microbiology 09/10/20 Blood Culture - Preliminary, Resulted NO GROWTH AFTER 1 DAY Physical Exam HEENT: Neck Supple W Full Motion Chest: Symmetric LUNGS: Other (diminished; intubated/vent) Heart: RRR (SR with PACs) Abdomen: Other (soft) Neurology: other (unresponsive) Assessment Assessment 1. Asystolic cardioresp arrest in the setting of COVID PNA 20 min approx to ROSC. No significnat arrhythmias so far. Intubated/vent 2. ESRD 3. Known history of CMP, EF 45% 4. Shock liver 5. Metabolic derangements with lactic acidosis due to arrest 6. Anoxic encephalopathy 7. HTN urgency Recommendations 1. Supportive care with treatment of COVID 2. No acute indication from CV perspective for hypothermia protocol, defer to pulmonary and primary. Furthermore, we do not yet know effect of hypothermia in covid patients. 3. Poor prognosis. Will obtain TTE prior to DC if any meaningful neurological recovery. Labetolol IV PRN. IV lopressor Justicifation of Admission Dx: Justifications for Admission: Justification of Admission Dx: Yes ODELL PELAYO MD 09/11/20 1408: CARDIO Progress Notes Plan Plan The patient was seen and interviewed as well as examined at the bedside. The chart was reviewed. The case was discussed. Agree with the plan of care. RAUL MCCLENDON APRN Sep 11, 2020 10:39 ODELL PELAYO MD Sep 11, 2020 14:08
[2020-09-11] MEDS ORDERED: METOPROLOL TARTRATE 5 MG/5 ML VIAL. IVP SCH (12:00)
--- NOTE | 2020-09-11 12:06 | NUR ---
SS following up with discharge planning. SS reviewed pt chart and discussed with pt RN. Pt remains on the vent at this time at 40%. COVID19 positive. Pt on IV Rocephin. Per RN, pt is unresponsive. DNR. Dr. Dwyer consulted. SS will continue to follow for discharge planning.
--- NOTE | 2020-09-11 12:23 | PDOC ---
Date of Service: DATE: 09/11/20 TIME: 12:20 Objective: Objective: D/w nurse - unresponsive, neuro asked to see. DNR. Vital Signs: Vital Signs Date Time Temp Pulse Resp B/P (MAP) Pulse Ox O2 Delivery O2 Flow Rate FiO2 09/11/20 12:00 Mechanical Ventilator 40.0 09/11/20 11:50 99 09/11/20 11:21 79 197/70 09/11/20 08:03 97.6 18 97.6 Labs: Laboratory Tests Test 09/10/20 12:25 09/10/20 17:11 09/11/20 00:24 09/11/20 04:15 Glucose (Fingerstick) 170 mg/dL 146 mg/dL 196 mg/dL White Blood Count 9.2 x10^3/uL Red Blood Count 3.58 x10^6/uL Hemoglobin 11.0 g/dL Hematocrit 33.1 % Mean Corpuscular Volume 93 fL Mean Corpuscular Hemoglobin 31 pg Mean Corpuscular Hemoglobin Concent 33 g/dL Red Cell Distribution Width 15.5 % Platelet Count 120 x10^3/uL Neutrophils (%) (Auto) 91 % Lymphocytes (%) (Auto) 6 % Monocytes (%) (Auto) 3 % Eosinophils (%) (Auto) 0 % Basophils (%) (Auto) 0 % Neutrophils # (Auto) 8.3 x10^3/uL Lymphocytes # (Auto) 0.5 x10^3/uL Monocytes # (Auto) 0.3 x10^3/uL Eosinophils # (Auto) 0.0 x10^3/uL Basophils # (Auto) 0.0 x10^3/uL Test 09/11/20 07:32 09/11/20 08:15 09/11/20 09:55 Glucose (Fingerstick) 235 mg/dL O2 Saturation 98 % Arterial Blood pH 7.55 Arterial Blood pCO2 at Patient Temp 25 mmHg Arterial Blood pO2 at Patient Temp 166 mmHg Arterial Blood HCO3 21 mmol/L Arterial Blood Base Excess 0 mmol/L FiO2 60 Sodium Level 146 mmol/L Potassium Level 3.4 mmol/L Chloride Level 105 mmol/L Carbon Dioxide Level 24 mmol/L Anion Gap 17 Blood Urea Nitrogen 38 mg/dL Creatinine 4.0 mg/dL Estimated GFR (Cockcroft-Gault) 13.1 BUN/Creatinine Ratio 10 Glucose Level 264 mg/dL Lactic Acid Level 1.2 mmol/L Calcium Level 8.7 mg/dL Magnesium Level 2.0 mg/dL Total Bilirubin 0.7 mg/dL Aspartate Amino Transf (AST/SGOT) 436 U/L Alanine Aminotransferase (ALT/SGPT) 514 U/L Alkaline Phosphatase 125 U/L Troponin I Quantitative 0.105 ng/mL Total Protein 5.6 g/dL Albumin 3.2 g/dL Albumin/Globulin Ratio 1.3 BLOOD CULTURE Preliminary NO GROWTH AFTER 1 DAY Imaging: CXR 09/11 Impression: 1. The endotracheal tube tip is again seen to be near the saida and directed towards the right mainstem bronchus. 2. Less confluent airspace opacities on the right and a less noticeable infiltrate at the upper left hilum though airspace disease persists on both sides. Possible development of bilateral pleural effusions but this could be artifactual from summation. Recommend attention on follow-up. PE: GEN: intubated in COVID isolation LUNGS: vent HEART: RRR ABD: non-distended NEURO/PSYCH: unresponsive A/P: S/p arrest, resp failure, COVID-19 infection ACD (stable), elevated LFTs (better), h/o GERD -- Continue same per GI, await neuro opinion. Justicifation of Admission Dx: Justifications for Admission: Justification of Admission Dx: Yes NATALIA REYES Sep 11, 2020 12:23
[2020-09-11] MEDS ORDERED: REMDESIVIR 100mg in NORMAL SALINE 250ML X 4 DAYS IV SCH (13:00)
[2020-09-11] MEDS: cefTRIAXone IV Push 1 GM VIAL. IVP SCH (13:22)
--- NOTE | 2020-09-11 13:33 | PDOC2 ---
NEUROLOGY CONSULT Date of Service DOS: DATE: 09/11/20 TIME: 13:25 Reason for Consult Reason for Consult: Post code Referring Physician Referring Physician: Dr. Ferro Source Source: Chart review History of Present Illness History of Present Illness The patient is a 75-year-old right-handed female with end-stage renal disease on dialysis and chronic obstructive pulmonary disease who called 911 yesterday morning because of dyspnea. By the time they arrived, she was unresponsive on the floor and asystole. CPR lasted 20 minutes. She had several rounds of epinephrine. Pulse was regained and the patient was brought to the emergency department. Patient has been found to be Covid positive. There is no history of stroke, seizure, or head injury. Patient was made DO NOT RESUSCITATE. Past Medical History Cardiovascular: CAD, CHF, HTN, Hyperlipidemia, Pulmonary hypertension, Other (Sleep apnea) Pulmonary: COPD GI: Irritable bowel disease Heme/Onc: Anemia NOS ENT: Allergic Rhinitis Renal/: Chronic renal failure (Dialysis), Other (Renal cysts) Endocrine: Diabetes, Other (Benign thyroid masses) Past Surgical History Past Surgical History: Cholecystectomy, Tonsillectomy, Hysterectomy Family History Family History: Other (Unobtainable) Social History Social History Lives on her own Current Medications Current Medications Current Medications Calcium Gluconate (Calcium Gluconate) 1,000 mg 1X ONCE IVP Last administered on 09/10/20at 11:28; Start 09/10/20 at 05:00; Stop 09/10/20 at 05:01; Status DC Ceftriaxone Sodium (Rocephin) 1 gm 1X ONCE IVP ; Start 09/10/20 at 05:30; Stop 09/10/20 at 05:31; Status DC Azithromycin 250 ml @ 250 mls/hr 1X ONCE IV ; Start 09/10/20 at 05:30; Stop 09/10/20 at 06:29; Status DC Fentanyl Citrate 30 ml @ 0 mls/hr CONT PRN IV SEE PROTOCOL; Start 09/10/20 at 07:30 Chlorhexidine Gluconate (Peridex) 15 ml BID MM Last administered on 09/10/20at 23:37; Start 09/10/20 at 09:00 Morphine Sulfate (Morphine Sulfate) 2 mg PRN Q1HR PRN IV SEE COMMENTS.; Start 09/10/20 at 07:15 Morphine Sulfate (Morphine Sulfate) 4 mg PRN Q1HR PRN IV SEE COMMENTS.; Start 09/10/20 at 07:15 Pantoprazole Sodium (Protonix) 40 mg DAILYAC PO ; Start 09/10/20 at 07:30; Stop 09/10/20 at 13:41; Status DC Heparin Sodium (Porcine) (Heparin Sodium) 5,000 unit Q12HR SQ Last administered on 09/11/20at 09:47; Start 09/10/20 at 09:00 Acetaminophen (Tylenol) 650 mg PRN Q6HRS PRN PO MILD PAIN / TEMP > 100.3'F; Start 09/10/20 at 07:30 Insulin Human Lispro (HumaLOG) 0-8 UNITS Q6HRS SQ ; Start 09/10/20 at 08:00 Ceftriaxone Sodium (Rocephin) 1 gm 1X ONCE IVP Last administered on 09/10/20at 09:00; Start 09/10/20 at 09:00; Stop 09/10/20 at 09:01; Status DC Azithromycin 250 ml @ 250 mls/hr 1X ONCE IV Last administered on 09/10/20at 09:39; Start 09/10/20 at 09:00; Stop 09/10/20 at 09:59; Status DC Norepinephrine Bitartrate 8 mg/ Dextrose 258 ml @ 16.062 mls/ hr CONT PRN IV PER PROTOCOL; Start 09/10/20 at 10:30 Remdesivir 200 mg/ Sodium Chloride 210 ml @ 210 mls/hr 1X ONCE IV Last administered on 09/10/20at 12:41; Start 09/10/20 at 13:00; Stop 09/10/20 at 13:59; Status DC Remdesivir 100 mg/ Sodium Chloride 230 ml @ 460 mls/hr Q24H IV Last administered on 09/11/20at 12:33; Start 09/11/20 at 13:00; Stop 09/14/20 at 13:29 Ceftriaxone Sodium (Rocephin) 1 gm Q24H IVP Last administered on 09/11/20at 13:22; Start 09/10/20 at 13:00 Doxycycline Hyclate 100 mg/ Dextrose 100 ml @ 50 mls/hr Q12HR IV Last administered on 09/11/20at 09:38; Start 09/10/20 at 13:00 Methylprednisolone Sodium Succinate (SOLU-Medrol 125MG VIAL) 125 mg Q8HRS IV Last administered on 09/11/20at 13:22; Start 09/10/20 at 13:00 Pantoprazole Sodium (PROTONIX VIAL for IV PUSH) 40 mg DAILYAC IVP Last administ ered on 09/11/20at 09:37; Start 09/10/20 at 14:00 Sodium Chloride 1,000 ml @ 1,000 mls/hr Q1H PRN IV hypotension; Start 09/10/20 at 14:10; Stop 09/10/20 at 20:09; Status DC Albumin Human 200 ml @ 200 mls/hr 1X PRN PRN IV Hypotension; Start 09/10/20 at 14:15; Stop 09/10/20 at 20:14; Status DC Sodium Chloride 1,000 ml @ 400 mls/hr Q2H30M PRN IV PATENCY; Start 09/10/20 at 14:10; Stop 09/11/20 at 02:09; Status DC Info (PHARMACY MONITORING -- do not chart) 1 each PRN DAILY PRN MC SEE COMMENTS; Start 09/10/20 at 14:15 Info (PHARMACY MONITORING -- do not chart) 1 each PRN DAILY PRN MC SEE COMMENTS; Start 09/10/20 at 14:15; Stop 09/10/20 at 14:19; Status DC Magnesium Sulfate 50 ml @ 25 mls/hr PRN DAILY PRN IV for Mag < 1.7 on am labs; Start 09/11/20 at 09:30 Metoprolol Tartrate (Lopressor Vial) 5 mg Q6HRS IVP Last administered on 09/11/20at 11:21; Start 09/11/20 at 12:00 Labetalol HCl (Normodyne Iv Push) 20 mg PRN Q2HR PRN IVP HYPERTENSION; Start 09/11/20 at 10:30 Active Scripts Active Ondansetron Hcl 4 Mg Tablet 4 Mg PO BID PRN Pantoprazole Sodium (Pantoprazole Sodium) 40 Mg Tablet. 40 Mg PO DAILYAC 30 Days Isosorbide Mononitrate Er (Isosorbide Mononitrate) 60 Mg Tab.er.24h 1 Tab PO DAILY Aspirin Ec (Aspirin) 81 Mg Tablet. 81 Mg PO DAILYWBKFT 30 Days Diltiazem 24Hr Cd (Diltiazem HCl) 240 Mg Cap.er.24h 240 Mg PO DAILY 30 Days Coreg (Carvedilol) 25 Mg Tablet 1 Tab PO BID Reported Hydralazine Hcl 25 Mg Tablet 1 Tab PO TID Lexapro (Escitalopram Oxalate) 5 Mg Tablet 1 Tab PO DAILY Amlodipine Besylate 10 Mg Tablet 10 Mg PO DAILY Lipitor (Atorvastatin Calcium) 40 Mg Tablet 1 Tab PO DAILY Allergies Allergies: Coded Allergies: hydralazine (Verified Allergy, Intermediate, 09/11/20) lisinopril (Verified Allergy, Intermediate, 04/20/19) cough metformin (Verified Allergy, Intermediate, 04/20/19) sertraline (Verified Allergy, Intermediate, 04/20/19) ROS Review of System Unobtainable Physical Exam Physical Examination General: Well-developed, well-nourished black female, intubated, no sedation, in no acute distress HEENT: Normocephalic andatraumatic.Temporal arteriespulsatile and nontender. Neck: Supple without bruit, no meningismus Musculoskeletal: Stability:see neurologic. Gait exam:see neurologic. Tone:see neurologic.Strength:see neurologic. Neurological: Neurology Brain note Prerequisites (all must be checked) x Coma, irreversible and cause known. x Neuroimaging explains coma. x [employer] depressant drug effect absent (if indicated toxicology screen; x if barbiturates given, serum level <10 g/mL). x No evidence of residual paralytics (electrical stimulation if paralytics used). x Absence of severe acid-base, electrolyte, endocrine abnormality. x Normothermia or mild hypothermia (core temperature >36C). x Systolic blood pressure =100 mm Hg. x No spontaneous respirations. Examination (all must be checked) x Pupils nonreactive to bright light. x Corneal reflex absent. x Oculocephalic reflex absent (tested only if C-spineintegrity ensured). x Oculovestibular reflex absent. x No facial movement to noxious stimuli at supraorbital nerve, temporomandibular joint. x Gag reflex absent. x Cough reflex absent to tracheal suctioning. x Absence of motor response to noxious stimuli in all four limbs (spinally mediated reflexes are permissible). Vitals VITALS Vital Signs Date Time Temp Pulse Resp B/P (MAP) Pulse Ox O2 Delivery O2 Flow Rate FiO2 09/11/20 13:00 82 16 207/83 (124) 100 Ventilator 40.0 09/11/20 12:00 97.7 97.7 Labs Labs Laboratory Tests Test 09/10/20 04:36 09/10/20 04:56 09/10/20 05:10 09/10/20 05:29 White Blood Count 7.8 x10^3/uL (4.0-11.0) Red Blood Count 3.07 x10^6/uL (3.50-5.40) Hemoglobin 9.4 g/dL (12.0-15.5) Hematocrit 29.4 % (36.0-47.0) Mean Corpuscular Volume 96 fL (79-100) Mean Corpuscular Hemoglobin 31 pg (25-35) Mean Corpuscular Hemoglobin Concent 32 g/dL (31-37) Red Cell Distribution Width 15.4 % (11.5-14.5) Platelet Count 156 x10^3/uL (140-400) Neutrophils (%) (Auto) 62 % (31-73) Lymphocytes (%) (Auto) 33 % (24-48) Monocytes (%) (Auto) 4 % (0-9) Eosinophils (%) (Auto) 1 % (0-3) Basophils (%) (Auto) 1 % (0-3) Neutrophils # (Auto) 4.8 x10^3/uL (1.8-7.7) Lymphocytes # (Auto) 2.6 x10^3/uL (1.0-4.8) Monocytes # (Auto) 0.3 x10^3/uL (0.0-1.1) Eosinophils # (Auto) 0.0 x10^3/uL (0.0-0.7) Basophils # (Auto) 0.1 x10^3/uL (0.0-0.2) Segmented Neutrophils % 51 % (35-66) Band Neutrophils % 4 % (0-9) Lymphocytes % 43 % (24-48) Monocytes % 2 % (0-10) Platelet Estimate Adequate (ADEQUATE) Prothrombin Time 16.8 SEC (11.7-14.0) Prothromb Time International Ratio 1.4 (0.8-1.1) Activated Partial Thromboplast Time 42 SEC (24-38) Sodium Level 141 mmol/L (136-145) Potassium Level 5.1 mmol/L (3.5-5.1) Chloride Level 102 mmol/L (98-107) Carbon Dioxide Level 20 mmol/L (21-32) Anion Gap 19 (6-14) 21 mmol/L (6-14) Blood Urea Nitrogen 58 mg/dL (7-20) Creatinine 6.8 mg/dL (0.6-1.0) Estimated GFR (Cockcroft-Gault) 7.1 BUN/Creatinine Ratio 9 (6-20) Glucose Level 374 mg/dL (70-99) 366 mg/dL (70-99) Lactic Acid Level 10.9 mmol/L (0.4-2.0) Calcium Level 7.9 mg/dL (8.5-10.1) Magnesium Level 2.3 mg/dL (1.8-2.4) Total Bilirubin 0.4 mg/dL (0.2-1.0) Aspartate Amino Transf (AST/SGOT) 601 U/L (15-37) Alanine Aminotransferase (ALT/SGPT) 621 U/L (14-59) Alkaline Phosphatase 121 U/L (46-116) Troponin I Quantitative 0.044 ng/mL (0.000-0.055) AR-Pze-D-Type Natriuretic Peptide 74219 pg/mL (0-449) Total Protein 5.4 g/dL (6.4-8.2) Albumin 3.1 g/dL (3.4-5.0) Albumin/Globulin Ratio 1.3 (1.0-1.7) Bedside Hemoglobin 10.2 g/dL (12-15) Bedside Hematocrit 30 % (36-40) Bedside Sodium 137 mmol/L (135-145) Bedside Potassium 4.8 mmol/L (3.5-5.0) Bedside Chloride 102 mmol/L (98-110) Bedside Total CO2 21 mmol/L (23-32) Bedside Blood Urea Nitrogen 59 mg/dL (8-26) Bedside Creatinine 6.4 mg/dL (0.5-1.4) Bedside Ionized Calcium (Xavier) 1.05 mmol/L (1.13-1.32) O2 Saturation 98 % (92-99) Arterial Blood pH 7.26 (7.35-7.45) Arterial Blood pH (Temp corrected) 7.26 Arterial Blood pCO2 at Patient Temp 37 mmHg (35-46) Arterial Blood pCO2 (Temp correct) 37 mmHg Arterial Blood pO2 at Patient Temp 171 mmHg (65-108) Arterial Blood pO2 (Temp corrected) 173 mmHg Arterial Blood HCO3 16 mmol/L (21-28) Arterial Blood Base Excess -10 mmol/L (-3-3) Oxyhemoglobin 97.2 % Methemoglobin 0.3 % (0.0-1.9) Carbon Monoxide, Quantitative 0.3 % (0.0-1.9) FiO2 100 SARS-CoV-2 Antigen (Rapid) Positive (NEGATIVE) Test 09/10/20 07:15 09/10/20 07:45 09/10/20 12:25 09/10/20 17:11 Lactic Acid Level 4.9 mmol/L (0.4-2.0) O2 Saturation 98 % (92-99) Arterial Blood pH 7.44 (7.35-7.45) Arterial Blood pCO2 at Patient Temp 32 mmHg (35-46) Arterial Blood pO2 at Patient Temp 205 mmHg (65-108) Arterial Blood HCO3 21 mmol/L (21-28) Arterial Blood Base Excess -3 mmol/L (-3-3) FiO2 60 Glucose (Fingerstick) 170 mg/dL (70-99) 146 mg/dL (70-99) Test 09/11/20 00:24 09/11/20 04:15 09/11/20 07:32 09/11/20 08:15 Glucose (Fingerstick) 196 mg/dL (70-99) 235 mg/dL (70-99) White Blood Count 9.2 x10^3/uL (4.0-11.0) Red Blood Count 3.58 x10^6/uL (3.50-5.40) Hemoglobin 11.0 g/dL (12.0-15.5) Hematocrit 33.1 % (36.0-47.0) Mean Corpuscular Volume 93 fL (79-100) Mean Corpuscular Hemoglobin 31 pg (25-35) Mean Corpuscular Hemoglobin Concent 33 g/dL (31-37) Red Cell Distribution Width 15.5 % (11.5-14.5) Platelet Count 120 x10^3/uL (140-400) Neutrophils (%) (Auto) 91 % (31-73) Lymphocytes (%) (Auto) 6 % (24-48) Monocytes (%) (Auto) 3 % (0-9) Eosinophils (%) (Auto) 0 % (0-3) Basophils (%) (Auto) 0 % (0-3) Neutrophils # (Auto) 8.3 x10^3/uL (1.8-7.7) Lymphocytes # (Auto) 0.5 x10^3/uL (1.0-4.8) Monocytes # (Auto) 0.3 x10^3/uL (0.0-1.1) Eosinophils # (Auto) 0.0 x10^3/uL (0.0-0.7) Basophils # (Auto) 0.0 x10^3/uL (0.0-0.2) O2 Saturation 98 % (92-99) Arterial Blood pH 7.55 (7.35-7.45) Arterial Blood pCO2 at Patient Temp 25 mmHg (35-46) Arterial Blood pO2 at Patient Temp 166 mmHg (65-108) Arterial Blood HCO3 21 mmol/L (21-28) Arterial Blood Base Excess 0 mmol/L (-3-3) FiO2 60 Test 09/11/20 09:55 09/11/20 12:44 Sodium Level 146 mmol/L (136-145) Potassium Level 3.4 mmol/L (3.5-5.1) Chloride Level 105 mmol/L (98-107) Carbon Dioxide Level 24 mmol/L (21-32) Anion Gap 17 (6-14) Blood Urea Nitrogen 38 mg/dL (7-20) Creatinine 4.0 mg/dL (0.6-1.0) Estimated GFR (Cockcroft-Gault) 13.1 BUN/Creatinine Ratio 10 (6-20) Glucose Level 264 mg/dL (70-99) Lactic Acid Level 1.2 mmol/L (0.4-2.0) Calcium Level 8.7 mg/dL (8.5-10.1) Magnesium Level 2.0 mg/dL (1.8-2.4) Total Bilirubin 0.7 mg/dL (0.2-1.0) Aspartate Amino Transf (AST/SGOT) 436 U/L (15-37) Alanine Aminotransferase (ALT/SGPT) 514 U/L (14-59) Alkaline Phosphatase 125 U/L (46-116) Troponin I Quantitative 0.105 ng/mL (0.000-0.055) Total Protein 5.6 g/dL (6.4-8.2) Albumin 3.2 g/dL (3.4-5.0) Albumin/Globulin Ratio 1.3 (1.0-1.7) Glucose (Fingerstick) 299 mg/dL (70-99) Laboratory Tests Test 09/10/20 17:11 09/11/20 00:24 09/11/20 04:15 09/11/20 07:32 Glucose (Fingerstick) 146 mg/dL (70-99) 196 mg/dL (70-99) 235 mg/dL (70-99) White Blood Count 9.2 x10^3/uL (4.0-11.0) Red Blood Count 3.58 x10^6/uL (3.50-5.40) Hemoglobin 11.0 g/dL (12.0-15.5) Hematocrit 33.1 % (36.0-47.0) Mean Corpuscular Volume 93 fL (79-100) Mean Corpuscular Hemoglobin 31 pg (25-35) Mean Corpuscular Hemoglobin Concent 33 g/dL (31-37) Red Cell Distribution Width 15.5 % (11.5-14.5) Platelet Count 120 x10^3/uL (140-400) Neutrophils (%) (Auto) 91 % (31-73) Lymphocytes (%) (Auto) 6 % (24-48) Monocytes (%) (Auto) 3 % (0-9) Eosinophils (%) (Auto) 0 % (0-3) Basophils (%) (Auto) 0 % (0-3) Neutrophils # (Auto) 8.3 x10^3/uL (1.8-7.7) Lymphocytes # (Auto) 0.5 x10^3/uL (1.0-4.8) Monocytes # (Auto) 0.3 x10^3/uL (0.0-1.1) Eosinophils # (Auto) 0.0 x10^3/uL (0.0-0.7) Basophils # (Auto) 0.0 x10^3/uL (0.0-0.2) Test 09/11/20 08:15 09/11/20 09:55 09/11/20 12:44 O2 Saturation 98 % (92-99) Arterial Blood pH 7.55 (7.35-7.45) Arterial Blood pCO2 at Patient Temp 25 mmHg (35-46) Arterial Blood pO2 at Patient Temp 166 mmHg (65-108) Arterial Blood HCO3 21 mmol/L (21-28) Arterial Blood Base Excess 0 mmol/L (-3-3) FiO2 60 Sodium Level 146 mmol/L (136-145) Potassium Level 3.4 mmol/L (3.5-5.1) Chloride Level 105 mmol/L (98-107) Carbon Dioxide Level 24 mmol/L (21-32) Anion Gap 17 (6-14) Blood Urea Nitrogen 38 mg/dL (7-20) Creatinine 4.0 mg/dL (0.6-1.0) Estimated GFR (Cockcroft-Gault) 13.1 BUN/Creatinine Ratio 10 (6-20) Glucose Level 264 mg/dL (70-99) Lactic Acid Level 1.2 mmol/L (0.4-2.0) Calcium Level 8.7 mg/dL (8.5-10.1) Magnesium Level 2.0 mg/dL (1.8-2.4) Total Bilirubin 0.7 mg/dL (0.2-1.0) Aspartate Amino Transf (AST/SGOT) 436 U/L (15-37) Alanine Aminotransferase (ALT/SGPT) 514 U/L (14-59) Alkaline Phosphatase 125 U/L (46-116) Troponin I Quantitative 0.105 ng/mL (0.000-0.055) Total Protein 5.6 g/dL (6.4-8.2) Albumin 3.2 g/dL (3.4-5.0) Albumin/Globulin Ratio 1.3 (1.0-1.7) Glucose (Fingerstick) 299 mg/dL (70-99) Images Images CT head without contrast PQRS statement: CT scans at this facility use dose reduction including either automated exposure control, iterative reconstructions, and /or weight based radiation dosing via mA and kV modification when appropriate to reduce radiation dose to as low as reasonably achievable. HISTORY: Cardiac arrest. FINDINGS: No intracranial hemorrhage, mass, hydrocephalus, extra-axial fluid collections or infarction. Orbits, mastoids and bones are unremarkable. IMPRESSION: No acute abnormality. Assessment/Plan Assessment/Plan Impression: Examination consistent with brain , I have ordered an apnea test to confirm. Recommendations: Apnea testing: Patient is hemodynamically stable. Ventilator adjusted to provide normocarbia (PaCO2 3545 mm Hg). Patient preoxygenated with 100% FiO2 for >10 minutes toPaO2 >200 mm Hg. Patient well-oxygenated with a positive end-expiratory pressure (PEEP) of 5 cm of water. Provide oxygen via a suction catheter to the level of the saida at 6 L/min or attach T-piece with continuous positive airway pressure (CPAP) at 10 cm H2O. Disconnect ventilator. Spontaneous respirations absent. Arterial blood gas drawn at 810 minutes, patient reconnected to ventilator. PCO2 =60 mm Hg, or 20 mm Hg rise from normal baseline value. OR: Apnea test aborted. Thank you for letting me help with the patient's care. ELISHA LANDRUM MD Sep 11, 2020 13:33
[2020-09-11 13:40] LABS: BASE EXCESS ABG -1 mmol/L (-3-3); HCO3 ABG 23 mmol/L (21-28); PCO2 ABG 36 mmHg (35-46); PO2 ABG 80 mmHg (65-108); SAT O2 ABG 95 % (92-99)
[2020-09-11 13:42] LABS: FIO2 ABG 40
[2020-09-11 14:20] LABS: BASE EXCESS ABG -1 mmol/L (-3-3); HCO3 ABG 26 mmol/L (21-28); PCO2 ABG 59 mmHg (35-46); PO2 ABG 496 mmHg (65-108); SAT O2 ABG 99 % (92-99)
[2020-09-11 14:24] LABS: FIO2 ABG 45
--- NOTE | 2020-09-11 14:51 | NUR ---
APNEA TEST POSITIVE
--- NOTE | 2020-09-11 15:00 | NUR ---
Dr. Peters called informed Juliet Delgado of his findings/assessment see Dr. Peters note. will inform Dr. Ferro , and call patient special officer.
--- NOTE | 2020-09-11 15:00 | NUR ---
Have reviewed and agree with documentation completed by internet specialist and have made changes as needed/appropriate.
--- NOTE | 2020-09-11 15:46 | NUR ---
Dr. Ferro called update given,talked with Juliet pina, sewer connector called wishes not to come, family notified by Juliet, will proceed with extubation
--- NOTE | 2020-09-11 16:11 | NUR ---
patient pronounced x 2 nurses see pronouncement of sheet Dr. Ferro informed, Juliet Delgado informed patient health care agent/friend
--- NOTE | 2020-09-13 09:36 | PDOC3 ---
IM DISCHARGE SUMMARY Date of Admission Date of Admission Date of Admission: Sep 10, 2020 at 05:15 Date of Discharge Date of Discharge September 11, 2020 Primary Diagnosis Primary Diagnosis 1. Acute cardiac arrest with status post CPR 2. Acute pulmonary edema. 3. End-stage renal disease, on hemodialysis. 4. Acute on chronic diastolic congestive heart failure. 5. COVID-19 pneumonia. 6. Lactic acidosis, likely due to cardiac arrest. 7. Elevated liver function tests, possibly shock liver. 8. Diabetes mellitus, not controlled, hyperglycemia, may be due to a recent cardiac arrest and resuscitation. The patient used to take Levemir 20 units subcutaneous daily previously, which had to be adjusted last time due to hypoglycemia. 9. Hyperlipidemia. 10. Arthritis. 11. Complex renal cysts. 12. Depression. 13. Diverticulosis. 14. Hiatal hernia. 15. Gastritis 16. Hemorrhoids. 17. Severe obstructive sleep apnea with CPAP and mild hypertension. Consults Consults Geronimo Peters MD; Landen Garcia MD; Crystal Padilla MD; Kathy Dotson MD; Jevon Schaefer MD; Domingo Ramos MD Brief hospital course Brief hospital course This is a 75-year-old female who has end-stage renal disease and on hemodialysis with multiple medical problems including diastolic heart failure, diverticulosis, recent admission for abdominal pain, nausea and vomiting and a recent workup for enlarged thyroid, especially on the right side with biopsies on the right side negative for malignancy and on the left side positive for atypical cells. Called 911 early this morning because of dyspnea. By the time the paramedics arrived, she was noted to be unresponsive on the floor, she was in asystole. She received 20 minutes of CPR and was intubated. She received about 5 mg of epinephrine in total. She regained her pulse. The patient was then brought to [facility] Emergency Room and admitted for further evaluation and management. Chest x-ray showed central vascular congestion and changes of congestive heart failure and volume overload. WBC count 7.8, hemoglobin 9.4, platelet count is 156,000. Rapid COVID test was positive in the Emergency Room. ABG showed a pH 7.26, pCO2 of 37, and pO2 of 173. Sodium 141, potassium 5.1, BUN 58, creatinine 6.8, glucose 374 and 366. Lactic acid 10.9, calcium 7.9, AST 601, ALT 621, alkaline phosphatase 121. Albumin 3.1. BNP 33,118. Troponin is 0.044. INR is 1.4. Because of the acute cardiac arrest, the patient was intubated and admitted to Intensive Care Unit. For more details regarding the past history, family history, social history, surgical history and other details, please refer to History and Physical. Admit to ICU. We will keep in isolation due to COVID infection. Consult Dr. Thomas for Cardiology evaluation and management, Dr. Rivera for Pulmonary evaluation and management, Dr. Landen Garcia for Infectious Disease evaluation and management, and Dr. Ramos for GI evaluation and management. Consult Dr. Padilla for nephrology evaluation and management. We will hold most of the medications. The patient is not a candidate for hypothermia protocol due to COVID-19 infection as well as other factors per Cardiology. Continue Critical Care in ICU. Prognosis of this patient is extremely poor due to her multiple medical problems. COVID-19 pneumonia Was given convalescent plasma yesterday. She has been started on IV Solu- Medrol, remdesivir, Rocephin and doxycycline. Lactic acid level is improving. As per her advanced directives will make her DNR. Accelerated hypertension Diabetes mellitus-he has hyperglycemia but is improving. Elevated LFTs-likely shock liver Advanced directive reviewed. Will get neurology consultation to assess for anoxic encephalopathy. Also talked to the patient's friend Juliet Delgado. Condition, treatment and options extensively discussed with her. Prognosis of this patient is extremely poor. She is agreeable to make her a DNR now and I also concur with that because of patient's severe anoxic encephalopathy clinically. Dr. Dwyer was consulted to evaluate for brain . Apnea test was positive and patient was deemed to have brain . This was discussed with the family and her friend and decision was made to take her off the mechanical ventilation. Patient did not respond to the aggressive measures in the hospital and on September 11, 2020. Medications Medications reviewed and reconciled for discharge. Allergy Allergies Coded Allergies Type Severity Reaction Last Updated Verified hydralazine Allergy Intermediate 09/11/20 Yes lisinopril Allergy Intermediate 04/20/19 Yes metformin Allergy Intermediate 04/20/19 Yes sertraline Allergy Intermediate 04/20/19 Yes Comments Discharge Management - 35 minutes. Patient . Justicifation of Admission Dx: Justifications for Admission: Justification of Admission Dx: Yes DRE CEE MD Sep 13, 2020 09:36
== END 2020-09-11 16:11 | DRG 208 ==
LOC: ER 04:30 → 1 WEST ICU 05:15
PROVIDERS: ADMIT Internal Medicine; ATTEND Internal Medicine
PROC: 5A1945Z Respiratory Ventilation, 24-96 Consecutive Hours (ICD-10-PCS; principal; 2020-09-10)
PROC: XW033E5 Introduction of Remdesivir Anti-infective into Peripheral Vein, Percutaneous Approach, New Technology Group 5 (ICD-10-PCS; 2020-09-10)
PROC: 5A1D70Z Performance of Urinary Filtration, Intermittent, Less than 6 Hours Per Day (ICD-10-PCS; 2020-09-10)
PROC: 0BH17EZ Insertion of Endotracheal Airway into Trachea, Via Natural or Artificial Opening (ICD-10-PCS; 2020-09-10)
PROC: XW13325 Transfusion of Convalescent Plasma (Nonautologous) into Peripheral Vein, Percutaneous Approach, New Technology Group 5 (ICD-10-PCS; 2020-09-11)
DX: U07.1 COVID-19 (principal); J96.01 Acute respiratory failure with hypoxia; N18.6 End stage renal disease; I50.33 Acute on chronic diastolic (congestive) heart failure; J12.89 Other viral pneumonia; J15.9 Unspecified bacterial pneumonia; K72.00 Acute and subacute hepatic failure without coma; G93.1 Anoxic brain damage, not elsewhere classified; I13.2 Hypertensive heart and chronic kidney disease with heart failure and with stage 5 chronic kidney disease, or end stage renal disease; I42.9 Cardiomyopathy, unspecified; J44.0 Chronic obstructive pulmonary disease with (acute) lower respiratory infection; E87.2 Acidosis; E03.9 Hypothyroidism, unspecified; E11.22 Type 2 diabetes mellitus with diabetic chronic kidney disease; E78.5 Hyperlipidemia, unspecified; F32.9 Major depressive disorder, single episode, unspecified; G47.33 Obstructive sleep apnea (adult) (pediatric); I16.0 Hypertensive urgency; I25.10 Atherosclerotic heart disease of native coronary artery without angina pectoris; I27.29 Other secondary pulmonary hypertension; I46.9 Cardiac arrest, cause unspecified; K29.70 Gastritis, unspecified, without bleeding; K44.9 Diaphragmatic hernia without obstruction or gangrene; K57.90 Diverticulosis of intestine, part unspecified, without perforation or abscess without bleeding; K58.0 Irritable bowel syndrome with diarrhea; K64.9 Unspecified hemorrhoids; M19.90 Unspecified osteoarthritis, unspecified site; Z66 Do not resuscitate; K21.9 Gastro-esophageal reflux disease without esophagitis; E11.65 Type 2 diabetes mellitus with hyperglycemia; N28.1 Cyst of kidney, acquired; D63.8 Anemia in other chronic diseases classified elsewhere; Z79.4 Long term (current) use of insulin; Z90.49 Acquired absence of other specified parts of digestive tract; Z90.710 Acquired absence of both cervix and uterus; Z99.2 Dependence on renal dialysis; Z88.8 Allergy status to other drugs, medicaments and biological substances; Z79.899 Other long term (current) drug therapy
CPT/HCPCS: 31500; 36415; 36600; 70450; 71045; 80047; 80053; 82805; 82962; 83605; 83735; 83880; 84484; 85007; 85025; 85610; 85730; 86850; 86900; 86901; 86927; 87040; 87426; 92950; 93005; 94002; 94003; 94760; 99291; C9113; J0456; J0610; J0696; J1644; J1815; J2930; J3490; J7050; J7060; G0378; J7030; P9017